=== PATIENT | female | born 1940 | race Caucasian/White ===

== ENCOUNTER 2016-12-14 17:31 | Inpatient (IN) | payer OTHER ==
--- NOTE | 2016-12-14 18:01 | PDOC ---
Attending Attestation - Resident Resident Name: Carlos Jeter - ED Attending Attestation I have performed the following: I have examined & evaluated the patient, The case was reviewed & discussed with the resident, I agree w/resident's findings & plan, Exceptions are as noted - HPI HPI: 12/14/16 19:08 76y F hx of dementia, HTN, NIDDM, arhtirits, depression presents with L sided chest pain. History is lijited due to her dementia. Per famly, she has been complaining of intermittent chets pain since yesterday, at her day program they noticed her saturation was low and that she was not as active as usual. The family notes the pt has been having increased coughing, especially at night. No associated fever/chills. on exam pt had some rales at the midlung on R chest. Her vitals noted for sat of 85% on RA, vitals otherwise normal. GENERAL: The patient is awake, alert, Nontoxic - in no acute distress. HEAD: Normocephalic, atraumatic. EYES: extraocular movements intact, sclera anicteric, conjunctiva clear. ENT: Normal voice, Moist mucous membranes. NECK: Normal range of motion, supple LUNGS: scant rales at right midlung HEART: Regular rate and rhythm, normal S1 and S2 without murmur, rub or gallop. ABDOMEN: mil dtenderness on L chest/ribs EXTREMITIES: Normal range of motion, no edema. No clubbing or cyanosis. No cords, erythema, or tenderness. NEUROLOGICAL: No facial assymetry, Normal speech, moving all 4 extremities spontaneously and symmetrically PSYCH: Normal mood, normal affect. SKIN: Warm, Dry, normal turgor, consider posisble pneumonia vs copd vs acs unclera what the pts bsaeline saturation is - but pt is not on O2. jaiden lorenzo work 12/14/16 23:08 pt labs reviewed noted for +UTI will admit fo rfurther management due to hypoxia ?pna - levaquin shuld cover both UTI/pna - Physicial Exam PE: 12/15/16 02:24 see above - Medical Decision Making 12/15/16 02:25 see above
[2016-12-14 18:29] LABS: BASOPHIL 0.7 % (0-2.0); EOSINOPHIL 0.4 % (0-4.5); MCH 28.4 pg (25.7-33.7); MCHC 33.2 g/dl (32.0-36.0); MEAN CELL VOLUME 85.5 fl (80-96); MEAN PLT VOLUME 7.8 fl (7.5-11.1); NEUTROPHILS 80.4 % (42.8-82.8); PLATELET COUNT 362 K/MM3 (134-434); RDW 14.1 % (11.6-15.6); WHITE BLOOD COUNT 12.7 K/mm3 (4.0-10.0)
--- NOTE | 2016-12-14 19:24 | PDOC ---
History of Present Illness - General Chief Complaint: Chest Pain Stated Complaint: CHEST PAIN Time Seen by Provider: 12/14/16 17:41 - History of Present Illness Initial Comments: 12/14/16 19:01 Patient is a 76 year old female with a history of dementia, HTN, arthritis who presents with left sided chest pain and fatigue. The patient is accompanied by her daughter who assists in providing the history. They report a week history of increased fatigue and isolation over the past week. Over the past 2 days however, the patient began experiencing left sided chest pain and while at her care center today, found to be hypoxic prompting their visit to the ED. She denies fevers, chills, SOB, abdominal pain, or changes with urination or bowel movements. Past History - Past Medical History Allergies/Adverse Reactions: Allergies Allergy/AdvReac Type Severity Reaction Status Date / Time No Known Allergies Allergy Verified 12/14/16 17:35 Home Medications: Ambulatory Orders Cholecalciferol (Vitamin D3) [Vitamin D3 -] 500,000 unit PO WEEKLY 12/14/16 Mirtazapine [Remeron -] 15 mg PO DAILY 12/14/16 Nicotine Patch [Nicoderm Patch -] 14 mg TD DAILY 12/14/16 Rivastigmine [Exelon] 9.5 each TD DAILY 12/14/16 Sertraline HCl [Zoloft] 50 mg PO DAILY 12/14/16 Anemia: Yes Diabetes: Yes (type II) HTN: Yes Hypercholesterolemia: Yes - Surgical History Cholecystectomy: Yes - Immunization History Immunization Up to Date: Yes - Psycho/Social/Smoking Cessation Hx Anxiety: Yes Suicidal Ideation: No Smoking History: Current every day smoker Have you smoked in the past 12 months: No Number of Cigarettes Smoked Daily: 6 Information on smoking cessation initiated: No 'Breaking Loose' booklet given: 12/20/13 Hx Alcohol Use: No Drug/Substance Use Hx: No Review of Systems - Review of Systems Constitutional: No: Chills, Fever Respiratory: No: Cough, Shortness of Breath Cardiac (ROS): Yes: Chest Pain. No: Palpitations, Chest Tightness ABD/GI: No: Constipated, Diarrhea, Nausea, Vomiting : No: Burning, Dysuria Integumentary: No: Rash Neurological: No: Headache, Numbness, Tingling, Weakness *Physical Exam - Vital Signs Last Vital Signs Temp Pulse Resp BP Pulse Ox 98.0 F 104 H 20 125/65 97 12/14/16 17:35 12/14/16 17:35 12/14/16 17:35 12/14/16 17:35 12/14/16 17:44 - Physical Exam Comments: 12/14/16 19:28 General Appearance: Nourished. No Apparent Distress HEENT: No Pharyngeal Erythema, Tonsillar Exudate, Tonsillar Erythema Respiratory/Chest: Lungs Clear, Normal Breath Sounds, Reproducible tenderness to palpation of the left chest just under the left breast. No Crackles, Rales, Rhonchi, Wheezing Cardiovascular: Regular Rhythm, Regular Rate. No Murmur, Gallop/S3, Gallop/S4 Gastrointestinal/Abdominal: Normal Bowel Sounds, Soft. No Guarding, Rebound, Tenderness Extremity: Normal Capillary Refill Integumentary: Normal Color, Dry, Warm Neurologic: Alert, Normal Response ED Treatment Course - LABORATORY CBC & Chemistry Diagram: 12/14/16 Unknown 12/14/16 Unknown - ADDITIONAL ORDERS Additional order review: 12/14/16 Unknown RBC 4.52 MCV 85.5 D MCHC 33.2 RDW 14.1 D MPV 7.8 D Neutrophils % 80.4 Lymphocytes % 13.2 D Monocytes % 5.3 Eosinophils % 0.4 D Basophils % 0.7 - RADIOLOGY Radiology Studies Ordered: Category Date Time Status CHEST X-RAY PORTABLE* [RAD] Stat Radiology 12/14/16 17:57 Taken Medical Decision Making - Medical Decision Making 12/14/16 19:28 Patient is a 76 year old female who presents with fatigue and chest pain. Differential includes but is not limited to: ACS, pneumonia, UTI, viral infection, metabolic derangement. We will obtain a cbc, cmp, troponin, EKG, vbg , and chest radiograph to evaluate. It appears that her chest pain is musculoskeletal in nature given that it is reproducible with palpation. 12/14/16 21:06 Chest radiograph does not demonstrate any infiltrates as read by our radiologist , however we feel she my clinically have a pneumonia given her hypoxia and rales on exam. CBC shows an elevated WBC to 12.7. cmp, troponin, EKG, vbg are unremarkable. UA demonstrates positive nitrites and 2+ leuk esterase concerning for UTI. We believe that the patient requires admission for further management given her hypoxia to 85% on RA, possible pneumonia, and UTI. We will contact the admitting team. 12/14/16 21:09 [facility]. *DC/Admit/Observation/Transfer Diagnosis at time of Disposition: Hypoxia UTI (urinary tract infection) Qualifiers: Urinary tract infection type: site unspecified Hematuria presence: without hematuria Qualified Code(s): N39.0 - Urinary tract infection, site not specified - Discharge Dispostion Condition at time of disposition: Guarded Admit: Yes - Referrals Referrals: Cassia Tamayo MD [Primary Care Provider] - - Attestations Physician Attestion: 12/14/16 21:01 I, Dr. Carlos Jeter, attest that this document has been prepared under my direction and personally reviewed by me in its entirety. I further attest, that it accurately reflects all work, treatment, procedures and medical decision -making performed by me.
[2016-12-14 19:47] LABS: VENOUS BLOOD GAS HCO3 24.6 meq/L (19-25); VENOUS PH 7.47 (7.32-7.42)
[2016-12-14 19:50] LABS: URINE APPEARANCE SLCLOUDY; URINE BILIRUBIN NEGATIVE (NEGATIVE); URINE BLOOD 2+ (NEGATIVE); URINE COLOR YELLOW; URINE GLUCOSE (UA) NEGATIVE (NEGATIVE); URINE KETONE NEGATIVE (NEGATIVE); URINE NITRITE POSITIVE (NEGATIVE); URINE PROTEIN NEGATIVE (NEGATIVE); URINE UROBILINOGEN NEGATIVE mg/dL (0.2-1.0)
[2016-12-14 19:56] LABS: ALBUMIN 2.4 g/dl (3.4-5.0); ANION GAP 7 (8-16); CALCIUM 8.6 mg/dL (8.5-10.1); CO2 26 mmol/L (21-32); GLUCOSE,RANDOM 126 mg/dL (74-106)
[2016-12-14 19:59] LABS: URINE BACTERIA RARE /hpf (NONE SEEN); URINE LEUK ESTERASE 2+ (NEGATIVE); URINE MUCUS RARE; URINE RBC 4 /hpf (0-3); URINE WBC 27 /hpf (3-5)
[2016-12-14 20:01] LABS: ALK PHOS 133 U/L (45-117); BILIRUBIN,TOTAL 0.3 mg/dL (0.2-1.0); CPK 25 IU/L (26-192); CREATININE 0.5 mg/dL (0.55-1.02); SGOT/AST 20 U/L (15-37); SGPT/ALT 24 U/L (12-78); TOT PROT 6.5 g/dl (6.4-8.2); TROPONIN I < 0.02 ng/ml (0.00-0.05)
[2016-12-14] MEDS ORDERED: LEVOFLOXACIN 500 MG IVPB 100 ML IVPB ONE ×2 (20:15→20:27)
[2016-12-14] MEDS ORDERED: ACETAMINOPHEN 325 MG TABLET (FP) PO PRN (22:23)
[2016-12-14 22:36] VITALS: BMI 20.6
[2016-12-14] MEDS: SODIUM CHLORIDE 1,000 ML IV SCH (22:41)
--- NOTE | 2016-12-14 23:39 | HP ---
CHIEF COMPLAINT: fatigue, hypoxia PCP: Dr. Alvares HISTORY OF PRESENT ILLNESS: This is a 76 year old female with a past medical history of dementia, HTN, arthritis, HLD, DM and ? COPD who presented to the ED wit fatigue x 1 week and hypoxia at daycare program today. Pt's daughter reports mother has been coughing , but she always coughs because she is a smoker but admits her cough is worse over the past 2 weeks. Pt reports not feeling well and holds below her left breast. She denies pain on minute and then tells her daughter that she has pain. She is a very poor historian and information is obtained from the daughter. When questioned, daughter does admit to new urinary incontinence for the past week or so. Daughter denies fever. ER course was notable for: (1) U/A c/w UTI (2) WBC 12.7 (3) CXR official read pending Recent Travel: denies PAST MEDICAL HISTORY: dementia-mild hypertension, on no medications at present Hyperlipidemia arthritis Diabetes-diet controlled as per daughter PAST SURGICAL HISTORY: cholecystectomy Tubal ligation Social History: Smoking: current every day smoker, 1ppd since age 13 Alcohol: daughter denies Drugs: daughter denies Allergies No Known Allergies Allergy (Verified 12/14/16 17:35) HOME MEDICATIONS: 3 Medication Instructions Recorded Cholecalciferol (Vitamin D3) 500,000 unit PO WEEKLY 12/14/16 [Vitamin D3 -] Mirtazapine [Remeron -] 15 mg PO DAILY 12/14/16 Nicotine Patch [Nicoderm Patch -] 14 mg TD DAILY 12/14/16 Rivastigmine [Exelon] 9.5 each TD DAILY 12/14/16 Sertraline HCl [Zoloft] 50 mg PO DAILY 12/14/16 REVIEW OF SYSTEMS CONSTITUTIONAL: generalized weakness, malaise Absent: fever, chills, diaphoresis, loss of appetite, weight change HEENT: Absent: rhinorrhea, nasal congestion, throat pain, throat swelling, difficulty swallowing, mouth swelling, ear pain, eye pain, visual changes CARDIOVASCULAR: Absent: chest pain, syncope, palpitations, irregular heart rate, lightheadedness , peripheral edema RESPIRATORY: Absent: cough, shortness of breath, dyspnea with exertion, orthopnea, wheezing, stridor, hemoptysis GASTROINTESTINAL: Absent: abdominal pain, abdominal distension, nausea, vomiting, diarrhea, constipation, melena, hematochezia GENITOURINARY: Absent: dysuria, frequency, urgency, hesitancy, hematuria, flank pain, genital pain MUSCULOSKELETAL: Absent: myalgia, arthralgia, joint swelling, back pain, neck pain SKIN: Absent: rash, itching, pallor HEMATOLOGIC/IMMUNOLOGIC: Absent: easy bleeding, easy bruising, lymphadenopathy, frequent infections ENDOCRINE: Absent: unexplained weight gain, unexplained weight loss, heat intolerance, cold intolerance NEUROLOGIC: Absent: headache, focal weakness or paresthesias, dizziness, unsteady gait, seizure, mental status changes, bladder or bowel incontinence PSYCHIATRIC: Absent: anxiety, depression, suicidal or homicidal ideation, hallucinations. PHYSICAL EXAMINATION Vital Signs - 24 hr 3 12/14/16 12/14/16 12/14/16 12/14/16 17:35 17:44 19:15 21:01 Temperature 98.0 F 98.1 F 99.9 F H Pulse Rate 104 H 94 H Pulse Rate [ 101 H Radial] Respiratory 20 24 18 Rate Blood Pressure 125/65 130/54 Blood Pressure 112/70 [Arm] O2 Sat by Pulse 90 L 97 92 L 96 Oximetry (%) GENERAL: Awake, alert, and oriented to person, in no acute distress. HEAD: Normal with no signs of trauma. EYES: Pupils equal, round and reactive to light, extraocular movements intact, sclera anicteric, conjunctiva clear. No lid lag. EARS, NOSE, THROAT: Ears normal, nares patent, oropharynx clear without exudates. Moist mucous membranes. NECK: Normal range of motion, supple without lymphadenopathy, JVD, or masses. LUNGS: Scattered expiratory wheezes, crackles RLL. No accessory muscle use. HEART: Regular rate and rhythm, normal S1 and S2 without murmur, rub or gallop. ABDOMEN: Soft, nontender, not distended, normoactive bowel sounds, no guarding, no rebound, no masses. No hepatomegaly or splenomegaly. MUSCULOSKELETAL: Normal range of motion at all joints. No bony deformities or tenderness. No CVA tenderness. pain under left breast reproducible with palpation UPPER EXTREMITIES: 2+ pulses, warm, well-perfused. No cyanosis. No clubbing. No peripheral edema. LOWER EXTREMITIES: 2+ pulses, warm, well-perfused. No calf tenderness. No peripheral edema. NEUROLOGICAL: Cranial nerves II-XII intact. Normal speech. Normal gait. PSYCHIATRIC: Cooperative. Good eye contact. Appropriate mood and affect. SKIN: Warm, dry, normal turgor, no rashes or lesions noted, normal capillary refill. Laboratory Results - last 24 hr 3 12/14/16 12/14/16 Unknown Unknown 19:35 22:20 WBC 12.7 H D RBC 4.52 Hgb 12.8 D Hct 38.6 D MCV 85.5 D MCH 28.4 D MCHC 33.2 RDW 14.1 D Plt Count 362 D MPV 7.8 D Neutrophils % 80.4 Lymphocytes % 13.2 D Monocytes % 5.3 Eosinophils % 0.4 D Basophils % 0.7 VBG pH 7.47 H POC VBG pCO2 34.3 L POC VBG pO2 86.4 H Mixed VBG HCO3 24.6 Sodium 136 Potassium 3.9 Chloride 103 Carbon Dioxide 26 Anion Gap 7 L BUN 7 D Creatinine 0.5 L Creat Clearance w eGFR > 60 Random Glucose 126 H Lactic Acid 0.7 Calcium 8.6 Total Bilirubin 0.3 D AST 20 D ALT 24 D Alkaline Phosphatase 133 H D Creatine Kinase 25 L Troponin I < 0.02 Total Protein 6.5 Albumin 2.4 L D Urine Color Urine Appearance Urine pH Ur Specific [place] Urine Protein Urine Glucose (UA) Urine Ketones Urine Blood Urine Nitrite Urine Bilirubin Urine Urobilinogen Ur Leukocyte Esterase Urine RBC Urine WBC Ur Epithelial Cells Urine Bacteria Urine Mucus 3 Urine Color Yellow 12/14/16 19:50 Urine Appearance Slcloudy 12/14/16 19:50 Urine pH 5.0 (5.0-8.0) 12/14/16 19:50 Ur Specific [place] 1.015 (1.005-1.025) 12/14/16 19:50 Urine Protein Negative (NEGATIVE) 12/14/16 19:50 Urine Glucose (UA) Negative (NEGATIVE) 12/14/16 19:50 Urine Ketones Negative (NEGATIVE) 12/14/16 19:50 Urine Blood 2+ (NEGATIVE) H 12/14/16 19:50 Urine Nitrite Positive (NEGATIVE) 12/14/16 19:50 Urine Bilirubin Negative (NEGATIVE) 12/14/16 19:50 Ur Leukocyte Esterase 2+ (NEGATIVE) H 12/14/16 19:50 Urine RBC 4 /hpf (0-3) 12/14/16 19:50 Urine WBC 27 /hpf (3-5) 12/14/16 19:50 Ur Epithelial Cells Rare /hpf (FEW) 12/14/16 19:50 Urine Bacteria Rare /hpf (NONE SEEN) 12/14/16 19:50 Urine Mucus Rare 12/14/16 19:50 CXR official read pending, ? atelectasis RLL, ? infiltrate LLL ECG: sinus tachycardia, possible left atrial enlargement, rate 103, QTC 450 ASSESSMENT/PLAN: 76yF with PMH dementia, DM, HTN, HLD, arthritis, ?COPD presented to ED with fatigue and hypoxia. She is being admitted for sepsis. Sepsis secondary to UTI and possible CAP - as evidenced by elevated WBC and tachycardia - will change levaquin to ceftriaxone and zithromax - NS @ 75cc/hr - oxygen 2LNC to maintain oxygen sat above 90 Chest pain - reproducible on palpation, trial of tylenol, likely not cardiac, trend trop x 1 more with am labs COPD exac - daughter reports mother has inhalers at home but does not use them - duoneb QIDR - azithromycin - oxygen nicotine dependence - nicoderm patch dementia - cont exelon patch, daughter will bring from home - daughter reports mother is on aricept as well, but will hold as that is redundant therapy - cont mirtazapine and zoloft for mood and sleep diabetes - cont diet control - BGM BID AC, add novolog if > 200 HTN - monitor BP, initiate meds if indicated DVT PPX - heparin BID FEN - NS @ 75cc/hr - BMP in am - diabetic diet Dispo: Pt currently requires inpatient care for management of her acute conditions. Visit type - Emergency Visit Emergency Visit: Yes ED Registration Date: 12/14/16 Care time: The patient presented to the Emergency Department on the above date and was hospitalized for further evaluation of their emergent condition. - New Patient This patient is new to me today: Yes Date on this admission: 12/14/16 - Critical Care Critical Care patient: No
[2016-12-15] MEDS: ALBUTEROL SO4 2.5/IPRATROPIUM 0.5 INH SOL 3 ML VIAL.NEB. NEB SCH ×4 (00:10→18:03)
[2016-12-15 08:23] LABS: BASOPHIL 0.8 % (0-2.0); EOSINOPHIL 0.3 % (0-4.5); MCH 28.3 pg (25.7-33.7); MCHC 32.9 g/dl (32.0-36.0); MEAN CELL VOLUME 85.9 fl (80-96); MEAN PLT VOLUME 8.3 fl (7.5-11.1); NEUTROPHILS 76.7 % (42.8-82.8); PLATELET COUNT 347 K/MM3 (134-434); RDW 13.8 % (11.6-15.6); WHITE BLOOD COUNT 10.1 K/mm3 (4.0-10.0)
[2016-12-15 08:25] LABS: CPK 16 IU/L (26-192); TROPONIN I < 0.02 ng/ml (0.00-0.05)
[2016-12-15 08:36] LABS: ANION GAP 8 (8-16); CALCIUM 8.3 mg/dL (8.5-10.1); CO2 26 mmol/L (21-32); CREATININE 0.5 mg/dL (0.55-1.02); GLUCOSE,RANDOM 112 mg/dL (74-106)
[2016-12-15] MEDS ORDERED: cefTRIAXone 1 GM/50 ML BAG (PRE-DOCKED) IVPB SCH (10:00)
[2016-12-15] MEDS ORDERED: PT OWN MED DRAWER 7, Y5N ONE (10:23)
[2016-12-15] MEDS ORDERED: cefTRIAXone SODIUM 1 GM VIAL ONE (10:23)
[2016-12-15] MEDS ORDERED: DEXTROSE 5%-WATER - 50 ML IVPB ONE (10:24)
[2016-12-15] MEDS: NICOTINE 14 MG/24 HOURS TOPICAL PATCH TD SCH (10:39)
[2016-12-15] MEDS: SERTRALINE HCL 25 MG TABLET (FP) PO SCH (10:40)
[2016-12-15] MEDS: HEPARIN NA (PORCINE) 5,000 UNITS/ML 1ML VIAL SQ SCH ×2 (10:40→21:32)
[2016-12-15] MEDS: AZITHROMYCIN IVPB 250 ML IVPB SCH (10:40)
[2016-12-15] MEDS: CEFTRIAXONE 1 GM in DEXTROSE 5%-WATER - 50 ML IVPB SCH (10:40)
[2016-12-15] MEDS: SODIUM CHLORIDE 1,000 ML IV SCH (10:45)
[2016-12-15 11:43] LABS: URINE APPEARANCE CLOUDY; URINE BILIRUBIN NEGATIVE (NEGATIVE); URINE BLOOD 1+ (NEGATIVE); URINE COLOR YELLOW; URINE GLUCOSE (UA) 1+ (NEGATIVE); URINE KETONE 1+ (NEGATIVE); URINE LEUK ESTERASE TRACE (NEGATIVE); URINE NITRITE NEGATIVE (NEGATIVE); URINE UROBILINOGEN NEGATIVE mg/dL (0.2-1.0)
[2016-12-15 11:57] LABS: URINE PROTEIN 2+ (NEGATIVE)
[2016-12-15 12:26] LABS: GRANULAR CASTS 7 /lpf; URINE HYALINE CAST 24 /lpf; URINE MUCUS RARE; URINE RBC 3 /hpf (0-3); URINE WBC 29 /hpf (3-5)
[2016-12-15] MEDS: RIVASTIGMINE 9.5 MG/24 HOURS TRANSDERMAL PATCH TD SCH (13:03)
--- NOTE | 2016-12-15 13:27 | EKG ---
Test Reason : Blood Pressure : / mmHG Vent. Rate : 103 BPM Atrial Rate : 103 BPM P-R Int : 142 ms QRS Dur : 078 ms QT Int : 344 ms P-R-T Axes : 044 048 017 degrees QTc Int : 450 ms SINUS TACHYCARDIA POSSIBLE LEFT ATRIAL ENLARGEMENT BORDERLINE ECG WHEN COMPARED WITH ECG OF 20-DEC-2013 18:06, NONSPECIFIC T WAVE ABNORMALITY NOW EVIDENT IN INFERIOR LEADS T WAVE AMPLITUDE HAS DECREASED IN LATERAL LEADS CLINICAL CORRELATION IS RECOMMENDED Confirmed by UNA YEE, CAREN ([id number]) on 12/15/2016 1:27:31 PM Referred By: Confirmed By:CAREN HEART MD
--- NOTE | 2016-12-15 13:33 | PN ---
Physical Exam: SUBJECTIVE: Patient seen and examined at bedside. Sleeping, easily arousable, but quicky falls back to sleep. Family members present including son and daughter. OBJECTIVE: Vital Signs Period Temp Pulse Resp BP Sys/[place] Pulse Ox Last 24 Hr 98.6 F 90 20 108/54 GENERAL: The patient is awake, responsive to questions, but lethargic. In no acute distress. HEAD: Normal with no signs of trauma. EYES: PERRL, extraocular movements intact, sclera anicteric, conjunctiva clear. No ptosis. LUNGS: Breath sounds equal, clear to auscultation bilaterally, no wheezes, no crackles, no accessory muscle use. HEART: Regular rate and rhythm, S1, S2 without murmur, rub or gallop. ABDOMEN: Soft, nontender, nondistended, normoactive bowel sounds, no guarding, no rebound EXTREMITIES: 2+ pulses, warm, well-perfused, no edema. NEUROLOGICAL: Cranial nerves II through XII grossly intact. Normal speech, gait not observed. Laboratory Results - last 24 hr 12/14/16 12/14/16 12/14/16 22:20 Unknown Unknown WBC 12.7 H D RBC 4.52 Hgb 12.8 D Hct 38.6 D MCV 85.5 D MCH 28.4 D MCHC 33.2 RDW 14.1 D Plt Count 362 D MPV 7.8 D Neutrophils % 80.4 Lymphocytes % 13.2 D Monocytes % 5.3 Eosinophils % 0.4 D Basophils % 0.7 Sodium 136 Potassium 3.9 Chloride 103 Carbon Dioxide 26 Anion Gap 7 L BUN 7 D Creatinine 0.5 L Creat Clearance w eGFR > 60 POC Glucometer Random Glucose 126 H Lactic Acid 0.7 Calcium 8.6 Total Bilirubin 0.3 D AST 20 D ALT 24 D Alkaline Phosphatase 133 H D Creatine Kinase 25 L Troponin I < 0.02 Total Protein 6.5 Albumin 2.4 L D Urine Color Urine Appearance Urine pH Urine Protein Urine Glucose (UA) Urine Ketones Urine Blood Urine Nitrite Urine Bilirubin Urine Urobilinogen Ur Leukocyte Esterase Urine RBC Urine WBC Ur Epithelial Cells Hyaline Casts Granular Casts Urine Mucus 12/15/16 12/15/16 12/15/16 06:17 06:30 06:30 WBC 10.1 H RBC 4.26 Hgb 12.1 Hct 36.6 MCV 85.9 MCH 28.3 MCHC 32.9 RDW 13.8 Plt Count 347 MPV 8.3 Neutrophils % 76.7 Lymphocytes % 16.8 D Monocytes % 5.4 Eosinophils % 0.3 Basophils % 0.8 Sodium Cancelled Potassium Cancelled Chloride Cancelled Carbon Dioxide Cancelled Anion Gap Cancelled BUN Cancelled Creatinine Cancelled Creat Clearance w eGFR POC Glucometer 109 Random Glucose Cancelled Lactic Acid Calcium Cancelled Total Bilirubin AST ALT Alkaline Phosphatase Creatine Kinase Troponin I Total Protein Albumin Urine Color Urine Appearance Urine pH Urine Protein Urine Glucose (UA) Urine Ketones Urine Blood Urine Nitrite Urine Bilirubin Urine Urobilinogen Ur Leukocyte Esterase Urine RBC Urine WBC Ur Epithelial Cells Hyaline Casts Granular Casts Urine Mucus 12/15/16 12/15/16 06:30 10:42 WBC RBC Hgb Hct MCV MCH MCHC RDW Plt Count MPV Neutrophils % Lymphocytes % Monocytes % Eosinophils % Basophils % Sodium 140 Potassium 3.9 Chloride 106 Carbon Dioxide 26 Anion Gap 8 BUN 7 Creatinine 0.5 L Creat Clearance w eGFR POC Glucometer Random Glucose 112 H Lactic Acid Calcium 8.3 L Total Bilirubin AST ALT Alkaline Phosphatase Creatine Kinase 16 L Troponin I < 0.02 Total Protein Albumin Urine Color Yellow Urine Appearance Cloudy Urine pH 7.0 D Urine Protein 2+ H Urine Glucose (UA) 1+ H Urine Ketones 1+ H Urine Blood 1+ H Urine Nitrite Negative Urine Bilirubin Negative Urine Urobilinogen Negative Ur Leukocyte Esterase Trace Urine RBC 3 Urine WBC 29 Ur Epithelial Cells Rare Hyaline Casts 24 Granular Casts 7 Urine Mucus Rare Active Medications Generic Name Dose Route Start Last Admin Trade Name Freq PRN Reason Stop Dose Admin Acetaminophen 650 mg 12/14/16 22:23 12/14/16 22:40 Tylenol - PO 650 mg Q6H PRN Administration FEVER OR PAIN Albuterol/Ipratropium 1 amp 12/15/16 00:00 12/15/16 11:33 Duoneb - NEB 1 amp QIDR SUZY Administration Ergocalciferol 50,000 unit 12/14/16 23:45 Drisdol - PO Q7D SUZY Heparin Sodium (Porcine) 5,000 unit 12/15/16 10:00 12/15/16 10:40 Heparin - SQ 5,000 unit BID SUZY Administration Azithromycin 250 mls @ 250 mls/hr 12/15/16 10:00 12/15/16 10:40 Zithromax 500mg Ivpb (Pre-Docked) IVPB 250 mls/hr DAILY SUZY Administration Sodium Chloride 1,000 mls @ 75 mls/hr 12/14/16 22:30 12/15/16 10:45 Normal Saline - IV 75 mls/hr ASDIR SUZY Administration Ceftriaxone Sodium 1 gm/ 50 mls @ 100 mls/hr 12/15/16 10:00 12/15/16 10:40 Dextrose IVPB 100 mls/hr DAILY SUZY Administration Mirtazapine 15 mg 12/15/16 22:00 Remeron - PO HS SUZY Nicotine 14 mg 12/15/16 10:00 12/15/16 10:39 Nicoderm Patch - TD 14 mg DAILY SUZY Administration Rivastigmine 9.5 each 12/15/16 10:00 12/15/16 13:03 Exelon Patch 9.5 Mg/24 Hours - TD 9.5 each DAILY SUZY Administration Sertraline HCl 50 mg 12/15/16 10:00 12/15/16 10:40 Zoloft - PO 50 mg DAILY SUZY Administration ASSESSMENT/PLAN 76 year-old female with a PMH of HTN, HLD, COPD, diet-controlled diabetes, arthritis, and dementia. Current every day smoker. Admitted for sepsis secondary to UTI. Sepsis secondary to UTI --tachycardic to 112, WBC 12.7k on admission, with 27 WBC in urine, meets sepsis criteria --symptoms of frequency, incontinence, fatigue --started on empiric ceftriaxone (day #1); urine culture pending r/o pneumonia --possible LLL infiltrate on CXR --continue empiric azithromycin (day #1) Chest pain --troponins x 2 negative --reproducible on exam --unlikely cardiac source COPD, chronic --active heavy smoker, coughs frequently --duonebs --Nicoderm patch --empiric antibiotics Dementia --continue Exelon patch, mirtazapine, Zoloft Diabeties --diet-controlled - BGM BID AC, add novolog if > 200 Hypertensioin --BP well-controlled --on no meds DVT PPX: subq heparin F/E/N Fluids: PO intake adequate Electrolytes: replete as indicated Nutrition: diabetic Physical therapy eval Dispo: continues to require inpatient care. Full Code. Visit type - Emergency Visit Emergency Visit: Yes ED Registration Date: 12/14/16 Care time: The patient presented to the Emergency Department on the above date and was hospitalized for further evaluation of their emergent condition. - New Patient This patient is new to me today: Yes Date on this admission: 12/15/16 - Critical Care Critical Care patient: No
[2016-12-15] MEDS: MIRTAZAPINE 15 MG TABLET (FP) PO SCH (21:32)
[2016-12-16] MEDS: ALBUTEROL SO4 2.5/IPRATROPIUM 0.5 INH SOL 3 ML VIAL.NEB. NEB SCH ×5 (00:01→23:09)
[2016-12-16 07:44] LABS: BASOPHIL 0.3 % (0-2.0); EOSINOPHIL 1.4 % (0-4.5); MCH 31.1 pg (25.7-33.7); MCHC 33.6 g/dl (32.0-36.0); MEAN CELL VOLUME 92.5 fl (80-96); MEAN PLT VOLUME 7.7 fl (7.5-11.1); NEUTROPHILS 71.7 % (42.8-82.8); PLATELET COUNT 174 K/MM3 (134-434); RDW 13.9 % (11.6-15.6); WHITE BLOOD COUNT 6.3 K/mm3 (4.0-10.0)
[2016-12-16 08:09] LABS: ALBUMIN 2.6 g/dl (3.4-5.0); ALK PHOS 62 U/L (45-117); ANION GAP 8 (8-16); BILIRUBIN,TOTAL 0.4 mg/dL (0.2-1.0); CALCIUM 7.5 mg/dL (8.5-10.1); CO2 24 mmol/L (21-32); CREATININE 0.8 mg/dL (0.55-1.02); GLUCOSE,RANDOM 92 mg/dL (74-106); MAGNESIUM 1.7 mg/dL (1.8-2.4); PHOSPHOROUS 1.5 mg/dL (2.5-4.9); SGOT/AST 8 U/L (15-37); SGPT/ALT 9 U/L (12-78); TOT PROT 5.6 g/dl (6.4-8.2)
--- NOTE | 2016-12-16 09:03 | PN ---
Physical Exam: SUBJECTIVE: Patient seen and examined, sitting on edge of bed. Pencil sketching cordova. No complaints. Denies dysuria, frequency, urgency. OBJECTIVE: Vital Signs Period Temp Pulse Resp BP Sys/De Leon Pulse Ox Last 24 Hr 98.4 F-98.9 F 78-84 18-20 99-108/48-53 GENERAL: The patient is awake, responsive to questions, but lethargic. In no acute distress. HEAD: Normal with no signs of trauma. EYES: PERRL, extraocular movements intact, sclera anicteric, conjunctiva clear. No ptosis. LUNGS: Breath sounds equal, clear to auscultation bilaterally, no wheezes, no crackles, no accessory muscle use. HEART: Regular rate and rhythm, S1, S2 without murmur, rub or gallop. ABDOMEN: Soft, nontender, nondistended, normoactive bowel sounds, no guarding, no rebound EXTREMITIES: 2+ pulses, warm, well-perfused, no edema. NEUROLOGICAL: Cranial nerves II through XII grossly intact. Normal speech, gait not observed. Laboratory Results - last 24 hr 12/15/16 12/15/16 12/16/16 10:42 17:15 06:00 WBC 6.3 D RBC 3.57 L Hgb 11.1 Hct 33.0 MCV 92.5 MCH 31.1 MCHC 33.6 RDW 13.9 Plt Count 174 D MPV 7.7 Neutrophils % 71.7 Lymphocytes % 18.0 Monocytes % 8.6 Eosinophils % 1.4 D Basophils % 0.3 Sodium Potassium Chloride Carbon Dioxide Anion Gap BUN Creatinine Creat Clearance w eGFR POC Glucometer 92 Random Glucose Hemoglobin A1c % Calcium Phosphorus Magnesium Total Bilirubin AST ALT Alkaline Phosphatase Total Protein Albumin Urine Color Yellow Urine Appearance Cloudy Urine pH 7.0 D Ur Specific [place] 1.020 Urine Protein 2+ H Urine Glucose (UA) 1+ H Urine Ketones 1+ H Urine Blood 1+ H Urine Nitrite Negative Urine Bilirubin Negative Urine Urobilinogen Negative Ur Leukocyte Esterase Trace Urine RBC 3 Urine WBC 29 Ur Epithelial Cells Rare Hyaline Casts 24 Granular Casts 7 Urine Mucus Rare 12/16/16 12/16/16 12/16/16 06:00 06:00 06:11 WBC RBC Hgb Hct MCV MCH MCHC RDW Plt Count MPV Neutrophils % Lymphocytes % Monocytes % Eosinophils % Basophils % Sodium 144 Potassium 3.6 Chloride 112 H Carbon Dioxide 24 Anion Gap 8 BUN 6 L Creatinine 0.8 D Creat Clearance w eGFR > 60 POC Glucometer 113 Random Glucose 92 Hemoglobin A1c % 5.4 Calcium 7.5 L Phosphorus 1.5 L Magnesium 1.7 L Total Bilirubin 0.4 D AST 8 L D ALT 9 L D Alkaline Phosphatase 62 D Total Protein 5.6 L Albumin 2.6 L Urine Color Urine Appearance Urine pH Ur Specific [place] Urine Protein Urine Glucose (UA) Urine Ketones Urine Blood Urine Nitrite Urine Bilirubin Urine Urobilinogen Ur Leukocyte Esterase Urine RBC Urine WBC Ur Epithelial Cells Hyaline Casts Granular Casts Urine Mucus Active Medications Generic Name Dose Route Start Last Admin Trade Name Freq PRN Reason Stop Dose Admin Acetaminophen 650 mg 12/14/16 22:23 12/14/16 22:40 Tylenol - PO 650 mg Q6H PRN Administration FEVER OR PAIN Albuterol/Ipratropium 1 amp 12/15/16 00:00 12/16/16 07:15 Duoneb - NEB 1 amp QIDR SUZY Administration Ergocalciferol 50,000 unit 12/16/16 10:00 Drisdol - PO Zuleta@10 SUZY Heparin Sodium (Porcine) 5,000 unit 12/15/16 10:00 12/15/16 21:32 Heparin - SQ 5,000 unit BID SUZY Administration Azithromycin 250 mls @ 250 mls/hr 12/15/16 10:00 12/15/16 10:40 Zithromax 500mg Ivpb (Pre-Docked) IVPB 250 mls/hr DAILY SUZY Administration Ceftriaxone Sodium 1 gm/ 50 mls @ 100 mls/hr 12/15/16 10:00 12/15/16 10:40 Dextrose IVPB 100 mls/hr DAILY SUZY Administration Magnesium Oxide 800 mg 12/16/16 08:57 Mag-Ox - PO 12/16/16 08:58 ONCE ONE Mirtazapine 15 mg 12/15/16 22:00 12/15/16 21:32 Remeron - PO 15 mg HS SUZY Administration Nicotine 14 mg 12/15/16 10:00 12/15/16 10:39 Nicoderm Patch - TD 14 mg DAILY SUZY Administration Potassium Phos/Sodium Phos 1 packet 12/16/16 14:00 Phos-Nak Packet - PO TID SUZY Rivastigmine 9.5 each 12/15/16 10:00 08/12/17 13:03 Exelon Patch 9.5 Mg/24 Hours - TD 9.5 each DAILY SUZY Administration Sertraline HCl 50 mg 12/15/16 10:00 12/15/16 10:40 Zoloft - PO 50 mg DAILY SUZY Administration ASSESSMENT/PLAN 76 year-old female with a PMH of HTN, HLD, COPD, diet-controlled diabetes, arthritis, and dementia. Current every day smoker. Admitted for sepsis secondary to UTI. Sepsis secondary to UTI --tachycardic resolved, WBC wnl --continue ceftriaxone (day #2); switch to PO meds tomorrow if continued improvement r/o pneumonia --possible LLL infiltrate on CXR --continue empiric azithromycin (day #2) Chest pain --troponins x 2 negative --reproducible on exam --unlikely cardiac source COPD, chronic --active heavy smoker, coughs frequently --duonebs --Nicoderm patch --empiric antibiotics Dementia --continue Exelon patch, mirtazapine, Zoloft Diabeties --diet-controlled - BGM BID AC, add novolog if > 200 Hypertensioin --BP well-controlled --on no meds DVT PPX: subq heparin F/E/N Fluids: PO intake adequate Electrolytes: replete as indicated Nutrition: diabetic Physical therapy eval Dispo: continues to require inpatient care. Full Code. Visit type - Emergency Visit Emergency Visit: Yes ED Registration Date: 12/14/16 Care time: The patient presented to the Emergency Department on the above date and was hospitalized for further evaluation of their emergent condition. - New Patient This patient is new to me today: No - Critical Care Critical Care patient: No
[2016-12-16] MEDS ORDERED: PT OWN MED DRAWER 7, Y5N ONE (09:04)
[2016-12-16] MEDS ORDERED: cefTRIAXone SODIUM 1 GM VIAL ONE (09:05)
[2016-12-16] MEDS ORDERED: DEXTROSE 5%-WATER - 50 ML IVPB ONE (09:05)
[2016-12-16] MEDS ORDERED: MAGNESIUM OXIDE 400 MG TABLET (FP) PO ONE (09:10)
[2016-12-16] MEDS: CEFTRIAXONE 1 GM in DEXTROSE 5%-WATER - 50 ML IVPB SCH (09:12)
[2016-12-16] MEDS: AZITHROMYCIN IVPB 250 ML IVPB SCH (09:54)
[2016-12-16] MEDS: NICOTINE 14 MG/24 HOURS TOPICAL PATCH TD SCH (09:54)
[2016-12-16] MEDS: HEPARIN NA (PORCINE) 5,000 UNITS/ML 1ML VIAL SQ SCH ×2 (09:55→21:23)
[2016-12-16] MEDS: RIVASTIGMINE 9.5 MG/24 HOURS TRANSDERMAL PATCH TD SCH (09:55)
[2016-12-16] MEDS: SERTRALINE HCL 25 MG TABLET (FP) PO SCH (09:56)
[2016-12-16] MEDS ORDERED: ERGOCALCIFEROL (VITAMIN D2) 50,000 UNIT CAPSULE (FP) PO SCH (10:00)
[2016-12-16] MEDS: NAPH,MB-DB/K PH,MBDB POWDER PACKET PO SCH ×2 (13:59→21:23)
[2016-12-16] MEDS: MIRTAZAPINE 15 MG TABLET (FP) PO SCH (21:23)
[2016-12-17] MEDS: NAPH,MB-DB/K PH,MBDB POWDER PACKET PO SCH (05:36)
[2016-12-17] MEDS: ALBUTEROL SO4 2.5/IPRATROPIUM 0.5 INH SOL 3 ML VIAL.NEB. NEB SCH ×2 (06:21→11:23)
[2016-12-17] MEDS ORDERED: cefTRIAXone SODIUM 1 GM VIAL ONE (08:32)
[2016-12-17] MEDS ORDERED: DEXTROSE 5%-WATER - 50 ML IVPB ONE (08:32)
[2016-12-17 09:04] VITALS: BP 148/84; PULSE 100; TEMP 98.6
--- NOTE | 2016-12-17 09:30 | DS ---
Physical Exam: SUBJECTIVE: Patient seen and examined at bedside. Feels much better, voices no complaints. OBJECTIVE: Vital Signs Period Temp Pulse Resp BP Sys/De Leon Pulse Ox Last 24 Hr 98.6 F-99.4 F 89-100 18-20 113-148/63-89 92 PHYSICAL EXAM GENERAL: The patient is awake, alert, in no acute distress. HEAD: Normal with no signs of trauma. EYES: PERRL, extraocular movements intact, sclera anicteric, conjunctiva clear. No ptosis. LUNGS: Breath sounds equal, clear to auscultation bilaterally, no wheezes, no crackles, no accessory muscle use. HEART: Regular rate and rhythm, S1, S2 without murmur, rub or gallop. ABDOMEN: Soft, nontender, nondistended, normoactive bowel sounds, no guarding, no rebound EXTREMITIES: 2+ pulses, warm, well-perfused, no edema. NEUROLOGICAL: Cranial nerves II through XII grossly intact. Normal speech, gait not observed. LABS CBCD WBC 6.3 K/mm3 (4.0-10.0) D 12/16/16 06:00 RBC 3.57 M/mm3 (3.60-5.2) L 12/16/16 06:00 Hgb 11.1 GM/dL (10.7-15.3) 12/16/16 06:00 Hct 33.0 % (32.4-45.2) 12/16/16 06:00 MCV 92.5 fl (80-96) 12/16/16 06:00 MCHC 33.6 g/dl (32.0-36.0) 12/16/16 06:00 RDW 13.9 % (11.6-15.6) 12/16/16 06:00 Plt Count 174 K/MM3 (134-434) D 12/16/16 06:00 MPV 7.7 fl (7.5-11.1) 12/16/16 06:00 CMP Sodium 144 mmol/L (136-145) 12/16/16 06:00 Potassium 3.6 mmol/L (3.5-5.1) 12/16/16 06:00 Chloride 112 mmol/L (98-107) H 12/16/16 06:00 Carbon Dioxide 24 mmol/L (21-32) 12/16/16 06:00 Anion Gap 8 (8-16) 12/16/16 06:00 BUN 6 mg/dL (7-18) L 12/16/16 06:00 Creatinine 0.8 mg/dL (0.55-1.02) D 12/16/16 06:00 Creat Clearance w eGFR > 60 (>60) 12/16/16 06:00 Calcium 7.5 mg/dL (8.5-10.1) L 12/16/16 06:00 Total Bilirubin 0.4 mg/dL (0.2-1.0) D 12/16/16 06:00 AST 8 U/L (15-37) L D 12/16/16 06:00 ALT 9 U/L (12-78) L D 12/16/16 06:00 Alkaline Phosphatase 62 U/L (45-117) D 12/16/16 06:00 Total Protein 5.6 g/dl (6.4-8.2) L 12/16/16 06:00 Albumin 2.6 g/dl (3.4-5.0) L 12/16/16 06:00 HOSPITAL COURSE: Date of Admission:12/14/16 Date of Discharge: 12/17/16 76 year-old female with a PMH of HTN, HLD, COPD, diet-controlled diabetes, arthritis, and dementia. Current every day smoker. Admitted for sepsis secondary to UTI. Sepsis secondary to UTI --tachycardic to 112, WBC 12.7k on admission, with 27 WBC in urine, met sepsis criteria --symptoms of frequency, incontinence, fatigue --started on empiric ceftriaxone x 3 doses (day #1); urine culture negative r/o pneumonia --possible LLL infiltrate on CXR --completed azithromycin x 3 days Chest pain --troponins x 2 negative --reproducible on exam --unlikely cardiac source COPD, chronic --active heavy smoker, coughs frequently --duonebs --Nicoderm patch --empiric antibiotics Dementia --continue Exelon patch, mirtazapine, Zoloft Diabeties --diet-controlled - BGM BID AC, add novolog if > 200 Hypertensioin --BP well-controlled --on no meds Minutes to complete discharge: 35 Discharge Summary Reason For Visit: URINARY TRACT INFECTION,HYPOXIA Current Active Problems Hypoxia (Acute) UTI (urinary tract infection) (Acute) Condition: Improved - Instructions Diet, Activity, Other Instructions: Two prescriptions for antibiotics have been sent to your pharmacy. It is very important that you take this medication as directed and that you FINISH all the medication even if you are feeling better. A third prescription has been sent for nicoderm patches. You should follow up with your primary care provider, Dr. Ac, within one week of your discharge. Return to the emergency department for any new or worsening symptoms. Referrals: Cassia Tamayo MD [Primary Care Provider] - 1 Week Disposition: HOME - Home Medications Comprehensive Discharge Medication List: Ambulatory Orders Cholecalciferol (Vitamin D3) [Vitamin D -] 500,000 unit PO WEEKLY 12/14/16 Mirtazapine [Remeron -] 15 mg PO DAILY 12/14/16 Rivastigmine [Exelon] 9.5 each TD DAILY 12/14/16 Sertraline HCl [Zoloft] 50 mg PO DAILY 12/14/16 Azithromycin 250 mg PO DAILY #3 tablet 12/17/16 Ciprofloxacin HCl [Cipro] 500 mg PO BID #10 tablet 12/17/16 Nicotine Patch [Nicoderm Patch -] 14 mg TD DAILY #30 patch 12/17/16 This patient is new to me today: No Emergency Visit: Yes ED Registration Date: 12/14/16 Care time: The patient presented to the Emergency Department on the above date and was hospitalized for further evaluation of their emergent condition. Critical Care patient: No - Discharge Referral Referred to [facility] No
[2016-12-17] MEDS: CEFTRIAXONE 1 GM in DEXTROSE 5%-WATER - 50 ML IVPB SCH (10:07)
[2016-12-17] MEDS ORDERED: PT OWN MED DRAWER 7, Y5N ONE (10:12)
[2016-12-17] MEDS: NICOTINE 14 MG/24 HOURS TOPICAL PATCH TD SCH (10:13)
[2016-12-17] MEDS: HEPARIN NA (PORCINE) 5,000 UNITS/ML 1ML VIAL SQ SCH (10:13)
[2016-12-17] MEDS: SERTRALINE HCL 25 MG TABLET (FP) PO SCH (10:13)
[2016-12-17] MEDS: RIVASTIGMINE 9.5 MG/24 HOURS TRANSDERMAL PATCH TD SCH (10:14)
[2016-12-17] MEDS: AZITHROMYCIN IVPB 250 ML IVPB SCH (10:15)
== END 2016-12-17 12:55 | disposition home or self-care (01) | DRG 871 ==
LOC: JER 17:31 → JERBED 21:01 → J6S 21:42
PROVIDERS: ADMIT Internal Medicine; ATTEND Nurse Practitioner Acute Care
DX: A41.9 Sepsis, unspecified organism (principal); J18.9 Pneumonia, unspecified organism; N39.0 Urinary tract infection, site not specified; E11.9 Type 2 diabetes mellitus without complications; I10 Essential (primary) hypertension; F32.9 Major depressive disorder, single episode, unspecified; F03.90 Unspecified dementia, unspecified severity, without behavioral disturbance, psychotic disturbance, mood disturbance, and anxiety; E78.00 Pure hypercholesterolemia, unspecified; F17.210 Nicotine dependence, cigarettes, uncomplicated; R32 Unspecified urinary incontinence; J44.9 Chronic obstructive pulmonary disease, unspecified; R09.02 Hypoxemia
CPT/HCPCS: 36415; 71010-TC; 80048; 80053; 81003; 81015; 82803; 83036; 83605; 83735; 84100; 84484; 85025; 87040; 87086; 93005; 93010; 94640; 97116-GP; 97161-GP; 99281-25; J1644

== ENCOUNTER 2019-11-24 03:43 | Inpatient (IN) | payer BC, OTHER ==
--- NOTE | 2019-11-24 03:52 | PDOC ---
History of Present Illness - General Chief Complaint: Injury Stated Complaint: HEAD LACERATION Time Seen by Provider: 11/24/19 03:52 History Source: Patient Exam Limitations: No Limitations - History of Present Illness Initial Comments: 11/24/19 03:52 HPI: 79yo F pmh Alzheimer's dementia, DM, no AC presenting s/p fall with head trauma at home. History provided by daughter, patient unable to recall events of fall. Daughter was in other room, heard a thump, ran into the room (under 10 seconds per her report) to find that her mother had fallen and hit her head on a shelf - noted a blanket near her feet that she believes may have tripped her. Reports mother was alert, no observed LOC, complaining of head pain, bleeding from her scalp. Denies any blood thinners. Patient reporting localized pain at site of injury, no other complaints with negative ROS. Daughter reports she is concerned that her mother has been urinating and defecating more frequently over the past week, has not been eating for the past two days due to loss of appetite - patient has not endorsed any other complaints. All: NKDA Meds: No AC, rest per chart PMH: As above PSH: Per chart Past History - Travel History Traveled outside of the country in the last 30 days: No Close contact w/someone who was outside of country & ill: No - Medical History Allergies/Adverse Reactions: Allergies Allergy/AdvReac Type Severity Reaction Status Date / Time No Known Allergies Allergy Verified 11/24/19 04:03 Home Medications: Ambulatory Orders Cholecalciferol (Vitamin D3) [Vitamin D -] 500,000 unit PO WEEKLY 12/14/16 Mirtazapine [Remeron -] 15 mg PO DAILY 12/14/16 Rivastigmine [Exelon] 9.5 each TD DAILY 12/14/16 Sertraline HCl [Zoloft] 50 mg PO DAILY 12/14/16 Azithromycin 250 mg PO DAILY #3 tablet 12/17/16 Ciprofloxacin HCl [Cipro] 500 mg PO BID #10 tablet 12/17/16 Nicotine Patch [Nicoderm Patch -] 14 mg TD DAILY #30 patch 12/17/16 Anemia: Yes Diabetes: Yes (type II) HTN: Yes Hypercholesterolemia: Yes - Surgical History Cholecystectomy: Yes - Immunization History Immunization Up to Date: Yes - Psycho-Social/Smoking History Smoking History: Current every day smoker Have you smoked in the past 12 months: No Number of Cigarettes Smoked Daily: 6 'Breaking Loose' booklet given: 12/20/13 Review of Systems - Review of Systems Able to Perform ROS?: Yes Is the patient limited Luxembourger proficient: No Constitutional: No: Chills, Fever, Weakness HEENTM: No: Blurred Vision, Throat Pain Respiratory: No: Cough, Shortness of Breath Cardiac (ROS): No: Chest Pain, Lightheadedness, Palpitations, Syncope, Chest Tightness ABD/GI: Yes: Diarrhea (for 1 week, "loose stools"), Poor Appetite, Poor Fluid Intake. No: Constipated, Nausea, Vomiting : Yes: Frequency. No: Burning, Dysuria Musculoskeletal: No: Muscle Pain, Muscle Weakness Integumentary: No: Bruising, Pruritus, Rash Neurological: No: Headache, Numbness, Tingling, Weakness Endocrine: Yes: Increased Urine. No: Increased Thirst Hematologic/Lymphatic: No: Anemia, Blood Clots, Easy Bleeding All Other Systems: Reviewed and Negative *Physical Exam - Physical Exam 11/24/19 04:18 Vitals reviewed, AFVSS GEN: Well appearing, elderly female, appears stated age, NAD, comfortable. HEENT: NC, 3cm laceration to galea on occiput with minimal bleeding. EOMI, PERRL. Sclera anicteric, non-injected. No facial asymmetry. Dry mucous membranes. Trachea midline. CV: RRR, S1/S2, no murmurs / rubs / gallops appreciated. LUNG: CTABL, normal work of breathing. No wheezes, rhonchi. +BL lower field crackles. No cough. Speaking full sentences. GI: Soft, NTND, +BS, no guarding, no rebound. No masses. EXTREMITIES: 2+ distal pulses. No clubbing / cyanosis / edema. No gross deformity in any extremity. SKIN: Warm, dry, no rashes appreciated, non-jaundiced. PSYCH: Normal mood and affect. Cooperative and appropriate. Demented. NEURO: CN grossly intact. Moving all extremities well. Normal strength and sensation grossly. ED Treatment Course - LABORATORY CBC & Chemistry Diagram: 11/24/19 05:11 11/24/19 05:11 Medical Decision Making - Medical Decision Making 07/21/20 04:25 79yo F pmh Alzheimer's dementia, DM, no AC presenting s/p fall with head trauma at home. Concerning for syncope, head trauma, absence of bleeding? Afebrile, hemodynamically stable, alert, pale. Workup for syncope, imaging to rule out ICH / fracture, admission for syncope evaluation at a minimum. - CBC, CMP, Troponin - CXR, EKG, NCHCT, C-spine - 1L IVF - Laceration repair 11/24/19 06:00 - Hgb 4.7, Leukocytosis 21.5 - Hyponatremia 124 - Daughter / HCP consented, 2U PRBCs ordered - T&Sx2 ordered, FOBT - EKG with depression V2, V3 - likely demand related in setting of severe anemia, negative troponin - 84bpm, NSR, normal axis, QTc 463, V2, V3 depressions Dispo: Admit Tele for Anemia, Syncope, Hyponatremia Discharge - Discharge Information Problems reviewed: Yes Clinical Impression/Diagnosis: Hyponatremia, Symptomatic anemia Syncope Qualifiers: Syncope type: unspecified Qualified Code(s): R55 - Syncope and collapse Scalp laceration Qualifiers: Encounter type: initial encounter Qualified Code(s): S01.01XA - Laceration without foreign body of scalp, initial encounter Condition: Guarded - Admission Yes - Follow up/Referral - Patient Discharge Instructions - Post Discharge Activity
--- NOTE | 2019-11-24 04:02 | PDOC ---
Attending Attestation - Resident Resident Name: Phan Kramer - ED Attending Attestation I have performed the following: I have examined & evaluated the patient, The case was reviewed & discussed with the resident, I agree w/resident's findings & plan - HPI HPI: 11/24/19 04:05 see resident hpi - Physicial Exam PE: 11/24/19 04:05 see resident exam - Medical Decision Making 11/24/19 04:05 79-year-old female status post probable mechanical fall with laceration to the back of the head Patient does have Alzheimer's, daughter at the bedside states that she has had diarrhea and increased urination over the last 2 weeks and she has been concerned Plan for labs, EKG, chest x-ray and CT scan of the head and cervical spine Pending results will likely hold for observation Discharge - Discharge Information Problems reviewed: Yes Clinical Impression/Diagnosis: Syncope, Scalp laceration Condition: Fair - Follow up/Referral - Patient Discharge Instructions - Post Discharge Activity
[2019-11-24] MEDS ORDERED: SODIUM CHLORIDE 0.9% 500 ML INFUS.BAG IV ONE (04:06)
[2019-11-24 05:30] LABS: BASO % 0.2 % (0-2.0); HEMATOCRIT 18.7 % (32.4-45.2); LYMPH % 2.5 % (8-40); MCHC 25.3 g/dl (32.0-36.0); MEAN CELL VOLUME 50.7 fl (80-96); MEAN PLT VOLUME 8.2 fl (7.5-11.1); MONO % 3.6 % (3.8-10.2); NEUT % 93.7 % (42.8-82.8); PLATELET COUNT 431 K/MM3 (134-434); RBC 3.68 M/mm3 (3.60-5.2); RDW 21.7 % (11.6-15.6); WHITE BLOOD COUNT 21.5 K/mm3 (4.0-10.0)
[2019-11-24 05:48] LABS: MCH 12.8 pg (25.7-33.7)
[2019-11-24 05:49] LABS: HEMOGLOBIN 4.7 GM/dL (10.7-15.3)
[2019-11-24 05:58] LABS: ALBUMIN 2.4 g/dl (3.4-5.0); ALK PHOS 129 U/L (45-117); ANION GAP 11 MMOL/L (8-16); BILIRUBIN,TOTAL 1.3 mg/dL (0.2-1); BLOOD UREA NITROGEN 9.3 mg/dL (7-18); CALCIUM 7.9 mg/dL (8.5-10.1); CHLORIDE 92 mmol/L (98-107); CO2 20 mmol/L (21-32); CREATININE 0.5 mg/dL (0.55-1.3); GLUCOSE,RANDOM 120 mg/dL (74-106); POTASSIUM 3.9 mmol/L (3.5-5.1); SGOT/AST 16 U/L (15-37); SGPT/ALT 13 U/L (13-61); SODIUM 124 mmol/L (136-145)
--- NOTE | 2019-11-24 08:18 | PDOC ---
*Physical Exam - Vital Signs Last Vital Signs Temp Pulse Resp BP Pulse Ox 98.5 F 86 17 103/74 95 11/24/19 06:58 11/24/19 06:58 11/24/19 06:58 11/24/19 06:58 11/24/19 06:58 - Physical Exam 11/24/19 08:13 I received signout from Dr. Kramer. MDM: 1. CT head and C-spine was performed. -> waiting on read. 2. laceration repair: 5-7cm long laceration visualized on posterior scalp. It was not bleeding. Sensation around the wound was intact at time of repair. I trimmed some of the hair around the wound and then irrigated it with 1/2 liter of normal saline. I then approximated the wound using stapler (used 7 sue). Wound is approximated well, and pt tolerated procedure well. 3. Stool occult blood: no blood visible on FOBT. 4. Patient accepted by medicine. 11/24/19 09:33 ED Treatment Course - LABORATORY CBC & Chemistry Diagram: 11/24/19 05:11 11/24/19 05:11 - ADDITIONAL ORDERS Additional order review: Laboratory Results 11/24/19 11/24/19 11/24/19 06:17 06:10 05:11 Sodium 124 L Potassium 3.9 Chloride 92 L Carbon Dioxide 20 L Anion Gap 11 BUN 9.3 Creatinine 0.5 L Est GFR (CKD-EPI)AfAm 105.94 Est GFR (CKD-EPI)NonAf 91.41 Random Glucose 120 H Calcium 7.9 L Total Bilirubin 1.3 H AST 16 ALT 13 Alkaline Phosphatase 129 H Troponin I < 0.02 Total Protein 6.0 L Albumin 2.4 L Blood Type Cancelled O POSITIVE Antibody Screen Cancelled Negative Crossmatch See Detail 11/24/19 05:11 RBC 3.68 MCV 50.7 L MCHC 25.3 L RDW 21.7 H MPV 8.2 Neutrophils % 93.7 H D Lymphocytes % 2.5 L D Monocytes % 3.6 L Eosinophils % 0.0 D Basophils % 0.2 - Medications Given in the ED: ED Medications Discontinued Medications Generic Name Dose Route Start Last Admin Trade Name Freq PRN Reason Stop Dose Admin Sodium Chloride 1,000 ml 11/24/19 04:06 11/24/19 05:19 Normal Saline - IV 11/24/19 04:07 1,000 ml ONCE ONE Administration Discharge - Discharge Information Problems reviewed: Yes Clinical Impression/Diagnosis: Hyponatremia, Symptomatic anemia Syncope Qualifiers: Syncope type: unspecified Qualified Code(s): R55 - Syncope and collapse Scalp laceration Qualifiers: Encounter type: initial encounter Qualified Code(s): S01.01XA - Laceration without foreign body of scalp, initial encounter Condition: Guarded - Admission Yes - Follow up/Referral - Patient Discharge Instructions - Post Discharge Activity
[2019-11-24 09:16] LABS: ANISOCYTOSIS 2+; MACROCYTOSIS 1+; PLATELET ESTIMATE NORMAL
--- NOTE | 2019-11-24 10:33 | HP ---
CHIEF COMPLAINT: s/p Fall PCP: Michael Lauren HISTORY OF PRESENT ILLNESS: 79 y/o F, pmh of HTN, HLD, DM, Alziehmers dementia, presents to the ED s/p Fall. As per Daughter, pt was found by daughter lying on her side on the floor for less than 10 seconds, with a laceration on the back of the head, surrounded by minimal blood, wit no loc, no active profuse bleeding, no active seizure or change from baseline mental status. As per daughter, she heard a noise and ran to find her elderly mother on the floor surround by a blanket, which she suspects lead to the patient tripping on the blanket while attempting to walk out of bed. As per pt, she does not remember the incident too well but reports that she had fallen. Pt has moderate dementia at baseline but did not have any acute changes in mental status as per daughter. She has had a minor fall once in the several years ago. In the Ed, she was found to have 3-4 cm laceration on the occipital side of her head, requiring sue x7, with multiple laboratory abnormalities including anemia of Hb 4.7 requiring 2 U PRBC and hyponatremia of 124 without acute mental status changes. Pt admits to suprapubic pain, mild dry cough of 1 month duration, decreased appetite for 2 days. Denies f/c/n/v/sob, chest pain, abdominal pain. ER course was notable for: (1) 2U PRBC (2) Hb 4.7 (3) CT head negative Recent Travel: PAST MEDICAL HISTORY: HTN, HLD, DM, Alziehmers dementia, PAST SURGICAL HISTORY: Social History: Smoking: Alcohol: Drugs: Allergies No Known Allergies Allergy (Verified 11/24/19 04:03) HOME MEDICATIONS: Home Medications Medication Instructions Recorded Cholecalciferol (Vitamin D3) 500,000 unit PO WEEKLY 12/14/16 [Vitamin D -] Mirtazapine [Remeron -] 15 mg PO DAILY 12/14/16 Sertraline HCl [Zoloft] 50 mg PO DAILY 12/14/16 Nicotine Patch [Nicoderm Patch -] 14 mg TD DAILY #30 patch 12/17/16 Alendronate Sodium [Fosamax] 1 tab WEEKLY 11/24/19 Donepezil HCl [Aricept] 10 mg PO DAILY 11/24/19 Lisinopril 5 mg PO DAILY 11/24/19 Metformin HCl [Glucophage] 500 mg PO DAILY 11/24/19 Simvastatin 40 mg PO HS 11/24/19 REVIEW OF SYSTEMS CONSTITUTIONAL: Admits: Loss of appetite Absent: fever, chills, diaphoresis, generalized weakness, HEENT: Absent: rhinorrhea, nasal congestion, throat pain, visual changes CARDIOVASCULAR: Absent: chest pain, syncope, RESPIRATORY: Admits: cough, Absent: shortness of breath, dyspnea with exertion, GASTROINTESTINAL: Admits: Diarrhea Absent: abdominal pain, abdominal distension, nausea, vomiting, GENITOURINARY: Admits: frequency Absent: dysuria, , urgency, hesitancy, hematuria, MUSCULOSKELETAL: Absent: myalgia, arthralgia, SKIN: Absent: rash, itching, pallor NEUROLOGIC: Absent: headache, focal weakness or paresthesias, dizziness,bowel incontinence PSYCHIATRIC: Absent: anxiety, depression, suicidal or homicidal ideation, hallucinations. PHYSICAL EXAMINATION Vital Signs - 24 hr 11/24/19 11/24/19 11/24/19 03:51 06:58 08:27 Temperature 98.1 F 98.5 F 97.8 F Pulse Rate 87 Pulse Rate [ 86 82 Apical] Respiratory 18 17 18 Rate Blood Pressure 138/84 Blood Pressure 103/74 125/51 L [Left Arm] O2 Sat by Pulse 97 95 99 Oximetry (%) 11/24/19 11/24/19 09:06 09:34 Temperature 98.5 F Pulse Rate Pulse Rate [ 80 85 Apical] Respiratory 18 18 Rate Blood Pressure Blood Pressure 100/56 L 115/56 L [Left Arm] O2 Sat by Pulse 95 99 Oximetry (%) GENERAL: Aox2 HEAD: 3-4 cm laceration of the occipital side of the head x 7 sue. Pale appearing EYES: Yellowing of the Sclera b/l. Pupils equal, round and reactive to light, extraocular movements intact, EARS, NOSE, THROAT: Dry mucous membranes. NECK: Supple, JVD, LUNGS: Breath sounds equal, clear to auscultation bilaterally. No wheezes, and no crackles. HEART: Regular rate and rhythm, normal S1 and S2 without rub or gallop. Grade 2 systolic murmur noted ABDOMEN: Soft, not distended, normoactive bowel sounds, no guarding, no rebound, no masses. LQ and suprapubic tenderness on deep palpation MUSCULOSKELETAL: Normal range of motion at all joints. LOWER EXTREMITIES: 2+ pulses, warm, well-perfused. No peripheral edema. NEUROLOGICAL: Aox2, strength and sensation intact 5/5 b/l. PSYCHIATRIC: Cooperative. Good eye contact. Appropriate mood and affect. SKIN: Warm, dry, normal turgor, no rashes or lesions noted, normal capillary refill. Laboratory Results - last 24 hr 11/24/19 11/24/19 11/24/19 05:11 05:11 06:10 WBC 21.5 H RBC 3.68 Hgb 4.7 L* Hct 18.7 L D MCV 50.7 L MCH 12.8 L D MCHC 25.3 L RDW 21.7 H Plt Count 431 D MPV 8.2 Absolute Neuts (auto) 20.1 H Neutrophils % 93.7 H D Neutrophils % (Manual) 95.0 H Band Neutrophils % 0.0 Lymphocytes % 2.5 L D Lymphocytes % (Manual) 4.0 L Monocytes % 3.6 L Monocytes % (Manual) 1 L Eosinophils % 0.0 D Eosinophils % (Manual) 0.0 Basophils % 0.2 Basophils % (Manual) 0.0 Myelocytes % (Man) 0 Promyelocytes % (Man) 0 Blast Cells % (Manual) 0 Nucleated RBC % 0 Metamyelocytes 0 Hypochromia 2+ Platelet Estimate Normal Polychromasia 1+ Poikilocytosis 1+ Anisocytosis 2+ Microcytosis 2+ Macrocytosis 1+ Sodium 124 L Potassium 3.9 Chloride 92 L Carbon Dioxide 20 L Anion Gap 11 BUN 9.3 Creatinine 0.5 L Est GFR (CKD-EPI)AfAm 105.94 Est GFR (CKD-EPI)NonAf 91.41 Random Glucose 120 H Calcium 7.9 L Total Bilirubin 1.3 H AST 16 ALT 13 Alkaline Phosphatase 129 H Troponin I < 0.02 Total Protein 6.0 L Albumin 2.4 L Stool Occult Blood Blood Type O POSITIVE Antibody Screen Negative Crossmatch See Detail 11/24/19 11/24/19 06:17 09:00 WBC RBC Hgb Hct MCV MCH MCHC RDW Plt Count MPV Absolute Neuts (auto) Neutrophils % Neutrophils % (Manual) Band Neutrophils % Lymphocytes % Lymphocytes % (Manual) Monocytes % Monocytes % (Manual) Eosinophils % Eosinophils % (Manual) Basophils % Basophils % (Manual) Myelocytes % (Man) Promyelocytes % (Man) Blast Cells % (Manual) Nucleated RBC % Metamyelocytes Hypochromia Platelet Estimate Polychromasia Poikilocytosis Anisocytosis Microcytosis Macrocytosis Sodium Potassium Chloride Carbon Dioxide Anion Gap BUN Creatinine Est GFR (CKD-EPI)AfAm Est GFR (CKD-EPI)NonAf Random Glucose Calcium Total Bilirubin AST ALT Alkaline Phosphatase Troponin I Total Protein Albumin Stool Occult Blood Negative Blood Type Cancelled Antibody Screen Cancelled Crossmatch ASSESSMENT/PLAN: 79 y/o F, pmh of HTN, HLD, DM, Alziehmers dementia, presents to the ED s/p Fall likely 2/2 to mechanical fall vs syncope #Fall likely 2/2 to Mechanical vs Syncope 2/2 to Symptomatic anemia vs UTI No LOC, no seizure like activities noted Leukocytosis could be reactive, r/o infxn, no SIRs, although suprapubic tenderness present Will get UA, UCx, LDH, BCx If infection present, low threshold for abx coverage Will get ECHO for cardiogenic causes in light of systolic murmur grade 2(Aortic stenosis likely) EKG: NSR, TWI in V1,2,3, w/ ST depressions in V3,4, - previous EKG in 2013 did not have these findings Will repeat EKG in am, currently asymptomatic, 1st trops neg Orthostatic vitals ordered PT Fall precautions #Microcyctic Anemia r/o acute blood loss anemia Hb 4.7, MCV 50 microcytic, RDW high, will need investigate source Head CT and CXR neg, SOBT neg, no hx of chronic anemia, patient pale in appearance Will get reticulocyte count for further investigation, if elevated consider hemolysis in light of scleral icterus Can get blood smear, indirect bili, haptoglobin, consider thalassemias LDH for hemolysis/ infection Iron panel consistent with iron deficiency SOBT negative will hold dvt ppx/chemical Tele monitoring Can consider further imaging/CAT a/p if needed to assess for malignancy(decreased appetite, anemia) COVID pending Isolation precaution #Hypovolemic Hyponatremia Na 124, slowly/cautiously correct (<8 meq/L/24hrs) NS at 100, r/p BMP pending Will repeat bmp every 4-6 hrs if hyponatremia worsening, consider 50 ml bolus of 3% hypertonic saline Usod, Uosm, Sosm Nephrology consult #Scleral Icterus likely 2/2 to hemolysis in setting of severe anemia will r/o obstruction RUQ US ordered LDH pending #Diarrhea c-diff ordered will monitor for now #HTN cont home meds- lisinopril #HLD cont statins #DM ISS BGM at home on metformin #Alzeihmers on Donepezil #DVT ppx SCD FEN IVF at 100 monitor lytes DM/Sodium controlled diet Dispo: cont IVF, BMP f/u, Hb f/u, UA f/u Visit type - Medication Review Med list reviewed for High Risk Meds patients 65 and older: Yes - Emergency Visit Emergency Visit: Yes ED Registration Date: 11/24/19 Care time: The patient presented to the Emergency Department on the above date and was hospitalized for further evaluation of their emergent condition. - New Patient This patient is new to me today: No - Critical Care Critical Care patient: No ATTENDING PHYSICIAN STATEMENT I saw and evaluated the patient. I reviewed the resident's note and discussed the case with the resident. I agree with the resident's findings and plan as documented. SUBJECTIVE: OBJECTIVE: ASSESSMENT AND PLAN:
[2019-11-24 10:40] LABS: IRON SERUM 9 ug/dL (50-175); LDH 218 U/L (84-246); TOTAL IRON BINDING CAPACITY 408 ug/dL (250-450)
[2019-11-24] MEDS: INSULIN SLIDING SCALE (NOVOLOG) 1 VIAL SQ SCH ×3 (11:00→21:55)
--- NOTE | 2019-11-24 11:47 | PN ---
Teaching Attending Note Name of Resident: Ata Chen ATTENDING PHYSICIAN STATEMENT I saw and evaluated the patient. I reviewed the resident's note and discussed the case with the resident. I agree with the resident's findings and plan as documented. SUBJECTIVE: 79 year old female with known history of hypertension, hyperlipidemia, type 2 DM, Dementia who was taken to The ED by daughter after she had been found on the ground, with a laceration on the back of the head after daughter heard a thud while across the room from her. Patient unable to give details that led to her fall. At the ED she was found to be profoundly hyponatremic, anemic, with leukocytosis of over 21. OBJECTIVE: 79 year old woman who appears appropriate for stated age and not in any distress HEENT: EOMIm, mildly icteric neck; supple no JVD CVS: 2/6 systolic murmur Abd soft, with suprapubic tenderness Ext; no edema, feet are warm and dry RELAY ASSOCIATE: oriented to self. Does not follow commands reliably. Moving all extremities without difficulty ASSESSMENT AND PLAN: 1. sp fall, ?etio - cardiac, infectious, metabolic etiologies, severe anemia - telemetry monitoring - IV fluid hydration - orthostatics - tropinins serially - echo - EKG with T wave changes anterior leads - repeat in AM 2. Leukocytosis - ddx: infectious, reactive, as primary considerations - recheck in am - check UA, blood cultures 3. Anemia - ddx: bleeding, hemolysis, decreased RBC formation - FOBT negative - iron studies - to consider CT abdomen, GI consultation as part of work up in the near future (op vs IP) 4. Hyponatremia - hypovolemic vs. euvolemic - suspect hypovolemic hyponat - review meds which may contribute - cautious fluid hydration - to consider nephrology consult 5. local wound care to the occipital laceration - cont close observation - sue are in place and aim remove in 7-10 days as wound healing allows 6. DVT ppx: SCD DW with Dr Chen. I agree with his plans of care, management, history and exam.
[2019-11-24] MEDS: SODIUM CHLORIDE 1,000 ML IV SCH ×2 (12:00→21:51)
--- NOTE | 2019-11-24 12:05 | EKG ---
Test Reason : Blood Pressure : / mmHG Vent. Rate : 084 BPM Atrial Rate : 084 BPM P-R Int : 146 ms QRS Dur : 096 ms QT Int : 392 ms P-R-T Axes : 064 076 035 degrees QTc Int : 463 ms NORMAL SINUS RHYTHM ABNORMAL ECG WHEN COMPARED WITH ECG OF 14-DEC-2016 17:47, NO SIGNIFICANT CHANGE WAS FOUND Confirmed by Randall Hendrix MD ([id number]) on 11/24/2019 12:04:51 PM Referred By: Confirmed By:Randall Hendrix MD
[2019-11-24 12:49] LABS: OSMOLALITY,SERUM 258 mosm/kg (278-305)
[2019-11-24] MEDS ORDERED: MIRTAZAPINE 15 MG TABLET (FP) PO SCH (14:30)
[2019-11-24] MEDS ORDERED: CHOLECALCIFEROL (VIT D3) 400 UNIT (10 MCG) TABLET PO SCH (14:30)
[2019-11-24 15:22] LABS: ALBUMIN 2.4 g/dl (3.4-5.0); BLOOD UREA NITROGEN 10.2 mg/dL (7-18); CALCIUM 8.1 mg/dL (8.5-10.1); CREATININE 0.5 mg/dL (0.55-1.3); MAGNESIUM 1.8 mg/dL (1.8-2.4); PHOSPHOROUS 2.1 mg/dL (2.5-4.9); POTASSIUM 4.1 mmol/L (3.5-5.1)
[2019-11-24 15:24] LABS: BILIRUBIN,TOTAL 3.2 mg/dL (0.2-1); TOT PROT 6.4 g/dl (6.4-8.2)
[2019-11-24 16:07] LABS: BASO % 0.5 % (0-2.0); HEMATOCRIT 26.6 % (32.4-45.2); MEAN CELL VOLUME 60.9 fl (80-96); MEAN PLT VOLUME 8.6 fl (7.5-11.1); NEUT % 90.5 % (42.8-82.8); PLATELET COUNT 389 K/MM3 (134-434); RBC 4.37 M/mm3 (3.60-5.2); RDW 35.9 % (11.6-15.6); WHITE BLOOD COUNT 20.7 K/mm3 (4.0-10.0)
[2019-11-24 16:09] LABS: MCH 18.3 pg (25.7-33.7)
[2019-11-24] MEDS ORDERED: SODIUM PHOSPHATE - 20 MM in DEXTROSE 5%-WATER - 500 ML IVPB ONE (17:16)
[2019-11-24 17:48] LABS: ANISOCYTOSIS 3+; MACROCYTOSIS 1+; OVALOCYTE 1+; PLATELET ESTIMATE ADEQUATE
[2019-11-24 18:12] LABS: EPI CELLS 16 /uL (0-25.1); HYALINE CASTS 0 /uL (0-3.1); PH,URINE 6.5 (5.0-8.0); URINE APPEARANCE CLEAR; URINE BACTERIA 1327 /uL (0-1359); URINE BILIRUBIN NEGATIVE (NEGATIVE); URINE COLOR YELLOW; URINE GLUCOSE (UA) NEGATIVE (NEGATIVE); URINE KETONE NEGATIVE (NEGATIVE); URINE LEUK ESTERASE 3+ (NEGATIVE); URINE NITRITE NEGATIVE (NEGATIVE); URINE PROTEIN NEGATIVE (NEGATIVE); URINE RBC 3 /uL (0-23.9); URINE WBC 81 /uL (0-25.8)
[2019-11-24] MEDS ORDERED: cefTRIAXone SODIUM 1 GM VIAL IVPB ONE (18:19)
[2019-11-24] MEDS ORDERED: CEFTRIAXONE 1 GM/50 ML BAG ONE (18:30)
[2019-11-24] MEDS: DONEPEZIL HCL 10 MG TABLET (FP) PO SCH (21:51)
[2019-11-24] MEDS: ATORVASTATIN CA 10 MG TABLET (FP) PO SCH (21:51)
[2019-11-24 22:14] LABS: BLOOD UREA NITROGEN 9.5 mg/dL (7-18); CREATININE 0.5 mg/dL (0.55-1.3); POTASSIUM 3.3 mmol/L (3.5-5.1)
[2019-11-25 01:58] LABS: HEMATOCRIT 23.7 % (32.4-45.2); HEMOGLOBIN 7.1 GM/dL (10.7-15.3); MCHC 29.9 g/dl (32.0-36.0); MEAN CELL VOLUME 60.3 fl (80-96); MEAN PLT VOLUME 8.6 fl (7.5-11.1); PLATELET COUNT 358 K/MM3 (134-434); RBC 3.93 M/mm3 (3.60-5.2); RDW 33.3 % (11.6-15.6); WHITE BLOOD COUNT 16.6 K/mm3 (4.0-10.0)
[2019-11-25 04:15] VITALS: BMI 21.8
[2019-11-25] MEDS: KCL 10 MEQ IVPB 10 MEQ/100 ML INFUS.BAG IVPB SCH ×3 (06:53→10:38)
[2019-11-25] MEDS: INSULIN SLIDING SCALE (NOVOLOG) 1 VIAL SQ SCH ×4 (07:18→21:25)
[2019-11-25 07:48] LABS: HEMOGLOBIN 7.5 GM/dL (10.7-15.3); MEAN CELL VOLUME 60.7 fl (80-96); MEAN PLT VOLUME 8.5 fl (7.5-11.1); PLATELET COUNT 369 K/MM3 (134-434); RBC 4.29 M/mm3 (3.60-5.2); WHITE BLOOD COUNT 14.3 K/mm3 (4.0-10.0)
[2019-11-25 08:06] LABS: MCH 17.6 pg (25.7-33.7)
[2019-11-25 08:18] LABS: ALBUMIN 2.2 g/dl (3.4-5.0); BILIRUBIN,TOTAL 1.4 mg/dL (0.2-1); BLOOD UREA NITROGEN 6.2 mg/dL (7-18); CALCIUM 7.9 mg/dL (8.5-10.1); PHOSPHOROUS 2.7 mg/dL (2.5-4.9); POTASSIUM 3.2 mmol/L (3.5-5.1); TOT PROT 5.5 g/dl (6.4-8.2)
[2019-11-25 08:42] LABS: CREATININE 0.3 mg/dL (0.55-1.3)
[2019-11-25] MEDS ORDERED: IRON SUCROSE INJECTION 200 MG in SODIUM CHLORIDE 90 ML IVPB ONE (09:00)
--- NOTE | 2019-11-25 09:51 | PN ---
Teaching Attending Note Name of Resident: Maya Kwok ATTENDING PHYSICIAN STATEMENT I saw and evaluated the patient. I reviewed the resident's note and discussed the case with the resident. I agree with the resident's findings and plan as documented. SUBJECTIVE: pt seen and examined at bedside, denies complains OBJECTIVE: Last Vital Signs Temp Pulse Resp BP Pulse Ox 98.1 F 81 20 111/52 L 95 11/25/19 08:56 11/25/19 08:56 11/25/19 08:56 11/25/19 08:56 11/25/19 08:56 GENERAL: Awake, alert, and oriented x2, in no acute distress. HEAD: occipital laceration EYES: Pupils equal, round and reactive to light, sclera anicteric, conjunctiva pale LUNGS: Breath sounds equal, clear to auscultation bilaterally. No wheezes, and no crackles. No accessory muscle use. HEART: Regular rate and rhythm, normal S1 and S2, systolic 3/6 murmur at upper sternal boarder w lt 2nd intercostal ABDOMEN: Soft, nontender, not distended MUSCULOSKELETAL: Normal range of motion at all joints. No bony deformities or tenderness. No CVA tenderness. UPPER EXTREMITIES: 2+ pulses, warm, well-perfused. No cyanosis. No clubbing. No peripheral edema. LOWER EXTREMITIES: 2+ pulses, warm, well-perfused. No calf tenderness. No peripheral edema. NEUROLOGICAL: Cranial nerves II-XII intact. Normal speech. CBCD WBC 14.3 K/mm3 (4.0-10.0) H 11/25/19 07:05 RBC 4.29 M/mm3 (3.60-5.2) 11/25/19 07:05 Hgb 7.5 GM/dL (10.7-15.3) L 11/25/19 07:05 Hct 26.0 % (32.4-45.2) L 11/25/19 07:05 MCV 60.7 fl (80-96) L 11/25/19 07:05 MCHC 29.0 g/dl (32.0-36.0) L 11/25/19 07:05 RDW 34.0 % (11.6-15.6) H 11/25/19 07:05 Plt Count 369 K/MM3 (134-434) 11/25/19 07:05 MPV 8.5 fl (7.5-11.1) 11/25/19 07:05 CMP Sodium 128 mmol/L (136-145) L 11/25/19 07:05 Potassium 3.2 mmol/L (3.5-5.1) L 11/25/19 07:05 Chloride 96 mmol/L (98-107) L 11/25/19 07:05 Carbon Dioxide 21 mmol/L (21-32) 11/25/19 07:05 Anion Gap 11 MMOL/L (8-16) 11/25/19 07:05 BUN 6.2 mg/dL (7-18) L 11/25/19 07:05 Creatinine 0.3 mg/dL (0.55-1.3) L 11/25/19 07:05 Calcium 7.9 mg/dL (8.5-10.1) L 11/25/19 07:05 Total Bilirubin 1.4 mg/dL (0.2-1) H 11/25/19 07:05 AST 14 U/L (15-37) L 11/25/19 07:05 ALT 10 U/L (13-61) L 11/25/19 07:05 Alkaline Phosphatase 117 U/L (45-117) 11/25/19 07:05 Total Protein 5.5 g/dl (6.4-8.2) L 11/25/19 07:05 Albumin 2.2 g/dl (3.4-5.0) L 11/25/19 07:05 ASSESSMENT AND PLAN: 79 year old female with known history of HTN, HLD, DMT2, Dementia who was taken to The ED by daughter after she had been found on the ground, with a laceration on the back of the head. Patient unable to give details that led to her fall. # S/p fall possible eitiology: orthostatic, severe anemia, hyponatremia c/w tele monitor, fall precautions IV hydration, check orthostatics trop x1 -ve, denies CP or dyspnea ECHO, repeat EKG Hg 4.7 responded to transfusion FOBT -ve, low ferritin, low MCV Leukocytosis, likely reactive, resolving local wound care to the occipital laceration PT # Microcytic Anemia ddx: bleeding, iron def, thalassemia FOBT negative iron studies, low Iron, will supplement venofer once then PO # Hyponatremia, euvolemic IV NS, trend cmp avoid rapid correction no neurological symptoms - to consider nephrology consult DM Alzheimer HTN HLD # DVT ppx: SCD
[2019-11-25] MEDS: SODIUM CHLORIDE 1,000 ML IV SCH ×2 (10:43→21:23)
[2019-11-25] MEDS ORDERED: PT OWN MED DRAWER 7, Y5N ONE (12:50)
--- NOTE | 2019-11-25 12:51 | EKG ---
Test Reason : Blood Pressure : / mmHG Vent. Rate : 078 BPM Atrial Rate : 078 BPM P-R Int : 174 ms QRS Dur : 090 ms QT Int : 398 ms P-R-T Axes : 058 066 031 degrees QTc Int : 453 ms NORMAL SINUS RHYTHM ABNORMAL ECG WHEN COMPARED WITH ECG OF 24-NOV-2019 06:13, NO SIGNIFICANT CHANGE WAS FOUND Confirmed by MD JESSICA, GUSTABO ([id number]) on 11/25/2019 12:51:29 PM Referred By: Confirmed By:GUSTABO LOPEZ MD
[2019-11-25] MEDS ORDERED: POTASSIUM CHLORIDE ORAL LIQUID 20 MEQ/15 ML PO ONE (14:53)
--- NOTE | 2019-11-25 15:20 | PN ---
Physical Exam: SUBJECTIVE: Patient seen and examined at bedside this morning. Patient was admitted due to fall. Patient could not recall anything that happened or why she was brought to the hospital. Otherwise, she denies any pain and has no complaints. OBJECTIVE: Vital Signs Temperature 98.1 F 11/25/19 14:00 Pulse Rate 85 11/25/19 14:00 Respiratory Rate 16 11/25/19 14:00 Blood Pressure 139/70 11/25/19 14:00 O2 Sat by Pulse Oximetry (%) 95 11/25/19 08:56 GENERAL: The patient is awake, alert, and oriented to person only, in no acute distress. HEAD: 3-4 cm laceration of the occipital side of the head x 7 sue NECK: full range of motion, supple. LUNGS: Breath sounds equal, clear to auscultation bilaterally HEART: Regular rate and rhythm, S1, S2 +holosystolic murmur ABDOMEN: Soft, nontender, nondistended, normoactive bowel sounds EXTREMITIES: 2+ pulses, warm, well-perfused, no edema. NEUROLOGICAL: Cranial nerves II through XII grossly intact. Normal speech PSYCH: Normal mood, normal affect. SKIN: Warm, dry, normal turgor Laboratory Results - last 24 hr 11/24/19 11/24/19 11/24/19 06:58 14:30 14:30 WBC RBC Hgb Hct MCV MCH MCHC RDW Plt Count MPV Absolute Neuts (auto) Total Counted Neutrophils % Neutrophils % (Manual) Lymphocytes % Lymphocytes % (Manual) Monocytes % Monocytes % (Manual) Eosinophils % Basophils % Nucleated RBC % Differential Comment Hypochromia Platelet Estimate Platelet Comment Polychromasia Poikilocytosis Anisocytosis Microcytosis Macrocytosis Ovalocytes Haptoglobin 207 Sodium 127 L Potassium 4.1 Chloride 95 L Carbon Dioxide 21 Anion Gap 11 BUN 10.2 Creatinine 0.5 L Est GFR (CKD-EPI)AfAm 105.94 Est GFR (CKD-EPI)NonAf 91.41 POC Glucometer Random Glucose 130 H Serum Osmolality Calcium 8.1 L Phosphorus 2.1 L Magnesium 1.8 Total Bilirubin 3.2 H AST 15 ALT 12 L Alkaline Phosphatase 144 H Troponin I 0.02 Total Protein 6.4 Albumin 2.4 L Urine Color Urine Appearance Urine pH Ur Specific Leblanc Urine Protein Urine Glucose (UA) Urine Ketones Urine Blood Urine Nitrite Urine Bilirubin Urine Urobilinogen Ur Leukocyte Esterase Urine WBC (Auto) Urine RBC (Auto) Urine Casts (Auto) U Epithel Cells (Auto) Urine Bacteria (Auto) Urine Osmolality Ur Random Sodium COVID-19 (CINDY) Not detected 11/24/19 11/24/19 11/24/19 15:53 16:56 16:57 WBC 20.7 H RBC 4.37 Hgb 8.0 L Hct 26.6 L D MCV 60.9 L D MCH 18.3 L D MCHC 30.0 L RDW 35.9 H Plt Count 389 MPV 8.6 Absolute Neuts (auto) 18.7 H Total Counted 100 Neutrophils % 90.5 H Neutrophils % (Manual) 91.0 H Lymphocytes % 5.0 L D Lymphocytes % (Manual) 6.0 L D Monocytes % 4.0 Monocytes % (Manual) 3 L D Eosinophils % 0.0 Basophils % 0.5 Nucleated RBC % 0 Differential Comment Man diff performed Hypochromia 2+ Platelet Estimate Adequate Platelet Comment Polychromasia 1+ Poikilocytosis 1+ Anisocytosis 3+ Microcytosis 2+ Macrocytosis 1+ Ovalocytes 1+ Haptoglobin Sodium Potassium Chloride Carbon Dioxide Anion Gap BUN Creatinine Est GFR (CKD-EPI)AfAm Est GFR (CKD-EPI)NonAf POC Glucometer 116 Random Glucose Serum Osmolality Calcium Phosphorus Magnesium Total Bilirubin AST ALT Alkaline Phosphatase Troponin I Total Protein Albumin Urine Color Yellow Urine Appearance Clear Urine pH 6.5 Ur Specific Leblanc 1.010 Urine Protein Negative Urine Glucose (UA) Negative Urine Ketones Negative Urine Blood Negative Urine Nitrite Negative Urine Bilirubin Negative Urine Urobilinogen 2.0 H Ur Leukocyte Esterase 3+ H Urine WBC (Auto) 81 Urine RBC (Auto) 3 Urine Casts (Auto) 0 U Epithel Cells (Auto) 16 Urine Bacteria (Auto) 1327 Urine Osmolality Ur Random Sodium COVID-19 (CINDY) 11/24/19 11/24/19 11/25/19 16:57 21:30 01:30 WBC 16.6 H RBC 3.93 Hgb 7.1 L Hct 23.7 L MCV 60.3 L MCH 18.0 L MCHC 29.9 L RDW 33.3 H Plt Count 358 MPV 8.6 Absolute Neuts (auto) Total Counted Neutrophils % Neutrophils % (Manual) Lymphocytes % Lymphocytes % (Manual) Monocytes % Monocytes % (Manual) Eosinophils % Basophils % Nucleated RBC % Differential Comment Hypochromia Platelet Estimate Platelet Comment Polychromasia Poikilocytosis Anisocytosis Microcytosis Macrocytosis Ovalocytes Haptoglobin Sodium 127 L Potassium 3.3 L Chloride 96 L Carbon Dioxide 21 Anion Gap 10 BUN 9.5 Creatinine 0.5 L Est GFR (CKD-EPI)AfAm 105.94 Est GFR (CKD-EPI)NonAf 91.41 POC Glucometer Random Glucose 201 H Serum Osmolality Calcium 8.0 L Phosphorus Magnesium Total Bilirubin AST ALT Alkaline Phosphatase Troponin I 0.02 Total Protein Albumin Urine Color Urine Appearance Urine pH Ur Specific Leblanc Urine Protein Urine Glucose (UA) Urine Ketones Urine Blood Urine Nitrite Urine Bilirubin Urine Urobilinogen Ur Leukocyte Esterase Urine WBC (Auto) Urine RBC (Auto) Urine Casts (Auto) U Epithel Cells (Auto) Urine Bacteria (Auto) Urine Osmolality 289 L Ur Random Sodium 21 L COVID-19 (CINDY) 11/25/19 11/25/19 11/25/19 05:34 07:05 07:05 WBC 14.3 H RBC 4.29 Hgb 7.5 L Hct 26.0 L MCV 60.7 L MCH 17.6 L MCHC 29.0 L RDW 34.0 H Plt Count 369 MPV 8.5 Absolute Neuts (auto) Total Counted Neutrophils % Neutrophils % (Manual) Lymphocytes % Lymphocytes % (Manual) Monocytes % Monocytes % (Manual) Eosinophils % Basophils % Nucleated RBC % Differential Comment Hypochromia Platelet Estimate Platelet Comment Polychromasia Poikilocytosis Anisocytosis Microcytosis Macrocytosis Ovalocytes Haptoglobin Sodium 128 L Potassium 3.2 L Chloride 96 L Carbon Dioxide 21 Anion Gap 11 BUN 6.2 L Creatinine 0.3 L Est GFR (CKD-EPI)AfAm 125.33 Est GFR (CKD-EPI)NonAf 108.14 POC Glucometer 124 Random Glucose 110 H Serum Osmolality Calcium 7.9 L Phosphorus 2.7 Magnesium Total Bilirubin 1.4 H AST 14 L ALT 10 L Alkaline Phosphatase 117 Troponin I Total Protein 5.5 L Albumin 2.2 L Urine Color Urine Appearance Urine pH Ur Specific Leblanc Urine Protein Urine Glucose (UA) Urine Ketones Urine Blood Urine Nitrite Urine Bilirubin Urine Urobilinogen Ur Leukocyte Esterase Urine WBC (Auto) Urine RBC (Auto) Urine Casts (Auto) U Epithel Cells (Auto) Urine Bacteria (Auto) Urine Osmolality Ur Random Sodium COVID-19 (CINDY) 11/25/19 07:05 WBC RBC Hgb Hct MCV MCH MCHC RDW Plt Count MPV Absolute Neuts (auto) Total Counted Neutrophils % Neutrophils % (Manual) Lymphocytes % Lymphocytes % (Manual) Monocytes % Monocytes % (Manual) Eosinophils % Basophils % Nucleated RBC % Differential Comment Hypochromia Platelet Estimate Platelet Comment Polychromasia Poikilocytosis Anisocytosis Microcytosis Macrocytosis Ovalocytes Haptoglobin Sodium Potassium Chloride Carbon Dioxide Anion Gap BUN Creatinine Est GFR (CKD-EPI)AfAm Est GFR (CKD-EPI)NonAf POC Glucometer Random Glucose Serum Osmolality 257 L Calcium Phosphorus Magnesium Total Bilirubin AST ALT Alkaline Phosphatase Troponin I Total Protein Albumin Urine Color Urine Appearance Urine pH Ur Specific Leblanc Urine Protein Urine Glucose (UA) Urine Ketones Urine Blood Urine Nitrite Urine Bilirubin Urine Urobilinogen Ur Leukocyte Esterase Urine WBC (Auto) Urine RBC (Auto) Urine Casts (Auto) U Epithel Cells (Auto) Urine Bacteria (Auto) Urine Osmolality Ur Random Sodium COVID-19 (CINDY) Active Medications Generic Name Dose Route Start Last Admin Trade Name Chasq PRN Reason Stop Dose Admin Atorvastatin Calcium 10 mg 11/24/19 22:00 11/24/19 21:51 Lipitor - PO 10 mg HS SUZY Administration Donepezil HCl 10 mg 11/24/19 22:00 11/24/19 21:51 Aricept - PO 10 mg HS SUZY Administration Sodium Chloride 1,000 mls @ 100 mls/hr 11/24/19 10:15 11/25/19 10:43 Normal Saline - IV 100 mls/hr ASDIR SUZY Administration Insulin Aspart 1 vial 11/24/19 11:00 11/25/19 11:54 Novolog Vial Sliding Scale - SQ Not Given ACHS SUZY Protocol Mirtazapine 15 mg 11/25/19 22:00 Remeron - PO HS SUZY ASSESSMENT/PLAN: Patient is an 79 y/o F, pmh of HTN, HLD, DM, Alzhiemers dementia, presents to the ED s/p Fall likely 2/2 to mechanical fall vs syncope. #s/p Fall -possibly 2/2 Mechanical, syncope, orthostatic , anemia, hyponatremia or infection -No LOC or seizure like activities noted -EKG: NSR, TWI in V1,2,3, w/ ST depressions in V3,4, repeat EKG with unchanged -Trop negative x2 -Echo pending -UA positive, LE 3+, bacteria>1000 -Will continue rocephin , pending UCx -Hgb 4.7, received 2u prbc, H/H now stable -Leukocytosis, likely reactive, trending down -Physical therapy -Fall precautions, neurochecks #Microcytic Anemia -likely QUENTIN with iron and ferritin low, r/o bleeding -FOBT negative -IV VEnofer given today, will continue with PO iron -monitor H/H #Hyponatremia -likely hypo-osmolar, hypovolemic -Continue IV NS @100cc/hr -avoid rapid correction, will continue to monitor bmp -no neurological symptoms #Hypokalemia -probably due to poor oral intake, reported episodes of diarrhea on admission -will monitor and replete prn #Elevated T bili -now trending down -RUQ US - s/p cholecystectomy with dilated CBD (identified on prior CT scan 2018) -Follows up with Dr. Bahena as outpatient -will continue to monitor #HTN -BP stable -will hold Lisinopril for now and monitor BP #HLD -Lipitor 10mg HS #DM -Hold home Metformin -Insulin sliding scale implemented -BGM ACHS #Alzheimer's dementia -continue home Donepezil -On sertraline and Zoloft #FEN -IV NS @100cc/hr -routine bmp monitoring -diabetic diet #Prophylaxis -SCDs, in setting of severe anemia #Disposition -tele monitoring Visit type - Emergency Visit Emergency Visit: Yes ED Registration Date: 11/24/19 Care time: The patient presented to the Emergency Department on the above date and was hospitalized for further evaluation of their emergent condition. - New Patient This patient is new to me today: Yes Date on this admission: 11/25/19 - Critical Care Critical Care patient: No - Medication Review Med list reviewed for High Risk Meds patients 65 and older: Yes ATTENDING PHYSICIAN STATEMENT I saw and evaluated the patient. I reviewed the resident's note and discussed the case with the resident. I agree with the resident's findings and plan as documented. SUBJECTIVE: OBJECTIVE: ASSESSMENT AND PLAN:
[2019-11-25] MEDS ORDERED: cefTRIAXone SODIUM 1 GM VIAL ONE (16:59)
[2019-11-25] MEDS ORDERED: DEXTROSE 5%-WATER - 50 ML IVPB ONE (17:00)
[2019-11-25] MEDS: CEFTRIAXONE 1 GM in DEXTROSE 5%-WATER - 50 ML IVPB SCH (17:05)
[2019-11-25 20:08] LABS: BLOOD UREA NITROGEN 5.6 mg/dL (7-18); CALCIUM 8.2 mg/dL (8.5-10.1); CREATININE 0.4 mg/dL (0.55-1.3); POTASSIUM 3.8 mmol/L (3.5-5.1)
[2019-11-25] MEDS: DONEPEZIL HCL 10 MG TABLET (FP) PO SCH (21:24)
[2019-11-25] MEDS: ATORVASTATIN CA 10 MG TABLET (FP) PO SCH (21:24)
[2019-11-25] MEDS: MIRTAZAPINE 15 MG TABLET (FP) PO SCH (21:25)
[2019-11-25] MEDS ORDERED: PATIENT'S OWN MEDICATION (NON-FORMULARY) (Simvastatin [Simvastatin] 40 MG) PO SCH (22:00)
[2019-11-26] MEDS: INSULIN SLIDING SCALE (NOVOLOG) 1 VIAL SQ SCH ×4 (06:28→22:05)
[2019-11-26 06:43] LABS: BASO % 0.3 % (0-2.0); EOS % 1.9 % (0-4.5); HEMATOCRIT 26.5 % (32.4-45.2); HEMOGLOBIN 7.8 GM/dL (10.7-15.3); MCHC 29.2 g/dl (32.0-36.0); MEAN CELL VOLUME 61.4 fl (80-96); MEAN PLT VOLUME 8.3 fl (7.5-11.1); NEUT % 77.8 % (42.8-82.8); PLATELET COUNT 410 K/MM3 (134-434); RBC 4.32 M/mm3 (3.60-5.2); RDW 34.9 % (11.6-15.6); WHITE BLOOD COUNT 9.4 K/mm3 (4.0-10.0)
[2019-11-26 06:57] LABS: MCH 17.9 pg (25.7-33.7)
[2019-11-26 07:16] LABS: ALBUMIN 2.2 g/dl (3.4-5.0); BILIRUBIN,TOTAL 0.7 mg/dL (0.2-1); BLOOD UREA NITROGEN 4.2 mg/dL (7-18); CALCIUM 8.2 mg/dL (8.5-10.1); CREATININE 0.4 mg/dL (0.55-1.3); MAGNESIUM 1.9 mg/dL (1.8-2.4); PHOSPHOROUS 2.6 mg/dL (2.5-4.9); POTASSIUM 3.8 mmol/L (3.5-5.1); TOT PROT 5.7 g/dl (6.4-8.2)
[2019-11-26] MEDS ORDERED: cefTRIAXone SODIUM 1 GM VIAL ONE (09:28)
[2019-11-26] MEDS ORDERED: DEXTROSE 5%-WATER - 50 ML IVPB ONE (09:28)
[2019-11-26] MEDS: CEFTRIAXONE 1 GM in DEXTROSE 5%-WATER - 50 ML IVPB SCH (09:36)
--- NOTE | 2019-11-26 10:04 | ECHO ---
Version: 1 Name: RAMOS MALONEY Exam: Adult Echocardiogram Study Date: 11/25/2019, 4:07 PM Age: 79 Years MMode/2D Measurements & Calculations IVSd: 1.10 cm LVIDs: 2.8 cm LVIDd: 4.2 cm LVPWd: 1.03 cm LAV (MOD-bp): 61.0 ml ACS: 1.60 cm Ao root diam: 3.2 cm LVOT diam: 1.71 cm LA dimension: 4.9 cm Doppler Measurements & Calculations MV E max ben: 182.8 cm/sec Med E/e': 36.8 MV A max ben: 102.6 cm/sec Med Peak E' Ben: 5.0 cm/sec MV E/A: 1.78 Lat E/e': 22.9 Lat Peak E' Ben: 8.0 cm/sec MR max P.8 mmHg Ao max P.5 mmHg Ao mean P.8 mmHg Ao V2 max: 136.8 cm/sec TR max ben: 339.6 cm/sec TR max P.2 mmHg Procedure A two-dimensional transthoracic echocardiogram with color flow and Doppler was performed. The study was technically difficult with many images being suboptimal in quality. The patient was in normal sinus rhythm during the exam. Left Ventricle The left ventricle is normal in size. Left ventricular systolic function is normal. Ejection Fractio n = 65%. Diastolic dysfunction, Grade II (pseudonormalization pattern). Right Ventricle The right ventricle is moderately dilated. The right ventricular systolic function is moderately red uced. Atria The left atrium is moderately dilated. The right atrium is moderately dilated. Mitral Valve Prolapse of the posterior mitral leaflet(s). There is moderate mitral regurgitation. The mitral regu rgitant jet is anteriorly directed, which is consistent with posterior leaflet pathology. Tricuspid Valve The tricuspid valve is normal. There is moderate tricuspid regurgitation. Right ventricular systolic pressure is elevated at 50-60mmHg. There is moderate pulmonary hypertension. Aortic Valve Fibrocalcific aortic valve without stenosis. The aortic valve is trileaflet. Mild aortic regurgitati on. Pulmonic Valve The pulmonic valve is not well seen, but is grossly normal. There is no pulmonic valvular regurgitat ion. Great Vessels The aortic root is normal size. Pericardium/Pleura There is no pericardial effusion. Tech Comments TDS. Patient agitated and restless. Language barrier also. Summary Statements Left ventricular systolic function is normal. Diastolic dysfunction, Grade II (pseudonormalization pattern). The right ventricle is moderately dilated. The left atrium is moderately dilated. The right atrium is moderately dilated. Prolapse of the posterior mitral leaflet(s). There is moderate mitral regurgitation. There is moderate tricuspid regurgitation. Right ventricular systolic pressure is elevated at 50-60mmHg. There is moderate pulmonary hypertension. Fibrocalcific aortic valve without stenosis. Mild aortic regurgitation. There is no pericardial effusion. MD Rey Graham 11/26/2019, 10:03 AM Ordering Physician: Mara Kwok Referring Physician: MARA CHURCH Performed By: Zeynep Ventura
--- NOTE | 2019-11-26 11:16 | PN ---
Teaching Attending Note Name of Resident: Maya Kwok ATTENDING PHYSICIAN STATEMENT I saw and evaluated the patient. I reviewed the resident's note and discussed the case with the resident. I agree with the resident's findings and plan as documented. SUBJECTIVE: seen and examined at bedside, denies complains OBJECTIVE: Last Vital Signs Temp Pulse Resp BP Pulse Ox 98.3 F 82 18 136/63 95 11/26/19 09:00 11/26/19 09:00 11/26/19 09:00 11/26/19 09:00 11/26/19 09:00 GENERAL: Awake, alert, and oriented x2, in no acute distress. HEAD: occipital laceration EYES: Pupils equal, round and reactive to light, sclera anicteric, conjunctiva pale LUNGS: Breath sounds equal, clear to auscultation bilaterally. No wheezes, and no crackles. No accessory muscle use. HEART: Regular rate and rhythm, normal S1 and S2, systolic 3/6 murmur at upper sternal boarder w lt 2nd intercostal ABDOMEN: Soft, nontender, not distended MUSCULOSKELETAL: Normal range of motion at all joints. No bony deformities or tenderness. No CVA tenderness. UPPER EXTREMITIES: 2+ pulses, warm, well-perfused. No cyanosis. No clubbing. No peripheral edema. LOWER EXTREMITIES: 2+ pulses, warm, well-perfused. No calf tenderness. No peripheral edema. NEUROLOGICAL: Cranial nerves II-XII intact. Normal speech. CBCD WBC 9.4 K/mm3 (4.0-10.0) 11/26/19 06:16 RBC 4.32 M/mm3 (3.60-5.2) 11/26/19 06:16 Hgb 7.8 GM/dL (10.7-15.3) L 11/26/19 06:16 Hct 26.5 % (32.4-45.2) L 11/26/19 06:16 MCV 61.4 fl (80-96) L 11/26/19 06:16 MCHC 29.2 g/dl (32.0-36.0) L 11/26/19 06:16 RDW 34.9 % (11.6-15.6) H 11/26/19 06:16 Plt Count 410 K/MM3 (134-434) 11/26/19 06:16 MPV 8.3 fl (7.5-11.1) 11/26/19 06:16 CMP Sodium 139 mmol/L (136-145) 11/26/19 06:16 Potassium 3.8 mmol/L (3.5-5.1) 11/26/19 06:16 Chloride 109 mmol/L (98-107) H 11/26/19 06:16 Carbon Dioxide 22 mmol/L (21-32) 11/26/19 06:16 Anion Gap 8 MMOL/L (8-16) 11/26/19 06:16 BUN 4.2 mg/dL (7-18) L 11/26/19 06:16 Creatinine 0.4 mg/dL (0.55-1.3) L 11/26/19 06:16 Calcium 8.2 mg/dL (8.5-10.1) L 11/26/19 06:16 Total Bilirubin 0.7 mg/dL (0.2-1) 11/26/19 06:16 AST 13 U/L (15-37) L 11/26/19 06:16 ALT 12 U/L (13-61) L 11/26/19 06:16 Alkaline Phosphatase 119 U/L (45-117) H 11/26/19 06:16 Total Protein 5.7 g/dl (6.4-8.2) L 11/26/19 06:16 Albumin 2.2 g/dl (3.4-5.0) L 11/26/19 06:16 ASSESSMENT AND PLAN: 79 year old female with known history of HTN, HLD, DMT2, Dementia who was taken to The ED by daughter after she had been found on the ground, with a laceration on the back of the head. Patient unable to give details that led to her fall. # S/p fall possible eitiology: orthostatic, severe anemia, hyponatremia c/w tele monitor, fall precautions IV hydration, check orthostatics trop x1 -ve, denies CP or dyspnea ECHO showed diastolic dysfunction, with pulm HTN Leukocytosis, likely reactive, resolved local wound care to the occipital laceration PT # Microcytic Anemia ddx: iron def, thalassemia FOBT negative, no evidence of bleeding, responded to transfusion appropriately stable h&H will provide another IV iron # Hyponatremia, euvolemic resolved d/c IV fluids DM Alzheimer HTN HLD # DVT ppx: SCD Discharge planning outpatient f/u with cardiology
[2019-11-26] MEDS ORDERED: IRON SUCROSE INJECTION 200 MG in SODIUM CHLORIDE 90 ML IVPB ONE (11:30)
--- NOTE | 2019-11-26 16:25 | DS ---
Physical Exam: SUBJECTIVE: Patient seen and examined OBJECTIVE: Vital Signs Temperature 97.7 F 11/26/19 14:00 Pulse Rate 81 11/26/19 14:00 Respiratory Rate 14 11/26/19 14:00 Blood Pressure 112/47 L 11/26/19 14:00 O2 Sat by Pulse Oximetry (%) 95 11/26/19 09:00 PHYSICAL EXAM GENERAL: The patient is awake, alert, and oriented to person only, in no acute distress. HEAD: 3-4 cm laceration of the occipital side of the head x 7 sue NECK: full range of motion, supple. LUNGS: Breath sounds equal, clear to auscultation bilaterally HEART: Regular rate and rhythm, S1, S2 +holosystolic murmur ABDOMEN: Soft, nontender, nondistended, normoactive bowel sounds EXTREMITIES: 2+ pulses, warm, well-perfused, no edema. NEUROLOGICAL: Cranial nerves II through XII grossly intact. Normal speech PSYCH: Normal mood, normal affect. SKIN: Warm, dry, normal turgor LABS Laboratory Results - last 24 hr 11/25/19 11/25/19 11/26/19 17:03 19:00 05:54 WBC RBC Hgb Hct MCV MCH MCHC RDW Plt Count MPV Absolute Neuts (auto) Neutrophils % Lymphocytes % Monocytes % Eosinophils % Basophils % Nucleated RBC % Sodium 129 L Potassium 3.8 Chloride 98 Carbon Dioxide 24 Anion Gap 7 L BUN 5.6 L Creatinine 0.4 L Est GFR (CKD-EPI)AfAm 114.01 Est GFR (CKD-EPI)NonAf 98.37 POC Glucometer 121 101 Random Glucose 141 H Calcium 8.2 L Phosphorus Magnesium Total Bilirubin AST ALT Alkaline Phosphatase Total Protein Albumin 11/26/19 11/26/19 06:16 06:16 WBC 9.4 RBC 4.32 Hgb 7.8 L Hct 26.5 L MCV 61.4 L MCH 17.9 L MCHC 29.2 L RDW 34.9 H Plt Count 410 MPV 8.3 Absolute Neuts (auto) 7.3 Neutrophils % 77.8 Lymphocytes % 13.0 D Monocytes % 7.0 Eosinophils % 1.9 D Basophils % 0.3 Nucleated RBC % 0 Sodium 139 Potassium 3.8 Chloride 109 H Carbon Dioxide 22 Anion Gap 8 BUN 4.2 L Creatinine 0.4 L Est GFR (CKD-EPI)AfAm 114.01 Est GFR (CKD-EPI)NonAf 98.37 POC Glucometer Random Glucose 102 Calcium 8.2 L Phosphorus 2.6 Magnesium 1.9 Total Bilirubin 0.7 AST 13 L ALT 12 L Alkaline Phosphatase 119 H Total Protein 5.7 L Albumin 2.2 L HOSPITAL COURSE: Date of Admission:11/24/19 Date of Discharge: 11/26/19 Patient is an 79 y/o F, pmh of HTN, HLD, DM, Alzhiemers dementia, presents to the ED s/p Fall. #s/p Fall -possibly multifactorial 2/2 Mechanical, syncope, orthostatic , anemia, hy ponatremia or infection -No LOC or seizure like activities noted -EKG: NSR, TWI in V1,2,3, w/ ST depressions in V3,4, repeat EKG with unchanged -Trop negative x2 -Echo revealed diastolic dysfunction, with pulm HTN -UA positive, LE 3+, bacteria>1000 -Received rocephin, Ucx negative -Hgb 4.7, received 2u prbc, H/H now stable -Leukocytosis, likely reactive, trending down -Physical therapy -Fall precautions, neurochecks #Microcytic Anemia -likely QUENTIN with iron and ferritin low -FOBT negative -IV VEnofer given x2, will continue with PO iron -monitor H/H #Hyponatremia -likely hypo-osmolar, hypovolemic -now improved, will d/c IV NS -no neurological symptoms #Hypokalemia -probably due to poor oral intake, reported episodes of diarrhea on admission -now resolved, will monitor and replete prn #Elevated T bili -now trending down -RUQ US - s/p cholecystectomy with dilated CBD (identified on prior CT scan 2018) -Follows up with Dr. Bahena as outpatient Minutes to complete discharge: 36 Discharge Summary Problems reviewed: Yes Reason For Visit: ANEMIA,SYNCOPE Current Active Problems Hyponatremia (Acute) Scalp laceration (Acute) Symptomatic anemia (Acute) Syncope (Acute) Condition: Improved - Instructions Diet, Activity, Other Instructions: Your visit You were admitted to the hospital because you had a fall. A CAT scan of you head was unremarkable. You were noted to be anemic, where your red blood cells are low, and you received 2 bags of blood. You had iron deficiency which contributed to your anemia and you will start taking iron pills. A prescription has been provided. Please note that iron pills may cause your stools to get dark colored and constipation. You may take stool softeners as needed for constipation. You had an ultrasound of your heart which showed that the heart is too stiff. When the heart pumps, it doesn't relax and fill with blood normally. Please follow up with the salvage inspector for further management. A referral has been provided for Dr. Graham. Medications Please take the following medications as prescribed: 1. Feosol 325mg once daily Please continue your other home medications. Follow up Please follow up with your primary care provider in 1 week. Please follow up with the salvage inspector in 1-2 weeks. If you do not have one, we provided you a referral with Dr. Grahma. Additional info Please call 911 or go to the ED if with any worsening fevers, chills, headache, dizziness, chest pain, shortness of breath, belly pain or any new concerns noted. Referrals: Rey Garham MD [Staff Physician] - Cassia Tamayo MD [Primary Care Provider] - Disposition: RETIREMENT FACILITY - Home Medications Comprehensive Discharge Medication List: Ambulatory Orders Cholecalciferol (Vitamin D3) [Vitamin D -] 500,000 unit PO WEEKLY 12/14/16 Mirtazapine [Remeron -] 15 mg PO DAILY 12/14/16 Sertraline HCl [Zoloft] 50 mg PO DAILY 12/14/16 Nicotine Patch [Nicoderm Patch -] 14 mg TD DAILY #30 patch 12/17/16 Alendronate Sodium [Fosamax] 1 tab WEEKLY 11/24/19 Donepezil HCl [Aricept] 10 mg PO DAILY 11/24/19 Lisinopril 5 mg PO DAILY 11/24/19 Metformin HCl [Glucophage] 500 mg PO DAILY 11/24/19 Simvastatin 40 mg PO HS 11/24/19 Ferrous Sulfate [Feosol] 325 mg PO DAILY ud 11/26/19 This patient is new to me today: No Emergency Visit: Yes ED Registration Date: 11/24/19 Care time: The patient presented to the Emergency Department on the above date and was hospitalized for further evaluation of their emergent condition. Critical Care patient: No - Discharge Referral Referred to [facility] Med P.C.: No ATTENDING PHYSICIAN STATEMENT I saw and evaluated the patient. I reviewed the resident's note and discussed the case with the resident. I agree with the resident's findings and plan as documented. SUBJECTIVE: OBJECTIVE: ASSESSMENT AND PLAN:
[2019-11-26] MEDS: MIRTAZAPINE 15 MG TABLET (FP) PO SCH (22:05)
[2019-11-26] MEDS: ATORVASTATIN CA 10 MG TABLET (FP) PO SCH (22:05)
[2019-11-26] MEDS: DONEPEZIL HCL 10 MG TABLET (FP) PO SCH (22:06)
[2019-11-27] MEDS: INSULIN SLIDING SCALE (NOVOLOG) 1 VIAL SQ SCH ×4 (06:38→21:26)
[2019-11-27] MEDS: FERROUS SO4 325 MG TABLET (FP) PO SCH (09:28)
--- NOTE | 2019-11-27 11:27 | PN ---
Teaching Attending Note Name of Resident: Maya Kwok ATTENDING PHYSICIAN STATEMENT I saw and evaluated the patient. I reviewed the resident's note and discussed the case with the resident. I agree with the resident's findings and plan as documented. SUBJECTIVE: pt seen and examined at bedside, denies complains OBJECTIVE: Last Vital Signs Temp Pulse Resp BP Pulse Ox 98.7 F 78 16 117/57 L 95 11/27/19 09:30 11/27/19 09:30 11/27/19 09:30 11/27/19 09:30 11/27/19 09:30 GENERAL: Awake, alert, and oriented x2, in no acute distress. HEAD: occipital laceration EYES: Pupils equal, round and reactive to light, sclera anicteric, conjunctiva pale LUNGS: Breath sounds equal, clear to auscultation bilaterally. No wheezes, and no crackles. No accessory muscle use. HEART: Regular rate and rhythm, normal S1 and S2, systolic 3/6 murmur at upper sternal boarder w lt 2nd intercostal ABDOMEN: Soft, nontender, not distended MUSCULOSKELETAL: Normal range of motion at all joints. No bony deformities or tenderness. No CVA tenderness. UPPER EXTREMITIES: 2+ pulses, warm, well-perfused. No cyanosis. No clubbing. No peripheral edema. LOWER EXTREMITIES: 2+ pulses, warm, well-perfused. No calf tenderness. No peripheral edema. NEUROLOGICAL: Cranial nerves II-XII intact. Normal speech. CBCD WBC 9.4 K/mm3 (4.0-10.0) 11/26/19 06:16 RBC 4.32 M/mm3 (3.60-5.2) 11/26/19 06:16 Hgb 7.8 GM/dL (10.7-15.3) L 11/26/19 06:16 Hct 26.5 % (32.4-45.2) L 11/26/19 06:16 MCV 61.4 fl (80-96) L 11/26/19 06:16 MCHC 29.2 g/dl (32.0-36.0) L 11/26/19 06:16 RDW 34.9 % (11.6-15.6) H 11/26/19 06:16 Plt Count 410 K/MM3 (134-434) 11/26/19 06:16 MPV 8.3 fl (7.5-11.1) 11/26/19 06:16 CMP Sodium 139 mmol/L (136-145) 11/26/19 06:16 Potassium 3.8 mmol/L (3.5-5.1) 11/26/19 06:16 Chloride 109 mmol/L (98-107) H 11/26/19 06:16 Carbon Dioxide 22 mmol/L (21-32) 11/26/19 06:16 Anion Gap 8 MMOL/L (8-16) 11/26/19 06:16 BUN 4.2 mg/dL (7-18) L 11/26/19 06:16 Creatinine 0.4 mg/dL (0.55-1.3) L 11/26/19 06:16 Calcium 8.2 mg/dL (8.5-10.1) L 11/26/19 06:16 Total Bilirubin 0.7 mg/dL (0.2-1) 11/26/19 06:16 AST 13 U/L (15-37) L 11/26/19 06:16 ALT 12 U/L (13-61) L 11/26/19 06:16 Alkaline Phosphatase 119 U/L (45-117) H 11/26/19 06:16 Total Protein 5.7 g/dl (6.4-8.2) L 11/26/19 06:16 Albumin 2.2 g/dl (3.4-5.0) L 11/26/19 06:16 ASSESSMENT AND PLAN: 79 year old female with known history of HTN, HLD, DMT2, Dementia who was taken to The ED by daughter after she had been found on the ground, with a laceration on the back of the head. Patient unable to give details that led to her fall. # S/p fall possible eitiology: orthostatic, severe anemia, hyponatremia fall precautions, PT eval local wound care to the occipital laceration # Microcytic Anemia ddx: iron def, thalassemia FOBT negative, no evidence of bleeding, responded to transfusion appropriately stable h&H, improving iron and vit c supplement DM Alzheimer HTN HLD # DVT ppx: SCD Discharge planning outpatient f/u with cardiology
--- NOTE | 2019-11-27 20:27 | PROC ---
Intubation - Intubation Reason for Intubation: Airway Protection Time of Intubation: 19:55 Intubation Method: orotracheal Tube Size (cm): 7.5 Tube position @ lip (cm): 21 Tube position confirmed by: Direct visualization, CO2 detector, Breath sounds Breath Sounds after Intubation: equal Post Intubation Xray: Yes Remarks: pt. unresponsive and with agonal breathing. Pt. unresponsive. Intubated with muscle relaxant alone. easy intubation. post intubation VS: 149/79, HR: 110, O2: 99% transfer to ICU: management per primary team/ICU team. Check CXR and ABG.
[2019-11-27] MEDS: MIRTAZAPINE 15 MG TABLET (FP) PO SCH (21:26)
[2019-11-27] MEDS: ATORVASTATIN CA 10 MG TABLET (FP) PO SCH (21:26)
[2019-11-27] MEDS: DONEPEZIL HCL 10 MG TABLET (FP) PO SCH (21:26)
[2019-11-28] MEDS: INSULIN SLIDING SCALE (NOVOLOG) 1 VIAL SQ SCH ×4 (06:17→21:48)
--- NOTE | 2019-11-28 09:31 | PN ---
Physical Exam: SUBJECTIVE: Patient seen and examined, doing well, denies pain OBJECTIVE: Vital Signs Period Temp Pulse Resp BP Sys/De Leon Pulse Ox Last 24 Hr 97.6 F-98.7 F 78-90 16-16 117-145/57-73 88-95 GENERAL: Awake, alert, and oriented x2, in no acute distress. HEAD: occipital laceration EYES: Pupils equal, round and reactive to light, sclera anicteric, conjunctiva pale LUNGS: Breath sounds equal, clear to auscultation bilaterally. No wheezes, and no crackles. No accessory muscle use. HEART: Regular rate and rhythm, normal S1 and S2, systolic 3/6 murmur at upper sternal boarder w lt 2nd intercostal ABDOMEN: Soft, nontender, not distended MUSCULOSKELETAL: Normal range of motion at all joints. No bony deformities or tenderness. No CVA tenderness. UPPER EXTREMITIES: 2+ pulses, warm, well-perfused. No cyanosis. No clubbing. No peripheral edema. LOWER EXTREMITIES: 2+ pulses, warm, well-perfused. No calf tenderness. No peripheral edema. NEUROLOGICAL: Cranial nerves II-XII intact. Normal speech. Laboratory Results - last 24 hr 11/24/19 11/27/19 06:10 11:45 POC Glucometer 97 Blood Type O POSITIVE Antibody Screen Negative Crossmatch See Detail Active Medications Generic Name Dose Route Start Last Admin Trade Name Freq PRN Reason Stop Dose Admin Atorvastatin Calcium 10 mg 11/24/19 22:00 11/27/19 21:26 Lipitor - PO 10 mg HS SUZY Administration Donepezil HCl 10 mg 11/24/19 22:00 11/27/19 21:26 Aricept - PO 10 mg HS SUZY Administration Ferrous Sulfate 325 mg 11/27/19 10:00 11/27/19 09:28 Feosol - PO 325 mg DAILY SUZY Administration Insulin Aspart 1 vial 11/24/19 11:00 11/28/19 06:17 Novolog Vial Sliding Scale - SQ Not Given ACHS SUZY Protocol Mirtazapine 15 mg 11/25/19 22:00 11/27/19 21:26 Remeron - PO 15 mg HS SUZY Administration ASSESSMENT/PLAN: 79 year old female with known history of HTN, HLD, DMT2, Dementia who was taken to The ED by daughter after she had been found on the ground, with a laceration on the back of the head. Patient unable to give details that led to her fall. # S/p fall possible eitiology: orthostatic, severe anemia, hyponatremia fall precautions, PT eval local wound care to the occipital laceration ambulate with assistance # Microcytic Anemia ddx: iron def, thalassemia FOBT negative, no evidence of bleeding, responded to transfusion appropriately stable h&H, improving iron and vit c supplement HFpEF w Pul HTN DM Alzheimer HTN HLD DVT ppx: SCD Discharge planning outpatient f/u with cardiology Visit type - Emergency Visit Emergency Visit: Yes ED Registration Date: 11/24/19 Care time: The patient presented to the Emergency Department on the above date and was hospitalized for further evaluation of their emergent condition. - New Patient This patient is new to me today: No - Critical Care Critical Care patient: No - Discharge Referral Referred to [facility] No - Medication Review Med list reviewed for High Risk Meds patients 65 and older: No (reviewed)
[2019-11-28] MEDS: FERROUS SO4 325 MG TABLET (FP) PO SCH (10:48)
[2019-11-28] MEDS: ASCORBIC ACID 500 MG TABLET (FP) PO SCH (10:48)
[2019-11-28] MEDS: ATORVASTATIN CA 10 MG TABLET (FP) PO SCH (21:47)
[2019-11-28] MEDS: MIRTAZAPINE 15 MG TABLET (FP) PO SCH (21:47)
[2019-11-28] MEDS: DONEPEZIL HCL 10 MG TABLET (FP) PO SCH (21:47)
[2019-11-29] MEDS: INSULIN SLIDING SCALE (NOVOLOG) 1 VIAL SQ SCH ×4 (06:00→21:01)
[2019-11-29 07:49] LABS: BASO % 0.8 % (0-2.0); HEMATOCRIT 28.3 % (32.4-45.2); HEMOGLOBIN 8.3 GM/dL (10.7-15.3); LYMPH % 17.7 % (8-40); MCHC 29.5 g/dl (32.0-36.0); MEAN CELL VOLUME 66.2 fl (80-96); MEAN PLT VOLUME 8.4 fl (7.5-11.1); MONO % 7.2 % (3.8-10.2); NEUT % 71.3 % (42.8-82.8); PLATELET COUNT 344 K/MM3 (134-434); RBC 4.27 M/mm3 (3.60-5.2); RDW 39.6 % (11.6-15.6); WHITE BLOOD COUNT 6.2 K/mm3 (4.0-10.0)
[2019-11-29 07:51] LABS: ALBUMIN 2.4 g/dl (3.4-5.0); BILIRUBIN,TOTAL 0.5 mg/dL (0.2-1); BLOOD UREA NITROGEN 9.8 mg/dL (7-18); CALCIUM 8.3 mg/dL (8.5-10.1); CREATININE 0.5 mg/dL (0.55-1.3); TOT PROT 5.8 g/dl (6.4-8.2)
[2019-11-29 07:56] LABS: MCH 19.5 pg (25.7-33.7)
[2019-11-29] MEDS: FERROUS SO4 325 MG TABLET (FP) PO SCH (09:00)
[2019-11-29] MEDS: ASCORBIC ACID 500 MG TABLET (FP) PO SCH (09:00)
[2019-11-29 09:56] LABS: ANISOCYTOSIS 3+; MACROCYTOSIS 2+; PLATELET ESTIMATE NORMAL
--- NOTE | 2019-11-29 11:03 | PN ---
Physical Exam: SUBJECTIVE: Patient seen and examined, unchanged OBJECTIVE: Vital Signs Period Temp Pulse Resp BP Sys/De Leon Pulse Ox Last 24 Hr 97.9 F-98.7 F 77-84 16-20 104-139/47-73 92-94 GENERAL: Awake, alert, and oriented x2, in no acute distress. HEAD: occipital laceration EYES: Pupils equal, round and reactive to light, sclera anicteric, conjunctiva pale LUNGS: Breath sounds equal, clear to auscultation bilaterally. No wheezes, and no crackles. No accessory muscle use. HEART: Regular rate and rhythm, normal S1 and S2, systolic 3/6 murmur at upper sternal boarder w lt 2nd intercostal ABDOMEN: Soft, nontender, not distended MUSCULOSKELETAL: Normal range of motion at all joints. No bony deformities or tenderness. No CVA tenderness. UPPER EXTREMITIES: 2+ pulses, warm, well-perfused. No cyanosis. No clubbing. No peripheral edema. LOWER EXTREMITIES: 2+ pulses, warm, well-perfused. No calf tenderness. No peripheral edema. NEUROLOGICAL: Cranial nerves II-XII intact. Normal speech. Laboratory Results - last 24 hr 11/29/19 11/29/19 11/29/19 05:34 05:56 05:56 WBC 6.2 RBC 4.27 Hgb 8.3 L Hct 28.3 L MCV 66.2 L MCH 19.5 L MCHC 29.5 L RDW 39.6 H Plt Count 344 MPV 8.4 Absolute Neuts (auto) 4.4 Neutrophils % 71.3 Lymphocytes % 17.7 D Monocytes % 7.2 Eosinophils % 3.0 Basophils % 0.8 Nucleated RBC % 0 Sodium 142 Potassium 4.0 Chloride 107 Carbon Dioxide 27 Anion Gap 8 BUN 9.8 Creatinine 0.5 L Est GFR (CKD-EPI)AfAm 105.94 Est GFR (CKD-EPI)NonAf 91.41 POC Glucometer 106 Random Glucose 106 Calcium 8.3 L Total Bilirubin 0.5 AST 15 ALT 13 Alkaline Phosphatase 130 H Total Protein 5.8 L Albumin 2.4 L Active Medications Generic Name Dose Route Start Last Admin Trade Name Freq PRN Reason Stop Dose Admin Ascorbic Acid 500 mg 11/28/19 10:00 11/29/19 09:00 Vitamin C - PO 500 mg DAILY SUZY Administration Atorvastatin Calcium 10 mg 11/24/19 22:00 11/28/19 21:47 Lipitor - PO 10 mg HS SUZY Administration Donepezil HCl 10 mg 11/24/19 22:00 11/28/19 21:47 Aricept - PO 10 mg HS SUZY Administration Ferrous Sulfate 325 mg 11/27/19 10:00 11/29/19 09:00 Feosol - PO 325 mg DAILY SUZY Administration Insulin Aspart 1 vial 11/24/19 11:00 11/29/19 06:00 Novolog Vial Sliding Scale - SQ Not Given ACHS SUZY Protocol Mirtazapine 15 mg 11/25/19 22:00 11/28/19 21:47 Remeron - PO 15 mg HS SUZY Administration ASSESSMENT/PLAN: 79 year old female with known history of HTN, HLD, DMT2, Dementia who was taken to The ED by daughter after she had been found on the ground, with a laceration on the back of the head. Patient unable to give details that led to her fall. # S/p fall possible eitiology: orthostatic, severe anemia, hyponatremia fall precautions local wound care ambulate with assistance # Microcytic Anemia stable h&H, improving HFpEF w Pul HTN DM Alzheimer HTN HLD DVT ppx: SCD Discharge planning outpatient f/u with cardiology Visit type - Emergency Visit Emergency Visit: Yes ED Registration Date: 11/24/19 Care time: The patient presented to the Emergency Department on the above date and was hospitalized for further evaluation of their emergent condition. - New Patient This patient is new to me today: No - Critical Care Critical Care patient: No - Discharge Referral Referred to [facility] No - Medication Review Med list reviewed for High Risk Meds patients 65 and older: Yes (reviewed)
[2019-11-29] MEDS ORDERED: PT OWN MED DRAWER 7, Y5N ONE (18:13)
[2019-11-29] MEDS ORDERED: INSULIN SLIDING SCALE (NOVOLOG) 1 VIAL SQ ONE (18:13)
[2019-11-29] MEDS: MIRTAZAPINE 15 MG TABLET (FP) PO SCH (21:00)
[2019-11-29] MEDS: ATORVASTATIN CA 10 MG TABLET (FP) PO SCH (21:00)
[2019-11-29] MEDS: DONEPEZIL HCL 10 MG TABLET (FP) PO SCH (21:01)
[2019-11-30] MEDS: INSULIN SLIDING SCALE (NOVOLOG) 1 VIAL SQ SCH ×2 (06:00→11:42)
[2019-11-30 08:59] VITALS: PULSE 76
[2019-11-30] MEDS: FERROUS SO4 325 MG TABLET (FP) PO SCH (09:03)
[2019-11-30] MEDS: ASCORBIC ACID 500 MG TABLET (FP) PO SCH (09:03)
--- NOTE | 2019-11-30 09:14 | PN ---
Teaching Attending Note Name of Resident: Maya Kwok ATTENDING PHYSICIAN STATEMENT I saw and evaluated the patient. I reviewed the resident's note and discussed the case with the resident. I agree with the resident's findings and plan as documented. SUBJECTIVE: denies complains OBJECTIVE: Last Vital Signs Temp Pulse Resp BP Pulse Ox 98.9 F 76 18 133/73 96 11/30/19 08:58 11/30/19 08:58 11/30/19 08:58 11/30/19 08:58 11/30/19 08:59 GENERAL: Awake, alert, and oriented x2, in no acute distress. HEAD: occipital laceration EYES: Pupils equal, round and reactive to light, sclera anicteric, conjunctiva pale LUNGS: Breath sounds equal, clear to auscultation bilaterally. No wheezes, and no crackles. No accessory muscle use. HEART: Regular rate and rhythm, normal S1 and S2, systolic 3/6 murmur at upper sternal boarder w lt 2nd intercostal ABDOMEN: Soft, nontender, not distended MUSCULOSKELETAL: Normal range of motion at all joints. No bony deformities or tenderness. No CVA tenderness. UPPER EXTREMITIES: 2+ pulses, warm, well-perfused. No cyanosis. No clubbing. No peripheral edema. LOWER EXTREMITIES: 2+ pulses, warm, well-perfused. No calf tenderness. No peripheral edema. NEUROLOGICAL: Cranial nerves II-XII intact. Normal speech. CBCD WBC 6.2 K/mm3 (4.0-10.0) 11/29/19 05:56 RBC 4.27 M/mm3 (3.60-5.2) 11/29/19 05:56 Hgb 8.3 GM/dL (10.7-15.3) L 11/29/19 05:56 Hct 28.3 % (32.4-45.2) L 11/29/19 05:56 MCV 66.2 fl (80-96) L 11/29/19 05:56 MCHC 29.5 g/dl (32.0-36.0) L 11/29/19 05:56 RDW 39.6 % (11.6-15.6) H 11/29/19 05:56 Plt Count 344 K/MM3 (134-434) 11/29/19 05:56 MPV 8.4 fl (7.5-11.1) 11/29/19 05:56 CMP Sodium 142 mmol/L (136-145) 11/29/19 05:56 Potassium 4.0 mmol/L (3.5-5.1) 11/29/19 05:56 Chloride 107 mmol/L (98-107) 11/29/19 05:56 Carbon Dioxide 27 mmol/L (21-32) 11/29/19 05:56 Anion Gap 8 MMOL/L (8-16) 11/29/19 05:56 BUN 9.8 mg/dL (7-18) 11/29/19 05:56 Creatinine 0.5 mg/dL (0.55-1.3) L 11/29/19 05:56 Calcium 8.3 mg/dL (8.5-10.1) L 11/29/19 05:56 Total Bilirubin 0.5 mg/dL (0.2-1) 11/29/19 05:56 AST 15 U/L (15-37) 11/29/19 05:56 ALT 13 U/L (13-61) 11/29/19 05:56 Alkaline Phosphatase 130 U/L (45-117) H 11/29/19 05:56 Total Protein 5.8 g/dl (6.4-8.2) L 11/29/19 05:56 Albumin 2.4 g/dl (3.4-5.0) L 11/29/19 05:56 Active Medications Ascorbic Acid (Vitamin C -) 500 mg PO DAILY [facility] Last Admin: 11/30/19 09:03 Dose: 500 mg Documented by: Atorvastatin Calcium (Lipitor -) 10 mg PO [facility] Last Admin: 11/29/19 21:00 Dose: 10 mg Documented by: Donepezil HCl (Aricept -) 10 mg PO [facility] Last Admin: 11/29/19 21:01 Dose: 10 mg Documented by: Ferrous Sulfate (Feosol -) 325 mg PO DAILY [facility] Last Admin: 11/30/19 09:03 Dose: 325 mg Documented by: Insulin Aspart (Novolog Vial Sliding Scale -) 1 vial SQ [facility]; Protocol Last Admin: 11/30/19 06:00 Dose: Not Given Documented by: Mirtazapine (Remeron -) 15 mg PO [facility] Last Admin: 11/29/19 21:00 Dose: 15 mg Documented by: ASSESSMENT AND PLAN: 79 year old female with known history of HTN, HLD, DMT2, Dementia who was taken to The ED by daughter after she had been found on the ground, with a laceration on the back of the head. Patient unable to give details that led to her fall. # S/p fall 2/2 severe iron def anemia fall precautions local wound care stable h&H, improving ambulate with assistance Microcytic Anemia HFpEF w Pul HTN DM Alzheimer HTN HLD DVT ppx: SCD Awaiting Discharge to [facility] outpatient f/u with cardiology, GI
[2019-11-30 15:49] VITALS: BP 131/71; TEMP 98.2
--- NOTE | 2019-11-30 17:25 | PN ---
Physical Exam: SUBJECTIVE: Patient seen and examined OBJECTIVE: Vital Signs Temperature 98.2 F 11/30/19 14:00 Pulse Rate 76 11/30/19 14:00 Respiratory Rate 20 11/30/19 14:00 Blood Pressure 131/71 11/30/19 14:00 O2 Sat by Pulse Oximetry (%) 96 11/30/19 08:59 GENERAL: The patient is awake, alert, and oriented to person only, in no acute distress. HEAD: 3-4 cm laceration of the occipital side of the head x 7 sue NECK: full range of motion, supple. LUNGS: Breath sounds equal, clear to auscultation bilaterally HEART: Regular rate and rhythm, S1, S2 +holosystolic murmur ABDOMEN: Soft, nontender, nondistended, normoactive bowel sounds EXTREMITIES: 2+ pulses, warm, well-perfused, no edema. NEUROLOGICAL: Cranial nerves II through XII grossly intact. Normal speech PSYCH: Normal mood, normal affect. SKIN: Warm, dry, normal turgor Laboratory Results - last 24 hr 11/30/19 11/30/19 05:28 11:41 POC Glucometer 114 109 Active Medications Generic Name Dose Route Start Last Admin Trade Name Freq PRN Reason Stop Dose Admin Ascorbic Acid 500 mg 11/28/19 10:00 11/30/19 09:03 Vitamin C - PO 500 mg DAILY SUZY Administration Atorvastatin Calcium 10 mg 11/24/19 22:00 11/29/19 21:00 Lipitor - PO 10 mg HS SUZY Administration Donepezil HCl 10 mg 11/24/19 22:00 11/29/19 21:01 Aricept - PO 10 mg HS SUZY Administration Ferrous Sulfate 325 mg 11/27/19 10:00 11/30/19 09:03 Feosol - PO 325 mg DAILY SUZY Administration Insulin Aspart 1 vial 11/24/19 11:00 11/30/19 11:42 Novolog Vial Sliding Scale - SQ Not Given ACHS SUZY Protocol Mirtazapine 15 mg 11/25/19 22:00 11/29/19 21:00 Remeron - PO 15 mg HS SUZY Administration ASSESSMENT/PLAN: Patient is an 79 y/o F, pmh of HTN, HLD, DM, Alzhiemers dementia, presents to the ED s/p Fall likely 2/2 to mechanical fall vs syncope. #s/p Fall -possibly 2/2 Mechanical, syncope, orthostatic , anemia, hyponatremia or infection -No LOC or seizure like activities noted -EKG: NSR, TWI in V1,2,3, w/ ST depressions in V3,4, repeat EKG with unchanged -Trop negative x2 -UA positive, LE 3+, bacteria>1000 -Will continue rocephin , pending UCx -Hgb 4.7, received 2u prbc, H/H now stable -Leukocytosis, likely reactive, trending down -Physical therapy -Fall precautions, neurochecks #Microcytic Anemia -likely QUENTIN with iron and ferritin low, r/o bleeding -FOBT negative -IV VEnofer given twill continue with PO iron -monitor H/H #Disposition -Patient's insurance not approved for SNF -Patient walked 220ft with PT, patient will be discharged home with VNS Visit type - Emergency Visit Emergency Visit: Yes ED Registration Date: 11/24/19 Care time: The patient presented to the Emergency Department on the above date and was hospitalized for further evaluation of their emergent condition. - New Patient This patient is new to me today: No - Critical Care Critical Care patient: No - Medication Review Med list reviewed for High Risk Meds patients 65 and older: Yes ATTENDING PHYSICIAN STATEMENT I saw and evaluated the patient. I reviewed the resident's note and discussed the case with the resident. I agree with the resident's findings and plan as documented. SUBJECTIVE: OBJECTIVE: ASSESSMENT AND PLAN:
== END 2019-11-30 17:50 | disposition home health service (06) | DRG 812 ==
LOC: JER 03:43 → JERBED 06:02 → J4S 19:55
PROVIDERS: ADMIT Internal Medicine; ATTEND Student in an Organized Health Care Education/Training Program
PROC: 0HQ0XZZ Repair Scalp Skin, External Approach (ICD-10-PCS; principal; 2019-11-24)
PROC: 30233N1 Transfusion of Nonautologous Red Blood Cells into Peripheral Vein, Percutaneous Approach (ICD-10-PCS; 2019-11-24)
DX: D50.9 Iron deficiency anemia, unspecified (principal); N39.0 Urinary tract infection, site not specified; E87.1 Hypo-osmolality and hyponatremia; I95.1 Orthostatic hypotension; S01.01XA Laceration without foreign body of scalp, initial encounter; E87.6 Hypokalemia; G30.9 Alzheimer's disease, unspecified; R19.7 Diarrhea, unspecified; F02.80 Dementia in other diseases classified elsewhere, unspecified severity, without behavioral disturbance, psychotic disturbance, mood disturbance, and anxiety; E11.9 Type 2 diabetes mellitus without complications; E78.5 Hyperlipidemia, unspecified; I10 Essential (primary) hypertension; E86.1 Hypovolemia; D72.829 Elevated white blood cell count, unspecified; W01.0XXA Fall on same level from slipping, tripping and stumbling without subsequent striking against object, initial encounter; Y92.098 Other place in other non-institutional residence as the place of occurrence of the external cause
CPT/HCPCS: 36415; 36430; 70450-TC; 71045-TC-FY; 72125-TC; 76705-TC; 80048; 80053; 81003; 82272; 82728; 82962; 83010; 83540; 83550; 83615; 83735; 83930; 83935; 84100; 84300; 84443; 84484; 85025; 85027; 85044; 86850; 86900; 86901; 86922; 87040; 87086; 87324; 87449; 93005; 93010; 93306-TC; 97116-GP; 97161-GP; 99285-25; J1756; P9058; U0003

== ENCOUNTER 2019-12-11 08:54 | Emergency (ER) | payer BC, OTHER ==
[2019-12-11 08:59] VITALS: BP 133/76; PULSE 78; TEMP 99.1; BMI 22.3
--- NOTE | 2019-12-11 09:43 | PDOC ---
History of Present Illness - General Chief Complaint: Injury Stated Complaint: SUTURE REMOVAL Time Seen by Provider: 12/11/19 09:34 History Source: Patient Exam Limitations: No Limitations - History of Present Illness Initial Comments: 12/11/19 09:57 79-year-old female presents the ED requesting staple removal. Patient had sue placed status post fall on 11/23. Patient has no complaints and no symptoms at this time. Pt otherwise denies: fevers, chills, syncope, lightheadedness, dizziness, headaches, neck pain, chest pain, shortness of breath, palpitations, back pain, abdominal pain, nausea, vomiting, diarrhea, constipation. 12/11/19 09:59 Past History - Medical History Allergies/Adverse Reactions: Allergies Allergy/AdvReac Type Severity Reaction Status Date / Time No Known Allergies Allergy Verified 11/24/19 04:03 Home Medications: Ambulatory Orders Cholecalciferol (Vitamin D3) [Vitamin D -] 500,000 unit PO WEEKLY 12/14/16 Mirtazapine [Remeron -] 15 mg PO DAILY 12/14/16 Sertraline HCl [Zoloft] 50 mg PO DAILY 12/14/16 Nicotine Patch [Nicoderm Patch -] 14 mg TD DAILY #30 patch 12/17/16 Alendronate Sodium [Fosamax] 1 tab WEEKLY 11/24/19 Donepezil HCl [Aricept] 10 mg PO DAILY 11/24/19 Lisinopril 5 mg PO DAILY 11/24/19 Metformin HCl [Glucophage] 500 mg PO DAILY 11/24/19 Simvastatin 40 mg PO HS 11/24/19 Ferrous Sulfate [Feosol] 325 mg PO DAILY ud 11/26/19 Anemia: Yes COPD: No Dementia: Yes Diabetes: Yes (type II) HTN: Yes Hypercholesterolemia: Yes - Surgical History Cholecystectomy: Yes - Immunization History Immunization Up to Date: Yes - Psycho-Social/Smoking History Smoking History: Former smoker Have you smoked in the past 12 months: No Number of Cigarettes Smoked Daily: 6 If you are a former smoker, when did you quit?: 2016 Information on smoking cessation initiated: No 'Breaking Loose' booklet given: 11/24/19 - Substance Abuse Hx (Audit-C & DAST Scrn) How often the patient has a drink containing alcohol: Never Score: In Men: 4 or > Positive; In Women: 3 or > Positive: 0 Screen Result (Pos requires Nsg. Audit-10AR): Negative In the last yr the pt used illegal drug/Rx for NonMed reason: No Score: Yes response is considered Positive: 0 Screen Result (Positive result requires Nsg. DAST-10): Negative *Physical Exam - Vital Signs Last Vital Signs Temp Pulse Resp BP Pulse Ox 99.1 F 78 16 133/76 99 12/11/19 08:54 12/11/19 08:54 12/11/19 08:54 12/11/19 08:54 12/11/19 08:54 - Physical Exam 12/11/19 09:59 Gen: AAOx 3, no acute distress, comfortable, no signs of respiratory distress HENT: normocephalic well healing laceration to posterior left occipital region w/ [address]; Nasal mucosa without erythema. Oropharynx without erythema or exudates. Mucous membranes moist. EYES: PERRL, EOM intact, conjunctiva pink NECK: supple; trachea midline; no JVD, no lymphadenopathy, or thyromegaly CV: RRR no murmurs, gallops, or rubs. CHEST: CTA b/l no wheezing, rales or rhonchi ABD: +BS/ND. no TTP; soft, no rebound, no guarding EXTREMITY: no cyanosis or erythema. 2+ dorsalis pedis, posterior tibial, and radial pulse. No pedal edema; no calf swelling or tenderness SKIN: no rash, warm and dry, no diaphoresis HEME: no purpura or ecchymosis NEURO: normal speech, CN II-XII intact, sensation intact, normal gait, no cerebellar deficits MS: 5/5 strength in all extremities, FROM intact in all extremities. Medical Decision Making - Medical Decision Making 12/11/19 10:00 79-year-old female presenting for staple removal Vital signs stable 7 sue removed without complication Patient appears well safe or stable for discharge Supportive care instructions explained and given to pt. Reasons to return emergently to ER explained and given. Importance of follow up with PMD and other specialists as indicated stressed to pt. Pt verbalized understanding of instructions. Pt to follow up with PMD in 2 days. Discharge - Discharge Information Problems reviewed: Yes Clinical Impression/Diagnosis: Removal of sue Condition: Stable Disposition: HOME - Follow up/Referral - Patient Discharge Instructions Patient Printed Discharge Instructions: DI for Suture Removal - Post Discharge Activity
== END 2019-12-11 09:45 | disposition home or self-care (01) ==
LOC: JER 08:54
DX: Z48.02 Encounter for removal of sutures (principal)
CPT/HCPCS: 99281-25

== ENCOUNTER 2022-01-20 15:29 | Inpatient (IN) | payer BC, OTHER ==
[2022-01-20 17:40] LABS: HEMATOCRIT 17.3 % (32.4-45.2); LYMPH % 16.5 % (8-40); MCHC 24.2 g/dl (32.0-36.0); MEAN CELL VOLUME 53.9 fl (80-96); MEAN PLT VOLUME 8.2 fl (7.5-11.1); MONO % 7.7 % (3.8-10.2); NEUT % 72.8 % (42.8-82.8); PLATELET COUNT 344 10^3/uL (134-434); RBC 3.22 M/mm3 (3.60-5.2); RDW 23.5 % (11.6-15.6); WHITE BLOOD COUNT 5.4 K/mm3 (4.0-10.0)
[2022-01-20 17:44] LABS: HEMOGLOBIN 4.2 GM/dL (10.7-15.3); INR 1.16 (0.83-1.09); PROTHROMBIN TIME (PATIENT) 13.4 SEC (9.7-13.0)
[2022-01-20 17:46] LABS: ACTIVATED PTT 27.3 SECONDS (25.2-36.5)
[2022-01-20 17:57] LABS: CALCIUM 8.4 mg/dL (8.5-10.1)
[2022-01-20 17:58] LABS: ALBUMIN 2.8 g/dl (3.4-5.0); BLOOD UREA NITROGEN 6.6 mg/dL (7-18)
[2022-01-20 18:00] LABS: CREATININE 0.5 mg/dL (0.55-1.3)
[2022-01-20 18:02] LABS: BILIRUBIN,TOTAL 0.3 mg/dL (0.2-1)
[2022-01-20 18:03] LABS: TOT PROT 6.6 g/dl (6.4-8.2)
[2022-01-20 18:16] LABS: ANISOCYTOSIS 3+; MACROCYTOSIS 0; OVALOCYTE 1+; TARGET CELLS 2+
[2022-01-20 18:30] LABS: LACTIC ACID 2.3 mmol/L (0.4-2.0)
[2022-01-20 19:52] LABS: PH,URINE 6.5 (5.0-8.0); URINE APPEARANCE CLEAR; URINE BILIRUBIN NEGATIVE (NEGATIVE); URINE COLOR YELLOW; URINE GLUCOSE (UA) NEGATIVE (NEGATIVE); URINE KETONE NEGATIVE (NEGATIVE); URINE LEUK ESTERASE TRACE (NEGATIVE); URINE NITRITE NEGATIVE (NEGATIVE); URINE PROTEIN NEGATIVE (NEGATIVE); URINE UROBILINOGEN 0.2 mg/dL (0.2-1.0)
[2022-01-21 03:14] LABS: BASO % 0.8 % (0-2.0); EOS % 1.3 % (0-4.5); HEMATOCRIT 27.6 % (32.4-45.2); MCHC 29.1 g/dl (32.0-36.0); MEAN CELL VOLUME 64.6 fl (80-96); MEAN PLT VOLUME 8.2 fl (7.5-11.1); MONO % 5.6 % (3.8-10.2); NEUT % 79.3 % (42.8-82.8); PLATELET COUNT 263 10^3/uL (134-434); RBC 4.27 M/mm3 (3.60-5.2); RDW 40.7 % (11.6-15.6); WHITE BLOOD COUNT 6.2 K/mm3 (4.0-10.0)
[2022-01-21 03:17] LABS: MCH 18.8 pg (25.7-33.7)
[2022-01-21] MEDS: MIRTAZAPINE 15 MG TABLET (FP) PO SCH ×2 (06:51→22:12)
[2022-01-21] MEDS: INSULIN SLIDING SCALE (NOVOLOG) 1 VIAL SQ SCH ×4 (06:52→22:13)
[2022-01-21 09:02] LABS: BLOOD UREA NITROGEN 3.7 mg/dL (7-18)
[2022-01-21 09:04] LABS: ALBUMIN 2.7 g/dl (3.4-5.0); CALCIUM 8.1 mg/dL (8.5-10.1); MAGNESIUM 1.7 mg/dL (1.8-2.4)
[2022-01-21 09:06] LABS: CREATININE 0.4 mg/dL (0.55-1.3); PHOSPHOROUS 2.8 mg/dL (2.5-4.9)
[2022-01-21 09:09] LABS: BILIRUBIN,TOTAL 2.3 mg/dL (0.2-1); TOT PROT 5.9 g/dl (6.4-8.2)
[2022-01-21 10:37] LABS: BASO % 0.6 % (0-2.0); EOS % 1.6 % (0-4.5); HEMATOCRIT 26.2 % (32.4-45.2); HEMOGLOBIN 7.7 GM/dL (10.7-15.3); LYMPH % 12.9 % (8-40); MCHC 29.5 g/dl (32.0-36.0); MEAN PLT VOLUME 8.4 fl (7.5-11.1); MONO % 5.3 % (3.8-10.2); NEUT % 79.6 % (42.8-82.8); PLATELET COUNT 282 10^3/uL (134-434); RDW 39.2 % (11.6-15.6); WHITE BLOOD COUNT 5.8 K/mm3 (4.0-10.0)
[2022-01-21 10:41] LABS: MCH 18.9 pg (25.7-33.7)
[2022-01-21] MEDS: PANTOPRAZOLE SODIUM 40 MG VIAL IVPUSH SCH ×2 (10:51→22:13)
[2022-01-21] MEDS ORDERED: MAGNESIUM SULF 50% (8.12 MEQ/2 ML-1 GM VIAL) IVPB ONE (16:35)
[2022-01-21] MEDS: ACETAMINOPHEN 1000 MG/100 ML BAG IVPB PRN (18:50)
[2022-01-21] MEDS: DONEPEZIL HCL 5 MG TABLET (FP) PO SCH (22:12)
[2022-01-21] MEDS: ATORVASTATIN CA 20 MG TABLET (FP) PO SCH (22:12)
[2022-01-21 22:19] LABS: EPI CELLS 6 /uL (0-25.1); HYALINE CASTS 2 /uL (0-3.1); URINE BACTERIA 39 /uL (0-1359); URINE RBC 16 /uL (0-23.9); URINE WBC 17 /uL (0-25.8)
[2022-01-22] MEDS: INSULIN SLIDING SCALE (NOVOLOG) 1 VIAL SQ SCH ×4 (06:47→22:38)
[2022-01-22 08:24] LABS: CALCIUM 8.5 mg/dL (8.5-10.1)
[2022-01-22 08:25] LABS: ALBUMIN 2.8 g/dl (3.4-5.0); BLOOD UREA NITROGEN 4.3 mg/dL (7-18); MAGNESIUM 2.4 mg/dL (1.8-2.4)
[2022-01-22 08:28] LABS: CREATININE 0.4 mg/dL (0.55-1.3); PHOSPHOROUS 3.8 mg/dL (2.5-4.9)
[2022-01-22 08:29] LABS: BILIRUBIN,TOTAL 1.2 mg/dL (0.2-1); TOT PROT 6.1 g/dl (6.4-8.2)
[2022-01-22 09:44] LABS: BASO % 0.6 % (0-2.0); EOS % 1.3 % (0-4.5); HEMATOCRIT 30.3 % (32.4-45.2); HEMOGLOBIN 8.6 GM/dL (10.7-15.3); LYMPH % 5.3 % (8-40); MCHC 28.4 g/dl (32.0-36.0); MEAN CELL VOLUME 65.3 fl (80-96); MEAN PLT VOLUME 8.4 fl (7.5-11.1); MONO % 4.6 % (3.8-10.2); NEUT % 88.2 % (42.8-82.8); PLATELET COUNT 291 10^3/uL (134-434); RBC 4.64 M/mm3 (3.60-5.2); RDW 39.6 % (11.6-15.6); WHITE BLOOD COUNT 9.4 K/mm3 (4.0-10.0)
[2022-01-22 09:51] LABS: MCH 18.6 pg (25.7-33.7)
[2022-01-22] MEDS: PANTOPRAZOLE SODIUM 40 MG VIAL IVPUSH SCH ×2 (10:10→22:37)
[2022-01-22] MEDS: ACETAMINOPHEN 1000 MG/100 ML BAG IVPB PRN (16:00)
[2022-01-22] MEDS: MIRTAZAPINE 15 MG TABLET (FP) PO SCH (22:37)
[2022-01-22] MEDS: ATORVASTATIN CA 20 MG TABLET (FP) PO SCH (22:37)
[2022-01-22] MEDS: DONEPEZIL HCL 5 MG TABLET (FP) PO SCH (22:37)
[2022-01-23] MEDS: INSULIN SLIDING SCALE (NOVOLOG) 1 VIAL SQ SCH ×4 (06:37→22:16)
[2022-01-23 07:54] LABS: BLOOD UREA NITROGEN 8.2 mg/dL (7-18); CALCIUM 8.3 mg/dL (8.5-10.1)
[2022-01-23 07:55] LABS: ALBUMIN 2.6 g/dl (3.4-5.0); MAGNESIUM 2.2 mg/dL (1.8-2.4)
[2022-01-23 07:57] LABS: PHOSPHOROUS 4.2 mg/dL (2.5-4.9)
[2022-01-23 07:58] LABS: CREATININE 0.5 mg/dL (0.55-1.3)
[2022-01-23 07:59] LABS: TOT PROT 5.9 g/dl (6.4-8.2)
[2022-01-23 09:03] LABS: HEMATOCRIT 30.7 % (32.4-45.2); HEMOGLOBIN 8.4 GM/dL (10.7-15.3); MCHC 27.4 g/dl (32.0-36.0); MEAN CELL VOLUME 66.5 fl (80-96); MEAN PLT VOLUME 8.3 fl (7.5-11.1); PLATELET COUNT 269 10^3/uL (134-434); RBC 4.62 M/mm3 (3.60-5.2); RDW 41.5 % (11.6-15.6); WHITE BLOOD COUNT 7.8 K/mm3 (4.0-10.0)
[2022-01-23 09:10] LABS: MCH 18.2 pg (25.7-33.7)
[2022-01-23] MEDS: PANTOPRAZOLE SODIUM 40 MG VIAL IVPUSH SCH ×2 (09:31→21:32)
[2022-01-23] MEDS ORDERED: MAGNESIUM CITRATE 300 ML BOTTLE PO ONE ×3 (13:33→22:00)
[2022-01-23] MEDS ORDERED: BISACODYL 5 MG TABLET.DR (FP) PO ONE (13:34)
[2022-01-23] MEDS: MIRTAZAPINE 15 MG TABLET (FP) PO SCH (21:32)
[2022-01-23] MEDS: ATORVASTATIN CA 20 MG TABLET (FP) PO SCH (21:32)
[2022-01-23] MEDS: DONEPEZIL HCL 5 MG TABLET (FP) PO SCH (21:32)
[2022-01-24] MEDS ORDERED: SODIUM PHOSPHATE/NA BIPHOS 133 ML ENEMA RC ONE (02:00)
[2022-01-24] MEDS: INSULIN SLIDING SCALE (NOVOLOG) 1 VIAL SQ SCH ×4 (06:07→21:30)
[2022-01-24 08:01] LABS: CALCIUM 8.9 mg/dL (8.5-10.1)
[2022-01-24 08:02] LABS: ALBUMIN 2.7 g/dl (3.4-5.0); BLOOD UREA NITROGEN 6.7 mg/dL (7-18)
[2022-01-24 08:05] LABS: CREATININE 0.4 mg/dL (0.55-1.3)
[2022-01-24 08:06] LABS: BILIRUBIN,TOTAL 0.7 mg/dL (0.2-1); TOT PROT 6.3 g/dl (6.4-8.2)
[2022-01-24 08:50] LABS: HEMATOCRIT 31.2 % (32.4-45.2); HEMOGLOBIN 9.1 GM/dL (10.7-15.3); MCH 19.9 pg (25.7-33.7); MEAN CELL VOLUME 68.5 fl (80-96); MEAN PLT VOLUME 8.2 fl (7.5-11.1); PLATELET COUNT 249 10^3/uL (134-434); RBC 4.56 M/mm3 (3.60-5.2); RDW 42.3 % (11.6-15.6); WHITE BLOOD COUNT 5.3 K/mm3 (4.0-10.0)
[2022-01-24] MEDS: PANTOPRAZOLE SODIUM 40 MG VIAL IVPUSH SCH ×2 (10:23→21:24)
[2022-01-24] MEDS ORDERED: POLYETHYLENE GLYCOL (HEALTHYLAX) 3350 17 GM PACKET PO ONE (14:00)
[2022-01-24] MEDS: FERROUS SO4 325 MG TABLET (FP) PO SCH (17:46)
[2022-01-24] MEDS: ATORVASTATIN CA 20 MG TABLET (FP) PO SCH (21:23)
[2022-01-24] MEDS: DONEPEZIL HCL 5 MG TABLET (FP) PO SCH (21:24)
[2022-01-24] MEDS: MIRTAZAPINE 15 MG TABLET (FP) PO SCH (21:24)
[2022-01-25] MEDS: INSULIN SLIDING SCALE (NOVOLOG) 1 VIAL SQ SCH ×4 (07:08→23:40)
[2022-01-25] MEDS: PANTOPRAZOLE SODIUM 40 MG VIAL IVPUSH SCH ×2 (09:43→23:41)
[2022-01-25] MEDS: FERROUS SO4 325 MG TABLET (FP) PO SCH ×3 (09:43→17:54)
[2022-01-25] MEDS: ASCORBIC ACID 500 MG TABLET (FP) PO SCH (09:53)
[2022-01-25] MEDS: FOLIC ACID 1 MG TABLET (FP) PO SCH (09:53)
[2022-01-25 12:53] LABS: CALCIUM 8.9 mg/dL (8.5-10.1)
[2022-01-25 12:54] LABS: ALBUMIN 2.6 g/dl (3.4-5.0)
[2022-01-25 12:57] LABS: CREATININE 0.5 mg/dL (0.55-1.3)
[2022-01-25 12:58] LABS: BILIRUBIN,TOTAL 0.8 mg/dL (0.2-1); TOT PROT 5.9 g/dl (6.4-8.2)
[2022-01-25 13:02] LABS: HEMATOCRIT 30.4 % (32.4-45.2); HEMOGLOBIN 8.5 GM/dL (10.7-15.3); MCHC 27.9 g/dl (32.0-36.0); MEAN CELL VOLUME 66.8 fl (80-96); MEAN PLT VOLUME 8.5 fl (7.5-11.1); PLATELET COUNT 217 10^3/uL (134-434); RBC 4.55 M/mm3 (3.60-5.2); RDW 42.8 % (11.6-15.6)
[2022-01-25 13:08] LABS: MCH 18.7 pg (25.7-33.7)
[2022-01-25] MEDS: ATORVASTATIN CA 20 MG TABLET (FP) PO SCH (23:40)
[2022-01-25] MEDS: DONEPEZIL HCL 5 MG TABLET (FP) PO SCH (23:40)
[2022-01-25] MEDS: MIRTAZAPINE 15 MG TABLET (FP) PO SCH (23:41)
[2022-01-26] MEDS: INSULIN SLIDING SCALE (NOVOLOG) 1 VIAL SQ SCH ×2 (06:49→11:32)
[2022-01-26 10:08] LABS: HEMATOCRIT 29.2 % (32.4-45.2); HEMOGLOBIN 8.6 GM/dL (10.7-15.3); MCHC 29.5 g/dl (32.0-36.0); MEAN CELL VOLUME 66.9 fl (80-96); MEAN PLT VOLUME 8.6 fl (7.5-11.1); PLATELET COUNT 213 10^3/uL (134-434); RBC 4.36 M/mm3 (3.60-5.2); RDW 42.5 % (11.6-15.6); WHITE BLOOD COUNT 5.8 K/mm3 (4.0-10.0)
[2022-01-26 10:29] LABS: MCH 19.7 pg (25.7-33.7)
[2022-01-26 10:34] LABS: BLOOD UREA NITROGEN 18.8 mg/dL (7-18); MAGNESIUM 1.6 mg/dL (1.8-2.4)
[2022-01-26 10:37] LABS: CALCIUM 8.7 mg/dL (8.5-10.1); CREATININE 0.8 mg/dL (0.55-1.3)
[2022-01-26] MEDS: ASCORBIC ACID 500 MG TABLET (FP) PO SCH (11:29)
[2022-01-26] MEDS: FOLIC ACID 1 MG TABLET (FP) PO SCH (11:29)
[2022-01-26] MEDS: FERROUS SO4 325 MG TABLET (FP) PO SCH ×3 (11:29→18:46)
[2022-01-26] MEDS: PANTOPRAZOLE SODIUM 40 MG VIAL IVPUSH SCH ×2 (11:29→22:15)
[2022-01-26] MEDS: POLYETHYLENE GLYCOL (HEALTHYLAX) 3350 17 GM PACKET PO SCH (11:29)
[2022-01-26] MEDS ORDERED: MAGNESIUM SULF 50% (8.12 MEQ/2 ML-1 GM VIAL) IVPB ONE (14:47)
[2022-01-26] MEDS: MIRTAZAPINE 15 MG TABLET (FP) PO SCH (22:15)
[2022-01-26] MEDS: ATORVASTATIN CA 20 MG TABLET (FP) PO SCH (22:15)
[2022-01-26] MEDS: DONEPEZIL HCL 5 MG TABLET (FP) PO SCH (22:15)
[2022-01-27] MEDS: POLYETHYLENE GLYCOL (HEALTHYLAX) 3350 17 GM PACKET PO SCH (09:48)
[2022-01-27] MEDS: FOLIC ACID 1 MG TABLET (FP) PO SCH (09:48)
[2022-01-27] MEDS: FERROUS SO4 325 MG TABLET (FP) PO SCH ×3 (09:48→18:03)
[2022-01-27] MEDS: ASCORBIC ACID 500 MG TABLET (FP) PO SCH (09:48)
[2022-01-27] MEDS: PANTOPRAZOLE SODIUM 40 MG VIAL IVPUSH SCH ×2 (09:49→22:05)
[2022-01-27 09:56] LABS: HEMOGLOBIN 8.8 GM/dL (10.7-15.3); MCHC 28.3 g/dl (32.0-36.0); MEAN CELL VOLUME 67.1 fl (80-96); MEAN PLT VOLUME 8.5 fl (7.5-11.1); PLATELET COUNT 249 10^3/uL (134-434); RBC 4.62 M/mm3 (3.60-5.2); RDW 42.8 % (11.6-15.6); WHITE BLOOD COUNT 5.8 K/mm3 (4.0-10.0)
[2022-01-27 10:13] LABS: CALCIUM 8.6 mg/dL (8.5-10.1)
[2022-01-27 10:14] LABS: ALBUMIN 2.7 g/dl (3.4-5.0); BLOOD UREA NITROGEN 14.4 mg/dL (7-18); MAGNESIUM 2.1 mg/dL (1.8-2.4)
[2022-01-27 10:17] LABS: CREATININE 0.4 mg/dL (0.55-1.3)
[2022-01-27 10:18] LABS: BILIRUBIN,TOTAL 0.4 mg/dL (0.2-1); TOT PROT 6.4 g/dl (6.4-8.2)
[2022-01-27 14:55] VITALS: BMI 15.9
[2022-01-27] MEDS ORDERED: CEFTRIAXONE 1 GM in DEXTROSE 5%-WATER - 50 ML IVPB ONE (16:53)
[2022-01-27] MEDS: SODIUM CHLORIDE 1,000 ML IV SCH (18:02)
[2022-01-27] MEDS: ATORVASTATIN CA 20 MG TABLET (FP) PO SCH (22:04)
[2022-01-27] MEDS: MIRTAZAPINE 15 MG TABLET (FP) PO SCH (22:04)
[2022-01-27] MEDS: DONEPEZIL HCL 5 MG TABLET (FP) PO SCH (22:05)
[2022-01-28] MEDS: FERROUS SO4 325 MG TABLET (FP) PO SCH ×3 (09:53→17:20)
[2022-01-28] MEDS: FOLIC ACID 1 MG TABLET (FP) PO SCH ×2 (09:53→10:00)
[2022-01-28] MEDS: POLYETHYLENE GLYCOL (HEALTHYLAX) 3350 17 GM PACKET PO SCH (09:53)
[2022-01-28] MEDS: PANTOPRAZOLE SODIUM 40 MG VIAL IVPUSH SCH ×2 (09:53→22:07)
[2022-01-28] MEDS: ASCORBIC ACID 500 MG TABLET (FP) PO SCH (09:53)
[2022-01-28 10:42] LABS: EOS % 3.9 % (0-4.5); HEMATOCRIT 29.2 % (32.4-45.2); HEMOGLOBIN 8.4 GM/dL (10.7-15.3); LYMPH % 16.3 % (8-40); MCHC 28.7 g/dl (32.0-36.0); MEAN CELL VOLUME 67.9 fl (80-96); MEAN PLT VOLUME 8.4 fl (7.5-11.1); MONO % 5.1 % (3.8-10.2); NEUT % 73.7 % (42.8-82.8); PLATELET COUNT 238 10^3/uL (134-434); RDW 42.4 % (11.6-15.6); WHITE BLOOD COUNT 5.7 K/mm3 (4.0-10.0)
[2022-01-28 10:43] LABS: MCH 19.5 pg (25.7-33.7)
[2022-01-28 11:03] LABS: CALCIUM 8.7 mg/dL (8.5-10.1)
[2022-01-28 11:04] LABS: ALBUMIN 2.6 g/dl (3.4-5.0); BLOOD UREA NITROGEN 16.8 mg/dL (7-18); MAGNESIUM 1.7 mg/dL (1.8-2.4)
[2022-01-28 11:05] LABS: PHOSPHOROUS 4.1 mg/dL (2.5-4.9)
[2022-01-28 11:06] LABS: BILIRUBIN,TOTAL 0.3 mg/dL (0.2-1); TOT PROT 6.1 g/dl (6.4-8.2)
[2022-01-28 11:07] LABS: CREATININE 0.5 mg/dL (0.55-1.3)
[2022-01-28 11:22] LABS: ANISOCYTOSIS 3+; MACROCYTOSIS 0; PLATELET ESTIMATE NORMAL
[2022-01-28] MEDS: SODIUM CHLORIDE 1,000 ML IV SCH (17:20)
[2022-01-28] MEDS: ATORVASTATIN CA 20 MG TABLET (FP) PO SCH (22:06)
[2022-01-28] MEDS: MIRTAZAPINE 15 MG TABLET (FP) PO SCH (22:06)
[2022-01-28] MEDS: DONEPEZIL HCL 5 MG TABLET (FP) PO SCH (22:07)
[2022-01-29] MEDS: PANTOPRAZOLE SODIUM 40 MG VIAL IVPUSH SCH ×3 (08:54→21:39)
[2022-01-29] MEDS: POLYETHYLENE GLYCOL (HEALTHYLAX) 3350 17 GM PACKET PO SCH ×3 (08:54→09:02)
[2022-01-29] MEDS: FERROUS SO4 325 MG TABLET (FP) PO SCH ×3 (08:54→17:05)
[2022-01-29] MEDS: FOLIC ACID 1 MG TABLET (FP) PO SCH ×2 (08:55→09:01)
[2022-01-29] MEDS: ASCORBIC ACID 500 MG TABLET (FP) PO SCH ×2 (08:55→09:01)
[2022-01-29 10:28] LABS: BASO % 1.8 % (0-2.0); EOS % 4.9 % (0-4.5); HEMATOCRIT 29.1 % (32.4-45.2); HEMOGLOBIN 8.5 GM/dL (10.7-15.3); LYMPH % 20.2 % (8-40); MCH 20.5 pg (25.7-33.7); MCHC 29.2 g/dl (32.0-36.0); MEAN CELL VOLUME 70.2 fl (80-96); MEAN PLT VOLUME 8.5 fl (7.5-11.1); MONO % 6.1 % (3.8-10.2); PLATELET COUNT 222 10^3/uL (134-434); RBC 4.14 M/mm3 (3.60-5.2); RDW 42.4 % (11.6-15.6); WHITE BLOOD COUNT 4.2 K/mm3 (4.0-10.0)
[2022-01-29 11:05] LABS: BLOOD UREA NITROGEN 12.8 mg/dL (7-18); CALCIUM 8.6 mg/dL (8.5-10.1); MAGNESIUM 1.6 mg/dL (1.8-2.4)
[2022-01-29 11:06] LABS: ALBUMIN 2.5 g/dl (3.4-5.0)
[2022-01-29 11:08] LABS: PHOSPHOROUS 3.6 mg/dL (2.5-4.9)
[2022-01-29 11:09] LABS: CREATININE 0.5 mg/dL (0.55-1.3)
[2022-01-29 11:10] LABS: BILIRUBIN,TOTAL 0.3 mg/dL (0.2-1); TOT PROT 5.9 g/dl (6.4-8.2)
[2022-01-29] MEDS: SODIUM CHLORIDE 1,000 ML IV SCH (17:06)
[2022-01-29 18:27] VITALS: RESP 18
[2022-01-29] MEDS: DONEPEZIL HCL 5 MG TABLET (FP) PO SCH (21:38)
[2022-01-29] MEDS: MIRTAZAPINE 15 MG TABLET (FP) PO SCH (21:39)
[2022-01-29] MEDS: ATORVASTATIN CA 20 MG TABLET (FP) PO SCH (21:39)
[2022-01-29] MEDS ORDERED: MAGNESIUM OXIDE 400 MG TABLET (FP) PO ONE (22:02)
[2022-01-30] MEDS: FERROUS SO4 325 MG TABLET (FP) PO SCH ×2 (08:48→11:51)
[2022-01-30] MEDS: FOLIC ACID 1 MG TABLET (FP) PO SCH (09:59)
[2022-01-30] MEDS: ASCORBIC ACID 500 MG TABLET (FP) PO SCH (09:59)
[2022-01-30] MEDS: POLYETHYLENE GLYCOL (HEALTHYLAX) 3350 17 GM PACKET PO SCH (09:59)
[2022-01-30] MEDS: PANTOPRAZOLE SODIUM 40 MG VIAL IVPUSH SCH (09:59)
[2022-01-30 12:23] LABS: HEMATOCRIT 32.5 % (32.4-45.2); HEMOGLOBIN 9.1 GM/dL (10.7-15.3); MCHC 28.1 g/dl (32.0-36.0); MEAN CELL VOLUME 70.3 fl (80-96); MEAN PLT VOLUME 8.8 fl (7.5-11.1); PLATELET COUNT 268 10^3/uL (134-434); RBC 4.63 M/mm3 (3.60-5.2); RDW 42.2 % (11.6-15.6); WHITE BLOOD COUNT 5.7 K/mm3 (4.0-10.0)
[2022-01-30 12:25] LABS: MCH 19.8 pg (25.7-33.7)
[2022-01-30 13:19] LABS: ALBUMIN 2.6 g/dl (3.4-5.0)
[2022-01-30 13:20] LABS: BLOOD UREA NITROGEN 10.7 mg/dL (7-18); MAGNESIUM 1.7 mg/dL (1.8-2.4)
[2022-01-30 13:21] LABS: CREATININE 0.4 mg/dL (0.55-1.3)
[2022-01-30 13:23] LABS: BILIRUBIN,TOTAL 0.3 mg/dL (0.2-1); TOT PROT 5.9 g/dl (6.4-8.2)
[2022-01-30 15:33] VITALS: BP 109/64; PULSE 74; TEMP 98.5
== END 2022-01-30 15:35 | disposition home or self-care (01) | DRG 377 ==
LOC: JER 15:29 → JERBED 18:29 → J4W 01-21 02:13 → J5S 01-24 21:53
PROVIDERS: ADMIT Internal Medicine; ATTEND Internal Medicine
PROC: 30233N1 Transfusion of Nonautologous Red Blood Cells into Peripheral Vein, Percutaneous Approach (ICD-10-PCS; principal; 2022-01-20)
PROC: 0DB68ZX Excision of Stomach, Via Natural or Artificial Opening Endoscopic, Diagnostic (ICD-10-PCS; 2022-01-24)
PROC: 0DJD8ZZ Inspection of Lower Intestinal Tract, Via Natural or Artificial Opening Endoscopic (ICD-10-PCS; 2022-01-24)
DX: K92.2 Gastrointestinal hemorrhage, unspecified (principal); E43 Unspecified severe protein-calorie malnutrition; D62 Acute posthemorrhagic anemia; N39.0 Urinary tract infection, site not specified; E87.2 Acidosis; Z68.1 Body mass index [BMI] 19.9 or less, adult; K55.8 Other vascular disorders of intestine; G30.9 Alzheimer's disease, unspecified; F02.80 Dementia in other diseases classified elsewhere, unspecified severity, without behavioral disturbance, psychotic disturbance, mood disturbance, and anxiety; E11.9 Type 2 diabetes mellitus without complications; I10 Essential (primary) hypertension; E78.5 Hyperlipidemia, unspecified; D64.9 Anemia, unspecified; F32.A Depression, unspecified; K57.10 Diverticulosis of small intestine without perforation or abscess without bleeding; K29.60 Other gastritis without bleeding; K57.30 Diverticulosis of large intestine without perforation or abscess without bleeding
CPT/HCPCS: 0241U-QW; 36415; 36430; 71250-TC; 74177-TC; 80048; 80053; 81003; 82272; 82962; 83605; 83615; 83735; 84100; 84443; 84484; 85025; 85027; 85610; 85730; 86850; 86900; 86901; 86922; 87086; 88305-TC; 93005; 93010; 97116-GP; 97162-GP; 99285-25; P9058; Q9967

== ENCOUNTER 2023-01-16 14:14 | Inpatient (IN) | payer BC, OTHER ==
[2023-01-16 17:39] LABS: BASO % 0.9 % (0-2.0); EOS % 3.4 % (0-4.5); HEMATOCRIT 34.9 % (32.4-45.2); HEMOGLOBIN 11.3 GM/dL (10.7-15.3); MCH 25.2 pg (25.7-33.7); MCHC 32.4 g/dl (32.0-36.0); MEAN CELL VOLUME 77.9 fl (80-96); MEAN PLT VOLUME 7.8 fl (7.5-11.1); MONO % 6.1 % (3.8-10.2); NEUT % 74.6 % (42.8-82.8); PLATELET COUNT 289 10^3/uL (134-434); RBC 4.48 M/mm3 (3.60-5.2); RDW 16.1 % (11.6-15.6); WHITE BLOOD COUNT 7.5 K/mm3 (4.0-10.0)
[2023-01-16 17:54] LABS: POTASSIUM 4.1 mmol/L (3.5-5.1)
[2023-01-16 17:55] LABS: ALBUMIN 2.7 g/dl (3.4-5.0)
[2023-01-16 17:56] LABS: CALCIUM 8.5 mg/dL (8.5-10.1); MAGNESIUM 1.7 mg/dL (1.8-2.4)
[2023-01-16 17:59] LABS: CREATININE 0.6 mg/dL (0.55-1.3)
[2023-01-16 18:00] LABS: PHOSPHOROUS 3.5 mg/dL (2.5-4.9)
[2023-01-16 18:01] LABS: BILIRUBIN,TOTAL 0.2 mg/dL (0.2-1); TOT PROT 6.7 g/dl (6.4-8.2)
[2023-01-16] MEDS ORDERED: MAGNESIUM SULF 50% (8.12 MEQ/2 ML-1 GM VIAL) IVPB ONE (18:03)
[2023-01-16] MEDS ORDERED: MAGNESIUM 1GM/D5W - 1 GM/100 ML IVPB IVPB ONE (18:30)
[2023-01-16 19:33] LABS: POTASSIUM 3.7 mmol/L (3.5-5.1)
[2023-01-16 19:36] LABS: CALCIUM 8.4 mg/dL (8.5-10.1)
[2023-01-16 19:37] LABS: ALBUMIN 2.8 g/dl (3.4-5.0); BLOOD UREA NITROGEN 10.5 mg/dL (7-18)
[2023-01-16 19:40] LABS: CREATININE 0.7 mg/dL (0.55-1.3)
[2023-01-16 19:41] LABS: BILIRUBIN,TOTAL 0.3 mg/dL (0.2-1); TOT PROT 6.5 g/dl (6.4-8.2)
[2023-01-17] MEDS: SODIUM CHLORIDE 1,000 ML IV SCH (03:00)
[2023-01-17] MEDS ORDERED: INSULIN SLIDING SCALE (NOVOLOG) 1 VIAL SQ SCH (07:00)
[2023-01-17] MEDS: FERROUS SO4 325 MG TABLET (FP) PO SCH ×3 (08:50→18:05)
[2023-01-17] MEDS ORDERED: ENOXAPARIN NA (PORCINE) 40 MG/0.4 ML DISP.SYRIN SQ SCH (10:00)
[2023-01-17] MEDS: FAMOTIDINE 20 MG TABLET PO SCH (11:00)
[2023-01-17] MEDS: FOLIC ACID 1 MG TABLET (FP) PO SCH (11:01)
[2023-01-17] MEDS: PANTOPRAZOLE 40 MG TABLET PO SCH (11:02)
[2023-01-17] MEDS: INSULIN SLIDING SCALE (NOVOLOG) 1 VIAL SQ SCH ×3 (11:33→22:35)
[2023-01-17 11:44] LABS: BASO % 0.6 % (0-2.0); EOS % 4.4 % (0-4.5); HEMOGLOBIN 10.9 GM/dL (10.7-15.3); LYMPH % 21.8 % (8-40); MCH 25.4 pg (25.7-33.7); MCHC 32.2 g/dl (32.0-36.0); MEAN CELL VOLUME 79.1 fl (80-96); MEAN PLT VOLUME 8.2 fl (7.5-11.1); MONO % 6.6 % (3.8-10.2); NEUT % 66.6 % (42.8-82.8); PLATELET COUNT 266 10^3/uL (134-434); RDW 16.1 % (11.6-15.6); WHITE BLOOD COUNT 5.2 K/mm3 (4.0-10.0)
[2023-01-17 12:05] LABS: POTASSIUM 3.7 mmol/L (3.5-5.1)
[2023-01-17 12:12] LABS: ALBUMIN 2.8 g/dl (3.4-5.0); BLOOD UREA NITROGEN 9.6 mg/dL (7-18); CALCIUM 8.2 mg/dL (8.5-10.1)
[2023-01-17 12:13] LABS: PHOSPHOROUS 3.3 mg/dL (2.5-4.9)
[2023-01-17 12:15] LABS: BILIRUBIN,TOTAL 0.5 mg/dL (0.2-1); CREATININE 0.3 mg/dL (0.55-1.3); TOT PROT 6.3 g/dl (6.4-8.2)
[2023-01-17] MEDS ORDERED: MAGNESIUM CITRATE 300 ML BOTTLE PO ONE (18:15)
[2023-01-17] MEDS ORDERED: MIRTAZAPINE 15 MG TABLET (FP) PO SCH (22:00)
[2023-01-17] MEDS ORDERED: ATORVASTATIN CA 20 MG TABLET (FP) PO SCH (22:00)
[2023-01-17] MEDS ORDERED: DONEPEZIL HCL 10 MG TABLET (FP) PO SCH (22:00)
[2023-01-18] MEDS: INSULIN SLIDING SCALE (NOVOLOG) 1 VIAL SQ SCH ×3 (06:08→21:24)
[2023-01-18] MEDS: SODIUM CHLORIDE 1,000 ML IV SCH (06:09)
[2023-01-18] MEDS: FAMOTIDINE 20 MG TABLET PO SCH (09:16)
[2023-01-18] MEDS: FOLIC ACID 1 MG TABLET (FP) PO SCH (09:16)
[2023-01-18] MEDS: FERROUS SO4 325 MG TABLET (FP) PO SCH ×2 (09:16→18:20)
[2023-01-18] MEDS: PANTOPRAZOLE 40 MG TABLET PO SCH (09:16)
[2023-01-18 10:18] LABS: BASO % 0.9 % (0-2.0); EOS % 5.5 % (0-4.5); HEMATOCRIT 33.9 % (32.4-45.2); LYMPH % 23.1 % (8-40); MCH 25.6 pg (25.7-33.7); MCHC 32.4 g/dl (32.0-36.0); MEAN PLT VOLUME 7.5 fl (7.5-11.1); MONO % 6.7 % (3.8-10.2); NEUT % 63.8 % (42.8-82.8); PLATELET COUNT 255 10^3/uL (134-434); RBC 4.29 M/mm3 (3.60-5.2); RDW 16.3 % (11.6-15.6); WHITE BLOOD COUNT 5.6 K/mm3 (4.0-10.0)
[2023-01-18 10:24] LABS: INR 1.1 (0.83-1.09); PROTHROMBIN TIME (PATIENT) 12.7 SEC (9.7-13.0)
[2023-01-18 10:39] LABS: POTASSIUM 3.6 mmol/L (3.5-5.1)
[2023-01-18 10:41] LABS: BLOOD UREA NITROGEN 5.2 mg/dL (7-18)
[2023-01-18 10:44] LABS: CREATININE 0.4 mg/dL (0.55-1.3)
[2023-01-18] MEDS ORDERED: PNEUMOC 20-VAL CONJ-DIP CRM/PF 0.5 ML SYRINGE IM ONE (12:00)
[2023-01-18] MEDS ORDERED: BUPIVACAINE HCL/PF 0.25% (2.5MG/ML) 10 ML VIAL ONE (12:04)
[2023-01-18] MEDS ORDERED: PROPOFOL 20 ML ONE (12:44)
[2023-01-18] MEDS ORDERED: ACETAMINOPHEN 325 MG TABLET (FP) PO PRN ×2 (14:01→14:22)
[2023-01-18] MEDS ORDERED: ONDANSETRON 4 MG/2 ML VIAL IVPUSH PRN ×2 (14:01→14:22)
[2023-01-18 16:37] VITALS: BMI 17.5
[2023-01-18 21:23] VITALS: RESP 18
[2023-01-18] MEDS ORDERED: MIRTAZAPINE 15 MG TABLET (FP) PO SCH (22:00)
[2023-01-18] MEDS ORDERED: ATORVASTATIN CA 20 MG TABLET (FP) PO SCH (22:00)
[2023-01-18] MEDS ORDERED: DONEPEZIL HCL 10 MG TABLET (FP) PO SCH (22:00)
[2023-01-19] MEDS: INSULIN SLIDING SCALE (NOVOLOG) 1 VIAL SQ SCH ×2 (06:01→12:22)
[2023-01-19] MEDS: FERROUS SO4 325 MG TABLET (FP) PO SCH ×2 (09:02→12:22)
[2023-01-19] MEDS ORDERED: PANTOPRAZOLE 40 MG TABLET PO SCH (10:00)
[2023-01-19] MEDS ORDERED: RAMIPRIL 1.25 MG CAPSULE PO SCH (10:00)
[2023-01-19] MEDS ORDERED: FOLIC ACID 1 MG TABLET (FP) PO SCH (10:00)
[2023-01-19 10:59] VITALS: BP 137/71; PULSE 85; TEMP 99.1
== END 2023-01-19 13:56 | disposition home or self-care (01) | DRG 395 ==
LOC: JER 14:14 → JERBED 21:37 → J5S 01-17 00:03
PROVIDERS: ADMIT Internal Medicine; ATTEND Student in an Organized Health Care Education/Training Program
PROC: 0DJD8ZZ Inspection of Lower Intestinal Tract, Via Natural or Artificial Opening Endoscopic (ICD-10-PCS; 2023-01-18)
PROC: 0DCP8ZZ Extirpation of Matter from Rectum, Via Natural or Artificial Opening Endoscopic (ICD-10-PCS; principal; 2023-01-18 14:00)
DX: T18.5XXA Foreign body in anus and rectum, initial encounter (principal); X58.XXXA Exposure to other specified factors, initial encounter; Y93.89 Activity, other specified; Y92.9 Unspecified place or not applicable; Y99.9 Unspecified external cause status; R19.7 Diarrhea, unspecified; I10 Essential (primary) hypertension; E11.9 Type 2 diabetes mellitus without complications; G30.9 Alzheimer's disease, unspecified; F02.80 Dementia in other diseases classified elsewhere, unspecified severity, without behavioral disturbance, psychotic disturbance, mood disturbance, and anxiety; D50.9 Iron deficiency anemia, unspecified; E78.5 Hyperlipidemia, unspecified; E83.42 Hypomagnesemia; K57.90 Diverticulosis of intestine, part unspecified, without perforation or abscess without bleeding
CPT/HCPCS: 36415; 72192-TC; 74177-TC; 80048; 80053; 82272; 82438; 82962; 83036; 83605; 83690; 83735; 83993; 84100; 84302; 84443; 84999; 85025; 85610; 86850; 86900; 86901; 87045; 87046; 87635; 88300-TC; 93005; 93010; 94760; 99285-25; Q9967

== ENCOUNTER 2023-05-31 11:19 | Inpatient (IN) | payer BC, OTHER ==
[2023-05-31 13:03] LABS: BASO % 0.6 % (0-2.0); EOS % 0.1 % (0-4.5); HEMATOCRIT 39.1 % (32.4-45.2); HEMOGLOBIN 13.1 GM/dL (10.7-15.3); LYMPH % 16.3 % (8-40); MCH 26.5 pg (25.7-33.7); MCHC 33.6 g/dl (32.0-36.0); MEAN CELL VOLUME 78.9 fl (80-96); MEAN PLT VOLUME 8.8 fl (7.5-11.1); PLATELET COUNT 179 10^3/uL (134-434); RBC 4.95 M/mm3 (3.60-5.2); RDW 15.5 % (11.6-15.6); WHITE BLOOD COUNT 3.8 K/mm3 (4.0-10.0)
[2023-05-31 13:13] LABS: INR 1.05 (0.83-1.09); PROTHROMBIN TIME (PATIENT) 12.2 SEC (9.7-13.0)
[2023-05-31 13:16] LABS: ACTIVATED PTT 30.1 SECONDS (25.2-36.5)
[2023-05-31 13:23] LABS: POTASSIUM 3.7 mmol/L (3.5-5.1)
[2023-05-31 13:25] LABS: CALCIUM 8.8 mg/dL (8.5-10.1)
[2023-05-31 13:26] LABS: ALBUMIN 2.9 g/dl (3.4-5.0); BLOOD UREA NITROGEN 23.9 mg/dL (7-18)
[2023-05-31 13:29] LABS: CREATININE 0.8 mg/dL (0.55-1.3)
[2023-05-31 13:30] LABS: BILIRUBIN,TOTAL 0.3 mg/dL (0.2-1); TOT PROT 7.3 g/dl (6.4-8.2)
[2023-05-31] MEDS ORDERED: SODIUM CHLORIDE 1,000 ML IV STA (15:53)
[2023-05-31 16:23] LABS: EPI CELLS 14 /uL (0-25.1); HYALINE CASTS 12 /uL (0-3.1); URINE APPEARANCE CLOUDY; URINE BACTERIA >9,000 /uL (0-1359); URINE BILIRUBIN NEGATIVE (NEGATIVE); URINE COLOR DK YELLOW; URINE GLUCOSE (UA) NEGATIVE (NEGATIVE); URINE KETONE TRACE (NEGATIVE); URINE LEUK ESTERASE 1+ (NEGATIVE); URINE NITRITE POSITIVE (NEGATIVE); URINE PROTEIN 1+ (NEGATIVE); URINE RBC 11 /uL (0-23.9); URINE WBC 225 /uL (0-25.8)
[2023-05-31] MEDS ORDERED: REMDESIVIR 200 MG in SODIUM CHLORIDE 250 ML IVPB ONE (18:00)
[2023-05-31] MEDS: HEPARIN NA (PORCINE) 5,000 UNITS/ML 1ML VIAL SQ SCH (21:21)
[2023-05-31] MEDS ORDERED: PATIENT'S OWN MEDICATION (NON-FORMULARY) (Simvastatin [Simvastatin] 10 MG Tablet) PO SCH (22:00)
[2023-05-31] MEDS ORDERED: ATORVASTATIN CA 20 MG TABLET (FP) PO SCH (22:00)
[2023-06-01 08:40] LABS: BASO % 0.7 % (0-2.0); EOS % 0.1 % (0-4.5); HEMATOCRIT 38.7 % (32.4-45.2); HEMOGLOBIN 12.5 GM/dL (10.7-15.3); LYMPH % 31.6 % (8-40); MCH 25.5 pg (25.7-33.7); MCHC 32.2 g/dl (32.0-36.0); MEAN CELL VOLUME 79.3 fl (80-96); MEAN PLT VOLUME 8.1 fl (7.5-11.1); MONO % 7.6 % (3.8-10.2); PLATELET COUNT 195 10^3/uL (134-434); RBC 4.88 M/mm3 (3.60-5.2); RDW 15.1 % (11.6-15.6); WHITE BLOOD COUNT 3.7 K/mm3 (4.0-10.0)
[2023-06-01 09:06] LABS: POTASSIUM 3.8 mmol/L (3.5-5.1)
[2023-06-01 09:14] LABS: CALCIUM 8.7 mg/dL (8.5-10.1)
[2023-06-01 09:15] LABS: ALBUMIN 2.8 g/dl (3.4-5.0); BLOOD UREA NITROGEN 15.7 mg/dL (7-18); MAGNESIUM 1.7 mg/dL (1.8-2.4)
[2023-06-01 09:18] LABS: CREATININE 0.5 mg/dL (0.55-1.3); PHOSPHOROUS 2.8 mg/dL (2.5-4.9)
[2023-06-01 09:19] LABS: BILIRUBIN,TOTAL 0.3 mg/dL (0.2-1)
[2023-06-01 09:20] LABS: TOT PROT 7.1 g/dl (6.4-8.2)
[2023-06-01] MEDS ORDERED: PATIENT'S OWN MEDICATION (NON-FORMULARY) (Famotidine 40 MG Tablet) PO SCH (10:00)
[2023-06-01] MEDS: FAMOTIDINE 40 MG TABLET PO SCH (10:10)
[2023-06-01] MEDS: DONEPEZIL HCL 10 MG TABLET (FP) PO SCH (10:11)
[2023-06-01] MEDS: PANTOPRAZOLE 40 MG TABLET PO SCH (10:11)
[2023-06-01] MEDS: HEPARIN NA (PORCINE) 5,000 UNITS/ML 1ML VIAL SQ SCH ×2 (10:11→21:23)
[2023-06-01] MEDS ORDERED: MAGNESIUM 2GM/50ML STERILE WATER IVPB IVPB ONE (11:00)
[2023-06-01] MEDS ORDERED: MAGNESIUM 1GM/D5W - 1 GM/100 ML IVPB IVPB ONE (13:00)
[2023-06-01] MEDS: REMDESIVIR 100 MG in SODIUM CHLORIDE 250 ML IVPB SCH (14:00)
[2023-06-01] MEDS: CEFTRIAXONE 1 GM in DEXTROSE 5%-WATER - 50 ML IVPB SCH (14:22)
[2023-06-01] MEDS: MIRTAZAPINE 15 MG TABLET (FP) PO SCH (21:22)
[2023-06-02 08:25] LABS: BASO % 0.8 % (0-2.0); HEMATOCRIT 36.8 % (32.4-45.2); LYMPH % 37.2 % (8-40); MCH 25.6 pg (25.7-33.7); MCHC 32.6 g/dl (32.0-36.0); MEAN CELL VOLUME 78.4 fl (80-96); MEAN PLT VOLUME 8.4 fl (7.5-11.1); MONO % 8.4 % (3.8-10.2); NEUT % 52.6 % (42.8-82.8); PLATELET COUNT 156 10^3/uL (134-434); RBC 4.69 M/mm3 (3.60-5.2); RDW 15.8 % (11.6-15.6); WHITE BLOOD COUNT 2.6 K/mm3 (4.0-10.0)
[2023-06-02 08:34] LABS: POTASSIUM 3.8 mmol/L (3.5-5.1)
[2023-06-02 08:37] LABS: ALBUMIN 2.6 g/dl (3.4-5.0)
[2023-06-02 08:39] LABS: BLOOD UREA NITROGEN 12.9 mg/dL (7-18)
[2023-06-02 08:40] LABS: CALCIUM 8.5 mg/dL (8.5-10.1)
[2023-06-02 08:43] LABS: CREATININE 0.4 mg/dL (0.55-1.3)
[2023-06-02 08:46] LABS: BILIRUBIN,TOTAL 0.2 mg/dL (0.2-1); TOT PROT 6.3 g/dl (6.4-8.2)
[2023-06-02 09:06] LABS: ERYTHROCYTE SEDIMENTATION RATE 20 mm/hr (0-30)
[2023-06-02] MEDS: DONEPEZIL HCL 10 MG TABLET (FP) PO SCH (09:39)
[2023-06-02] MEDS: HEPARIN NA (PORCINE) 5,000 UNITS/ML 1ML VIAL SQ SCH ×2 (09:39→21:21)
[2023-06-02] MEDS: REMDESIVIR 100 MG in SODIUM CHLORIDE 250 ML IVPB SCH (09:39)
[2023-06-02] MEDS: PANTOPRAZOLE 40 MG TABLET PO SCH (09:39)
[2023-06-02] MEDS: CEFTRIAXONE 1 GM in DEXTROSE 5%-WATER - 50 ML IVPB SCH (09:39)
[2023-06-02] MEDS: DEXAMETHASONE SOD PHOSPHATE 10 MG/1 ML VIAL IVPUSH SCH (09:40)
[2023-06-02] MEDS: FAMOTIDINE 40 MG TABLET PO SCH (09:40)
[2023-06-02 15:36] VITALS: BMI 15.7
[2023-06-02] MEDS: MIRTAZAPINE 15 MG TABLET (FP) PO SCH (21:21)
[2023-06-03 08:47] LABS: BASO % 0.2 % (0-2.0); EOS % 0.4 % (0-4.5); HEMOGLOBIN 11.3 GM/dL (10.7-15.3); LYMPH % 32.4 % (8-40); MCH 25.8 pg (25.7-33.7); MCHC 33.2 g/dl (32.0-36.0); MEAN CELL VOLUME 77.8 fl (80-96); MEAN PLT VOLUME 8.3 fl (7.5-11.1); MONO % 6.4 % (3.8-10.2); NEUT % 60.6 % (42.8-82.8); PLATELET COUNT 148 10^3/uL (134-434); RBC 4.37 M/mm3 (3.60-5.2); RDW 15.5 % (11.6-15.6); WHITE BLOOD COUNT 3.7 K/mm3 (4.0-10.0)
[2023-06-03 09:12] LABS: ALBUMIN 2.5 g/dl (3.4-5.0)
[2023-06-03 09:15] LABS: CREATININE 0.5 mg/dL (0.55-1.3)
[2023-06-03 09:17] LABS: BILIRUBIN,TOTAL 0.2 mg/dL (0.2-1); TOT PROT 6.1 g/dl (6.4-8.2)
[2023-06-03] MEDS: PANTOPRAZOLE 40 MG TABLET PO SCH (10:24)
[2023-06-03] MEDS: CEFTRIAXONE 1 GM in DEXTROSE 5%-WATER - 50 ML IVPB SCH (10:24)
[2023-06-03] MEDS: HEPARIN NA (PORCINE) 5,000 UNITS/ML 1ML VIAL SQ SCH ×2 (10:25→21:13)
[2023-06-03] MEDS: DEXAMETHASONE SOD PHOSPHATE 10 MG/1 ML VIAL IVPUSH SCH (10:25)
[2023-06-03] MEDS: REMDESIVIR 100 MG in SODIUM CHLORIDE 250 ML IVPB SCH (10:25)
[2023-06-03] MEDS: DONEPEZIL HCL 10 MG TABLET (FP) PO SCH (10:25)
[2023-06-03] MEDS: MIRTAZAPINE 15 MG TABLET (FP) PO SCH (21:14)
[2023-06-04 08:23] LABS: HEMATOCRIT 34.1 % (32.4-45.2); MCH 25.4 pg (25.7-33.7); MCHC 32.3 g/dl (32.0-36.0); MEAN CELL VOLUME 78.6 fl (80-96); MEAN PLT VOLUME 8.4 fl (7.5-11.1); PLATELET COUNT 134 10^3/uL (134-434); RBC 4.33 M/mm3 (3.60-5.2); RDW 15.3 % (11.6-15.6); WHITE BLOOD COUNT 3.6 K/mm3 (4.0-10.0)
[2023-06-04 08:41] LABS: POTASSIUM 3.8 mmol/L (3.5-5.1)
[2023-06-04 08:44] LABS: ALBUMIN 2.5 g/dl (3.4-5.0); CALCIUM 9.2 mg/dL (8.5-10.1)
[2023-06-04 08:45] LABS: BLOOD UREA NITROGEN 21.3 mg/dL (7-18); MAGNESIUM 1.7 mg/dL (1.8-2.4)
[2023-06-04 08:48] LABS: CREATININE 0.4 mg/dL (0.55-1.3)
[2023-06-04 08:49] LABS: BILIRUBIN,TOTAL 0.2 mg/dL (0.2-1); TOT PROT 6.1 g/dl (6.4-8.2)
[2023-06-04 08:51] LABS: PHOSPHOROUS 2.9 mg/dL (2.5-4.9)
[2023-06-04] MEDS: DEXAMETHASONE SOD PHOSPHATE 10 MG/1 ML VIAL IVPUSH SCH (09:48)
[2023-06-04] MEDS: HEPARIN NA (PORCINE) 5,000 UNITS/ML 1ML VIAL SQ SCH ×2 (09:48→22:23)
[2023-06-04] MEDS: PANTOPRAZOLE 40 MG TABLET PO SCH (09:48)
[2023-06-04] MEDS: DONEPEZIL HCL 10 MG TABLET (FP) PO SCH (09:48)
[2023-06-04] MEDS: CEFTRIAXONE 1 GM in DEXTROSE 5%-WATER - 50 ML IVPB SCH (09:49)
[2023-06-04] MEDS: REMDESIVIR 100 MG in SODIUM CHLORIDE 250 ML IVPB SCH (09:50)
[2023-06-04] MEDS: MIRTAZAPINE 15 MG TABLET (FP) PO SCH (22:23)
[2023-06-05 09:45] LABS: HEMATOCRIT 33.2 % (32.4-45.2); MCH 25.9 pg (25.7-33.7); MCHC 33.2 g/dl (32.0-36.0); MEAN CELL VOLUME 78.2 fl (80-96); MEAN PLT VOLUME 8.5 fl (7.5-11.1); PLATELET COUNT 143 10^3/uL (134-434); RBC 4.25 M/mm3 (3.60-5.2); RDW 15.7 % (11.6-15.6); WHITE BLOOD COUNT 4.2 K/mm3 (4.0-10.0)
[2023-06-05 09:52] LABS: POTASSIUM 3.8 mmol/L (3.5-5.1)
[2023-06-05 09:58] LABS: BLOOD UREA NITROGEN 18.2 mg/dL (7-18)
[2023-06-05 09:59] LABS: CALCIUM 8.7 mg/dL (8.5-10.1)
[2023-06-05] MEDS: PANTOPRAZOLE 40 MG TABLET PO SCH (09:59)
[2023-06-05] MEDS: HEPARIN NA (PORCINE) 5,000 UNITS/ML 1ML VIAL SQ SCH (10:00)
[2023-06-05] MEDS: CEFTRIAXONE 1 GM in DEXTROSE 5%-WATER - 50 ML IVPB SCH (10:00)
[2023-06-05] MEDS: DEXAMETHASONE SOD PHOSPHATE 10 MG/1 ML VIAL IVPUSH SCH (10:00)
[2023-06-05] MEDS: DONEPEZIL HCL 10 MG TABLET (FP) PO SCH (10:00)
[2023-06-05 10:02] LABS: CREATININE 0.3 mg/dL (0.55-1.3)
[2023-06-05 14:13] VITALS: BP 109/60; PULSE 60; RESP 19; TEMP 98.4
== END 2023-06-05 17:28 | disposition home or self-care (01) | DRG 178 ==
LOC: JER 11:19 → JERBED 14:27 → J4S 18:43 → OBSVTOIN 06-02 10:23
PROVIDERS: ADMIT Internal Medicine; ATTEND Internal Medicine
PROC: XW033E5 Introduction of Remdesivir Anti-infective into Peripheral Vein, Percutaneous Approach, New Technology Group 5 (ICD-10-PCS; principal; 2023-05-31)
DX: U07.1 COVID-19 (principal); N17.9 Acute kidney failure, unspecified; N39.0 Urinary tract infection, site not specified; Z68.1 Body mass index [BMI] 19.9 or less, adult; I10 Essential (primary) hypertension; E78.5 Hyperlipidemia, unspecified; E11.9 Type 2 diabetes mellitus without complications; D64.9 Anemia, unspecified; G30.9 Alzheimer's disease, unspecified; F02.80 Dementia in other diseases classified elsewhere, unspecified severity, without behavioral disturbance, psychotic disturbance, mood disturbance, and anxiety; R19.7 Diarrhea, unspecified; R55 Syncope and collapse; E83.42 Hypomagnesemia; D70.9 Neutropenia, unspecified; R09.02 Hypoxemia; R63.0 Anorexia; B96.20 Unspecified Escherichia coli [E. coli] as the cause of diseases classified elsewhere; Z74.01 Bed confinement status
CPT/HCPCS: 0241U-QW; 36415; 71045-TC-FY; 80048; 80053; 81003; 82962; 83735; 84100; 84484; 85025; 85027; 85610; 85651; 85730; 86140; 86850; 86900; 86901; 87086; 87186; 93005; 93010; 94761; 97116-GP; 97161-GP; 99285-25; G0378; J0248; J1100; J1644

== ENCOUNTER 2023-09-19 12:00 | Emergency (ER) | payer BC, OTHER ==
[2023-09-19 12:58] VITALS: BP 143/77; PULSE 77; RESP 17; TEMP 98.7; BMI 19.5
[2023-09-19 13:47] LABS: HEMATOCRIT 36.9 % (32.4-45.2); HEMOGLOBIN 12.3 GM/dL (10.7-15.3); LYMPH % 13.5 % (8-40); MCH 26.6 pg (25.7-33.7); MCHC 33.5 g/dl (32.0-36.0); MEAN CELL VOLUME 79.4 fl (80-96); MEAN PLT VOLUME 7.9 fl (7.5-11.1); MONO % 7.8 % (3.8-10.2); NEUT % 73.7 % (42.8-82.8); PLATELET COUNT 231 10^3/uL (134-434); RBC 4.65 M/mm3 (3.60-5.2); RDW 15.9 % (11.6-15.6); WHITE BLOOD COUNT 6.5 K/mm3 (4.0-10.0)
[2023-09-19 14:05] LABS: POTASSIUM 3.8 mmol/L (3.5-5.1)
[2023-09-19 14:06] LABS: CALCIUM 9.3 mg/dL (8.5-10.1)
[2023-09-19 14:07] LABS: BLOOD UREA NITROGEN 13.9 mg/dL (7-18)
[2023-09-19 14:10] LABS: CREATININE 0.5 mg/dL (0.55-1.3)
[2023-09-19 14:12] LABS: BILIRUBIN,TOTAL 0.3 mg/dL (0.2-1); TOT PROT 6.8 g/dl (6.4-8.2)
[2023-09-19 14:53] LABS: EPI CELLS 26 /uL (0-25.1); HYALINE CASTS 1 /uL (0-3.1); URINE APPEARANCE CLEAR; URINE BACTERIA 220 /uL (0-1359); URINE BILIRUBIN NEGATIVE (NEGATIVE); URINE COLOR YELLOW; URINE GLUCOSE (UA) NEGATIVE (NEGATIVE); URINE KETONE TRACE (NEGATIVE); URINE LEUK ESTERASE 1+ (NEGATIVE); URINE NITRITE NEGATIVE (NEGATIVE); URINE PROTEIN NEGATIVE (NEGATIVE); URINE RBC 20 /uL (0-23.9); URINE WBC 38 /uL (0-25.8)
[2023-09-19] MEDS: SODIUM CHLORIDE 0.9% 500 ML INFUS.BAG IV ONE (14:55)
[2023-09-19] MEDS ORDERED: CEFTRIAXONE 1 GM/50 ML BAG ONE (15:47)
[2023-09-19] MEDS: CEFTRIAXONE 1,000 MG in DEXTROSE 5%-WATER - 50 ML IVPB ONE (15:54)
== END 2023-09-19 17:37 | disposition home or self-care (01) ==
LOC: JER 12:00
DX: N39.0 Urinary tract infection, site not specified (principal); K52.9 Noninfective gastroenteritis and colitis, unspecified; E86.0 Dehydration; Z20.822 Contact with and (suspected) exposure to COVID-19
CPT/HCPCS: 0241U-QW; 36415; 71045-TC-FY; 80053; 81003; 82272; 83735; 85025; 86850; 86900; 86901; 87086; 87186; 93005; 93010; 99285-25

== ENCOUNTER 2024-08-21 16:22 | Inpatient (IN) | payer BC, OTHER ==
[2024-08-21] MEDS: SODIUM CHLORIDE 0.9% 500 ML INFUS.BAG IV ONE (17:44)
[2024-08-21 17:47] LABS: ABSOLUTE IMMATURE GRANULOCYTES 0.02 x10^3/uL (0.0-0.031); BASOPHILS # 0.05 x10^3/uL (0.01-0.08); EOSINOPHIL % 2.9 % (0.7-5.8); EOSINOPHILS # 0.18 x10^3/uL (0.04-0.36); HEMATOCRIT 24.7 % (34.1-44.9); HEMOGLOBIN 6.6 g/dL (11.2-15.7); MCHC 26.7 g/dl (32.2-35.5); MEAN CELL VOLUME 63.2 fl (79.4-94.8); MONOCYTE # 0.72 x10^3/uL (0.24-0.86); MONOCYTE % 11.7 % (4.7-12.5); PLATELET COUNT 296 x10^3/uL (182-369); RDW 20.7 % (12.5-17.0)
[2024-08-21 18:03] LABS: INR 0.98 (0.83-1.09); PROTHROMBIN TIME (PATIENT) 10.7 SEC (9.7-13.0)
[2024-08-21 18:04] LABS: PH,URINE 5.5 (5.0-8.0); URINE APPEARANCE CLEAR; URINE BILIRUBIN NEGATIVE (NEGATIVE); URINE COLOR YELLOW; URINE GLUCOSE (UA) NEGATIVE (NEGATIVE); URINE KETONE NEGATIVE (NEGATIVE); URINE LEUK ESTERASE NEGATIVE (NEGATIVE); URINE NITRITE NEGATIVE (NEGATIVE); URINE PROTEIN NEGATIVE (NEGATIVE)
[2024-08-21 18:07] LABS: POTASSIUM 3.8 mmol/L (3.5-5.1)
[2024-08-21 18:09] LABS: CALCIUM 8.8 mg/dL (8.5-10.1)
[2024-08-21 18:10] LABS: ALBUMIN 2.6 g/dl (3.4-5.0); BLOOD UREA NITROGEN 11.6 mg/dL (7-18); MAGNESIUM 1.9 mg/dL (1.8-2.4)
[2024-08-21 18:13] LABS: CREATININE 0.5 mg/dL (0.55-1.3); PHOSPHOROUS 3.4 mg/dL (2.5-4.9)
[2024-08-21 18:14] LABS: BILIRUBIN,TOTAL 0.4 mg/dL (0.2-1); TOT PROT 6.7 g/dl (6.4-8.2)
[2024-08-21] MEDS ORDERED: PANTOPRAZOLE SODIUM 40 MG VIAL ONE (19:53)
[2024-08-21] MEDS: PANTOPRAZOLE SODIUM 40 MG VIAL IVPUSH ONE (19:57)
[2024-08-21] MEDS ORDERED: SODIUM CHLORIDE 1,000 ML IV SCH (21:15)
[2024-08-21] MEDS: DONEPEZIL HCL 5 MG TABLET (FP) PO SCH (21:43)
[2024-08-21] MEDS: ATORVASTATIN CA 20 MG TABLET (FP) PO SCH (21:49)
[2024-08-21 22:01] VITALS: BMI 16.7
[2024-08-22] MEDS: SODIUM CHLORIDE 1,000 ML IV SCH (00:47)
[2024-08-22 06:45] LABS: ABSOLUTE IMMATURE GRANULOCYTES 0.02 x10^3/uL (0.0-0.031); BASOPHILS # 0.03 x10^3/uL (0.01-0.08); EOSINOPHIL % 2.1 % (0.7-5.8); EOSINOPHILS # 0.08 x10^3/uL (0.04-0.36); HEMATOCRIT 27.2 % (34.1-44.9); HEMOGLOBIN 7.9 g/dL (11.2-15.7); MEAN CELL VOLUME 67.2 fl (79.4-94.8); MEAN PLT VOLUME 9.8 fl (9.4-12.3); MONOCYTE # 0.38 x10^3/uL (0.24-0.86); MONOCYTE % 10.2 % (4.7-12.5); PLATELET COUNT 220 x10^3/uL (182-369); RDW 24.8 % (12.5-17.0)
[2024-08-22 06:53] LABS: Reticulocyte % 1.56 % (0.5-1.7)
[2024-08-22 07:07] LABS: POTASSIUM 3.4 mmol/L (3.5-5.1)
[2024-08-22 07:13] LABS: ALBUMIN 2.3 g/dl (3.4-5.0); BLOOD UREA NITROGEN 6.6 mg/dL (7-18); CALCIUM 8.6 mg/dL (8.5-10.1); MAGNESIUM 1.8 mg/dL (1.8-2.4)
[2024-08-22 07:17] LABS: BILIRUBIN,TOTAL 0.7 mg/dL (0.2-1); CREATININE 0.3 mg/dL (0.55-1.3); TOT PROT 5.6 g/dl (6.4-8.2)
[2024-08-22] MEDS: FERROUS SO4 325 MG TABLET (FP) PO SCH (09:13)
[2024-08-22] MEDS: MIRTAZAPINE 15 MG TABLET (FP) PO SCH (09:13)
[2024-08-22] MEDS: POTASSIUM CHLORIDE ORAL LIQUID 20 MEQ/15 ML PO ONE (09:13)
[2024-08-22] MEDS: PANTOPRAZOLE SODIUM 40 MG VIAL IVPUSH SCH (09:13)
[2024-08-22 15:42] LABS: ABSOLUTE IMMATURE GRANULOCYTES 0.02 x10^3/uL (0.0-0.031); BASOPHILS # 0.03 x10^3/uL (0.01-0.08); EOSINOPHIL % 2.4 % (0.7-5.8); EOSINOPHILS # 0.13 x10^3/uL (0.04-0.36); HEMATOCRIT 28.4 % (34.1-44.9); HEMOGLOBIN 8.3 g/dL (11.2-15.7); MCHC 29.2 g/dl (32.2-35.5); MEAN CELL VOLUME 67.6 fl (79.4-94.8); MEAN PLT VOLUME 9.9 fl (9.4-12.3); MONOCYTE # 0.64 x10^3/uL (0.24-0.86); MONOCYTE % 11.8 % (4.7-12.5); PLATELET COUNT 229 x10^3/uL (182-369); RDW 24.2 % (12.5-17.0)
[2024-08-23 07:47] LABS: ABSOLUTE IMMATURE GRANULOCYTES 0.03 x10^3/uL (0.0-0.031); BASOPHILS # 0.04 x10^3/uL (0.01-0.08); EOSINOPHIL % 5.2 % (0.7-5.8); EOSINOPHILS # 0.25 x10^3/uL (0.04-0.36); HEMATOCRIT 28.8 % (34.1-44.9); HEMOGLOBIN 8.3 g/dL (11.2-15.7); MCHC 28.8 g/dl (32.2-35.5); MEAN CELL VOLUME 67.6 fl (79.4-94.8); MEAN PLT VOLUME 10.3 fl (9.4-12.3); MONOCYTE # 0.49 x10^3/uL (0.24-0.86); MONOCYTE % 10.2 % (4.7-12.5); PLATELET COUNT 251 x10^3/uL (182-369); RDW 24.4 % (12.5-17.0)
[2024-08-24 02:37] LABS: CREATININE 0.4 mg/dL (0.55-1.3)
[2024-08-24 02:38] LABS: CALCIUM 8.7 mg/dL (8.5-10.1); MAGNESIUM 1.6 mg/dL (1.8-2.4); PHOSPHOROUS 2.9 mg/dL (2.5-4.9); POTASSIUM 3.7 mmol/L (3.5-5.1); TOT PROT 5.8 g/dl (6.4-8.2)
[2024-08-24 02:39] LABS: ALBUMIN 2.3 g/dl (3.4-5.0); BILIRUBIN,TOTAL 0.8 mg/dL (0.2-1)
[2024-08-24 08:29] LABS: HEMATOCRIT 31.3 % (34.1-44.9); MCHC 28.8 g/dl (32.2-35.5); MEAN PLT VOLUME 10.1 fl (9.4-12.3); PLATELET COUNT 294 x10^3/uL (182-369); RDW 25.9 % (12.5-17.0)
[2024-08-24 08:56] LABS: POTASSIUM 4.1 mmol/L (3.5-5.1)
[2024-08-24 08:57] LABS: CALCIUM 8.8 mg/dL (8.5-10.1)
[2024-08-24 08:58] LABS: BLOOD UREA NITROGEN 9.7 mg/dL (7-18)
[2024-08-24 09:01] LABS: CREATININE 0.5 mg/dL (0.55-1.3)
[2024-08-24] MEDS: MAGNESIUM OXIDE 400 MG TABLET (FP) PO ONE (09:26)
[2024-08-25 15:46] VITALS: RESP 19; TEMP 98.6
[2024-08-25 15:50] VITALS: BP 112/51; PULSE 75
== END 2024-08-25 17:39 | DRG 391 ==
LOC: JER 16:22 → JERBED 17:54 → J4W 21:10 → OBSVTOIN 08-23 10:24
PROVIDERS: ADMIT Hospitalist; ATTEND Internal Medicine
PROC: 30233N1 Transfusion of Nonautologous Red Blood Cells into Peripheral Vein, Percutaneous Approach (ICD-10-PCS; principal; 2024-08-21)
DX: K52.9 Noninfective gastroenteritis and colitis, unspecified (principal); E43 Unspecified severe protein-calorie malnutrition; K92.2 Gastrointestinal hemorrhage, unspecified; Z68.1 Body mass index [BMI] 19.9 or less, adult; D50.9 Iron deficiency anemia, unspecified; D64.9 Anemia, unspecified; G30.9 Alzheimer's disease, unspecified; F02.80 Dementia in other diseases classified elsewhere, unspecified severity, without behavioral disturbance, psychotic disturbance, mood disturbance, and anxiety; E11.9 Type 2 diabetes mellitus without complications; R74.8 Abnormal levels of other serum enzymes; I10 Essential (primary) hypertension; E78.5 Hyperlipidemia, unspecified
CPT/HCPCS: 36415; 36430; 74174-TC; 80048; 80053; 81003; 82272; 82728; 83540; 83550; 83690; 83735; 84100; 85025; 85027; 85610; 85730; 86850; 86900; 86901; 86922; 87086; 93005; 93010; 97116-GP; 97161-GP; 99285-25; G0378; P9058